=== PATIENT | male | born 1945 | race Caucasian/White ===

== ENCOUNTER → 2017-12-15 | Outpatient (CLI) | payer MEDICARE, OTHER ==
--- NOTE | 2017-12-15 10:11 | US ---
EXAMINATION TYPE: US liver DATE OF EXAM: 12/15/2017 COMPARISON: CLINICAL HISTORY: R94.5 ABN RESULTS OF LIVER. NPO, No pain, abn labs EXAM MEASUREMENTS: Liver Length: 16.7 cm Gallbladder Wall: 0.2 cm CHD: 0.4 cm Right Kidney: 11.5 x 5.6 x 5.8 cm Limited exam due to patient body habitus and overlying bowel Pancreas: Appears echogenic. Head and tail not well visualized due to overlying bowel gas. Body = 2.6 cm Liver: Limited visualized. Best seen scanned through ribs. Vessels not well visualized. Gallbladder: wnl as visualized Evidence for sonographic Huynh's sign: neg CBD: Obscured by overlying bowel gas CHD: wnl Right Kidney: wnl as visualized IMPRESSION: 1. Limited examination without distinct abnormality seen.
== END | disposition home or self-care (01) ==
LOC: RADUSWWP 08:29
PROVIDERS: ATTEND Family Medicine
DX: R94.5 Abnormal results of liver function studies (principal)
CPT/HCPCS: 76705

== ENCOUNTER 2020-06-22 04:00 | Inpatient (IN) | payer MEDICARE, OTHER ==
--- NOTE | 2020-06-22 04:57 | ED ---
URI HPI - General Chief Complaint: Upper Respiratory Infection Stated Complaint: congestion Time Seen by Provider: 06/22/20 04:22 Source: patient Mode of arrival: ambulatory Limitations: no limitations - History of Present Illness Initial Comments: Guille 75-year-old gentleman with a history of COPD who presents the ER today for evaluation of shortness of breath, feeling like he cannot catch his breath which is preventing him from sleeping, pulse 3 days of bodyaches. Patient reports that for the past 3 days he just feels like he can't catch his breath, and he reports feeling like there something in his right side of his chest that preventing him from breathing right. He states that he gets very short of breath with any exertion but is short of breath even with rest. He denies any chest pain or palpitations. He has been experiencing body aches but no fevers nausea or vomiting. No known exposures to COVID 19 but he is still working a [employer]. patient denies any cardiac history history of DVT or PE. - Related Data Home Medications Medication Instructions Recorded Confirmed Aspirin EC [Ecotrin] 325 mg PO DAILY 02/18/15 02/18/15 Benazepril [Lotensin] 10 mg PO DAILY 02/18/15 02/18/15 Diphenox-Atrop 2.5-0.025 mg 1 tab PO QID PRN 02/18/15 02/18/15 [Lomotil] Lovastatin [Mevacor] 40 mg PO HS 02/18/15 02/18/15 Multivitamins, Thera [Multivitamin] 1 tab PO DAILY 02/18/15 02/18/15 hydrOXYzine HCL [Atarax] 25 mg PO TID PRN 02/18/15 02/18/15 Previous Rx's Medication Instructions Recorded Albuterol Sulfate [Proair Hfa] 1 - 2 puff INHALATION Q6HR PRN #1 02/18/15 inhaler Amoxic-Pot Clav 875-125Mg 1 each PO Q12HR #20 tablet 02/18/15 [Augmentin Xr 875-125] Meclizine [Antivert] 25 mg PO TID PRN #20 tab 02/18/15 Allergies Allergy/AdvReac Type Severity Reaction Status Date / Time No Known Allergies Allergy Verified 06/22/20 04:12 Review of Systems ROS Statement: Those systems with pertinent positive or pertinent negative responses have been documented in the HPI. ROS Other: All systems not noted in ROS Statement are negative. Past Medical History Past Medical History: COPD, CVA/TIA, Hyperlipidemia, Hypertension History of Any Multi-Drug Resistant Organisms: None Reported Past Surgical History: Ear Surgery Past Psychological History: No Psychological Hx Reported Smoking Status: Former smoker Past Alcohol Use History: Occasional Past Drug Use History: None Reported General Exam - General Exam Comments Initial Comments: Physical Exam GENERAL: Patient is well-developed and well-nourished. Patient is nontoxic and well- hydrated and is in no distress. HENT: Normocephalic, Atraumatic. EYES: PERRL, EOMI PULMONARY: Unlabored respirations. No audible rales rhonchi or wheezing was noted. CARDIOVASCULAR: Tachycardic, irregular ABDOMEN: Soft and nontender with normal bowel sounds. SKIN: Skin is clear with no lesions or rashes and otherwise unremarkable. : Deferred NEUROLOGIC: Patient is alert and oriented x3. Moving all extremities spontaneously MUSCULOSKELETAL: Normal extremities with adequate strength and full range of motion. No lower extremity swelling or edema. No calf tenderness. PSYCHIATRIC: Normal psychiatric evaluation. Limitations: no limitations Course Vital Signs 06/22/20 06/22/20 06/22/20 04:04 05:11 05:56 Temperature 98 F Pulse Rate 103 H 155 H Respiratory 18 20 22 Rate Blood Pressure 128/96 144/78 O2 Sat by Pulse 93 L 97 Oximetry 06/22/20 06/22/20 06:00 07:00 Temperature Pulse Rate 147 H 131 H Respiratory 20 16 Rate Blood Pressure 111/73 107/83 O2 Sat by Pulse 97 98 Oximetry Medical Decision Making - Medical Decision Making the patient was seen and evaluated history is obtained from the patient and review of medical record COVID and cardiac workup was initiated After my evaluation the patient was noted to become more tachycardic, EKG was obtained which confirms A. fib with RVR bundle-branch block Additional labs ordered. Cardizem and heparin were ordered as this is a new onset A. fib Patient with persistent tachycardia despite cardizem, amiodarone added Labs otherwise relatively unremarkable CT with no evidence of PE Patient will be admitted for new onset afib rvr - Lab Data Result diagrams: 06/22/20 04:42 06/22/20 04:42 Lab Results 06/22/20 06/22/20 06/22/20 Range/Units 04:42 04:42 04:42 WBC 9.9 (3.8-10.6) k/uL RBC 5.06 (4.30-5.90) m/uL Hgb 16.1 (13.0-17.5) gm/dL Hct 48.8 (39.0-53.0) % MCV 96.4 (80.0-100.0) fL MCH 31.9 (25.0-35.0) pg MCHC 33.1 (31.0-37.0) g/dL RDW 12.5 (11.5-15.5) % Plt Count 170 (150-450) k/uL Neutrophils % 68 % Lymphocytes % 21 % Monocytes % 6 % Eosinophils % 3 % Basophils % 1 % Neutrophils # 6.8 (1.3-7.7) k/uL Lymphocytes # 2.1 (1.0-4.8) k/uL Monocytes # 0.6 (0-1.0) k/uL Eosinophils # 0.3 (0-0.7) k/uL Basophils # 0.1 (0-0.2) k/uL PT 10.3 (9.0-12.0) sec INR 1.0 (<1.2) APTT 24.6 (22.0-30.0) sec D-Dimer 4.74 H (<0.60) mg/L FEU Sodium 137 (137-145) mmol/L Potassium 4.4 (3.5-5.1) mmol/L Chloride 106 (98-107) mmol/L Carbon Dioxide 26 (22-30) mmol/L Anion Gap 5 mmol/L BUN 12 (9-20) mg/dL Creatinine 0.96 (0.66-1.25) mg/dL Est GFR (CKD-EPI)AfAm >90 (>60 ml/min/1.73 sqM) Est GFR (CKD-EPI)NonAf 79 (>60 ml/min/1.73 sqM) Glucose 162 H (74-99) mg/dL Calcium 8.8 (8.4-10.2) mg/dL Magnesium 1.9 (1.6-2.3) mg/dL Total Bilirubin 1.5 H (0.2-1.3) mg/dL AST 35 (17-59) U/L ALT 34 (4-49) U/L Alkaline Phosphatase 61 (38-126) U/L C-Reactive Protein 11.9 H (<10.0) mg/L Total Protein 6.7 (6.3-8.2) g/dL Albumin 3.4 L (3.5-5.0) g/dL TSH 2.420 (0.465-4.680) mIU/L Coronavirus (PCR) (Not Detectd) Influenza Type A RNA (Not Detectd) Influenza Type B (PCR) (Not Detectd) 06/22/20 06/22/20 Range/Units 04:42 04:42 WBC (3.8-10.6) k/uL RBC (4.30-5.90) m/uL Hgb (13.0-17.5) gm/dL Hct (39.0-53.0) % MCV (80.0-100.0) fL MCH (25.0-35.0) pg MCHC (31.0-37.0) g/dL RDW (11.5-15.5) % Plt Count (150-450) k/uL Neutrophils % % Lymphocytes % % Monocytes % % Eosinophils % % Basophils % % Neutrophils # (1.3-7.7) k/uL Lymphocytes # (1.0-4.8) k/uL Monocytes # (0-1.0) k/uL Eosinophils # (0-0.7) k/uL Basophils # (0-0.2) k/uL PT (9.0-12.0) sec INR (<1.2) APTT (22.0-30.0) sec D-Dimer (<0.60) mg/L FEU Sodium (137-145) mmol/L Potassium (3.5-5.1) mmol/L Chloride (98-107) mmol/L Carbon Dioxide (22-30) mmol/L Anion Gap mmol/L BUN (9-20) mg/dL Creatinine (0.66-1.25) mg/dL Est GFR (CKD-EPI)AfAm (>60 ml/min/1.73 sqM) Est GFR (CKD-EPI)NonAf (>60 ml/min/1.73 sqM) Glucose (74-99) mg/dL Calcium (8.4-10.2) mg/dL Magnesium (1.6-2.3) mg/dL Total Bilirubin (0.2-1.3) mg/dL AST (17-59) U/L ALT (4-49) U/L Alkaline Phosphatase (38-126) U/L C-Reactive Protein (<10.0) mg/L Total Protein (6.3-8.2) g/dL Albumin (3.5-5.0) g/dL TSH (0.465-4.680) mIU/L Coronavirus (PCR) Not Detected (Not Detectd) Influenza Type A RNA Not Detected (Not Detectd) Influenza Type B (PCR) Not Detected (Not Detectd) - EKG Data -: EKG Interpreted by Me EKG Comments: EKG was obtained due to tachycardia and complaining of shortness breath, EKG was obtained at 4:48 AM, rate is 165 rhythm is a narrow complex irregularly irregular rhythm consistent with A. fib with RVR with a right bundle branch block, QRS 134 QTC [address] elevations or depressions no evidence of acute ischemia or infarction. Critical Care Time Critical Care Time: Yes Total Critical Care Time: 30 Critical Care Time: Critical Care Time 30 Critical care time was exclusive of separately billable procedures and treating other patients and teaching time. Critical care was necessary to treat or prevent imminent or life-threatening deterioration. Given the critical condition in which the patient arrived, the patient was immediately assessed by myself and the nurse, and cardiac monitoring initiated due to the potential for rapid decompensation of the patient's clinical co ndition. During the course of the patients stay, I spent a considerable amount of time at the bedside performing serial re-evaluations of the patient's hemodynamic and clinical status because of the recognized potential threat to life or limb in this condition. I then had a chance to review not only all of the available current laboratory and radiographic studies obtained today, but I also reviewed old records available to me at the time. Additionally, any ancillary information available including application integration architect records were reviewed. Sequential vital signs were obtained. Disposition Clinical Impression: Atrial fibrillation with RVR Disposition: ADMITTED IP TO THIS HOSP Condition: Stable Is patient prescribed a controlled substance at d/c from ED?: No
--- NOTE | 2020-06-22 05:05 | XR ---
EXAM: XR Chest, 1 View CLINICAL HISTORY: ITS.REASON XR Reason: Suspected COVID-19 pneumonia TECHNIQUE: Frontal view of the chest. COMPARISON: CT chest dated 03/16/2015 and chest x-ray dated 03/06/2015 FINDINGS: Lungs: Subtle diffuse airspace opacities concerning for infectious process. Pleural space: Unremarkable. Heart: Enlarged cardiomediastinal silhouette. Mediastinum: See above. Bones/joints: Unremarkable. IMPRESSION: Subtle diffuse airspace opacities concerning for an infectious process.
[2020-06-22] MEDS ORDERED: DILTIAZEM DRIP BOLUS FROM BAG 1 MG SOLN IV ONE (05:06)
[2020-06-22] MEDS ORDERED: HEPARIN SODIUM,PORCINE 5,000 UNIT/ML 1 ML VIAL IV PRN (05:07)
[2020-06-22] MEDS ORDERED: HEPARIN SODIUM,PORCINE 5,000 UNIT/ML 1 ML VIAL IV ONE (05:07)
[2020-06-22 05:12] LABS: Basophils # (A) 0.1 k/uL (0-0.2); Basophils % (A) 1 %; Eosinophils # (A) 0.3 k/uL (0-0.7); Eosinophils % (A) 3 %; HCT 48.8 % (39.0-53.0); HGB 16.1 gm/dL (13.0-17.5); Lymphocytes # (A) 2.1 k/uL (1.0-4.8); Lymphocytes % (A) 21 %; MCH 31.9 pg (25.0-35.0); MCHC 33.1 g/dL (31.0-37.0); MCV 96.4 fL (80.0-100.0); Mean Platelet Volume 8.4; Monocytes # (A) 0.6 k/uL (0-1.0); Monocytes % (A) 6 %; Neutrophils # (A) 6.8 k/uL (1.3-7.7); Neutrophils % (A) 68 %; Platelet Count 170 k/uL (150-450); RBC 5.06 m/uL (4.30-5.90); RDW 12.5 % (11.5-15.5); WBC 9.9 k/uL (3.8-10.6)
[2020-06-22] MEDS ORDERED: DILTIAZEM 125 MG in SODIUM CHLORIDE 0.9% 100 ML IV SCH (05:15)
[2020-06-22 05:26] LABS: ALT 34 U/L (4-49); AST 35 U/L (17-59); African American GFR (CKD) >90 (>60 ml/min/1.73 sqM); Albumin 3.4 g/dL (3.5-5.0); Alkaline Phosphatase 61 U/L (38-126); Anion Gap 5 mmol/L; Blood Urea Nitrogen 12 mg/dL (9-20); C Reactive Protein 11.9 mg/L (<10.0); Calcium 8.8 mg/dL (8.4-10.2); Carbon Dioxide 26 mmol/L (22-30); Chloride 106 mmol/L (98-107); Glucose 162 mg/dL (74-99); Magnesium 1.9 mg/dL (1.6-2.3); Non-African American GFR(CKD) 79 (>60 ml/min/1.73 sqM); Potassium 4.4 mmol/L (3.5-5.1); Sodium 137 mmol/L (137-145); Total Bilirubin 1.5 mg/dL (0.2-1.3); Total Protein 6.7 g/dL (6.3-8.2)
[2020-06-22] MEDS: HEPARIN SOD,PORK IN 0.45% NACL 25,000 UNIT in 0.45% NACL 1 250ML.BAG IV SCH ×2 (05:33→22:27)
[2020-06-22 05:36] LABS: Partial Thromboplastin Time 24.6 sec (22.0-30.0); Prothrombin Time 10.3 sec (9.0-12.0)
[2020-06-22 05:39] LABS: D-Dimer 4.74 mg/L FEU (<0.60)
--- NOTE | 2020-06-22 06:36 | CT ---
EXAMINATION TYPE: CT chest angio for PE DATE OF EXAM: 06/22/2020 COMPARISON: Prior chest CT March 16, 2015. HISTORY: SOB, elevated d dimer CT DLP: 867.9 mGycm Automated exposure control for dose reduction was used. CONTRAST: CT Chest for pulmonary embolism performed with with IV Contrast, patient injected with 100 mL of Isov ue 370. FINDINGS: LUNGS: Exam suboptimal as patient unable to hold breath causing respiratory motion artifact limiting evaluation for subcentimeter nodules. Note is made of a 5 mm posterior right lower lobe nodule axial image 92. Likely stable in retrospect from prior study axial image 33. Presumed benign. There are sma ll bilateral pleural effusions on current study. Mild linear scarring and/or atelectasis in both base s. Some dependent atelectasis and/or limited infiltrate along the major fissure left upper lobe. No p neumothorax bilaterally. Mild diffuse interstitial prominence. MEDIASTINUM: There is satisfactory enhancement of the pulmonary artery and its branches, there is no CT evidence for pulmonary embolism. Satisfactory enhancement of the aorta without aneurysm or dissect ion. There are no greater than 1 cm hilar or mediastinal lymph nodes. No pericardial effusion is se en. Lipomatous hypertrophy of the intra-arterial septum. Heart size upper limits of normal. OTHER: Liver diffusely low dense with scattered punctate calcifications. Occasional punctate calcifi cations throughout the spleen. Findings consistent with product of old granulomatous disease. Scolios is with multilevel spurring in the spine. IMPRESSION: 1. Suboptimal study without CT evidence for acute pulmonary embolism. 2. Small bilateral pleural effusions with mild interstitial edema, correlate for CHF exacerbation and /or fluid overload state. Cannot exclude area of acute infiltrate posterior aspect left upper lobe.
[2020-06-22] MEDS ORDERED: AZITHROMYCIN 500 MG in SODIUM CHLORIDE 0.9% 250 ML IVPB STA (06:38)
[2020-06-22] MEDS ORDERED: cefTRIAXone IN SWFI 1,000 MG/10 ML SYRINGE IVP STA (06:38)
[2020-06-22] MEDS ORDERED: NALOXONE 0.4 MG/ML 1 ML VIAL IV PRN (06:49)
[2020-06-22] MEDS ORDERED: DEXTROSE 5% IN WATER 250 ML with AMIODARONE 300 MG IV ONE (07:22)
[2020-06-22] MEDS ORDERED: DEXTROSE 5% IN WATER 100 ML with AMIODARONE 150 MG IV ONE ×2 (07:22→07:30)
[2020-06-22] MEDS ORDERED: AMIODARONE 360 MG in DEXTROSE 5% IN WATER 200 ML IV ONE ×2 (07:30)
--- NOTE | 2020-06-22 08:37 | P.CRDCN ---
History of Present Illness Consult date: 06/22/20 Chief complaint: Shortness of breath History of present illness: This is a very pleasant 75-year-old gentleman who is somewhat poor historian wit h history of hypertension and dyslipidemia who presented to the emergency department complaining of shortness of breath. The patient symptoms started about 3 days ago with some upper respiratory symptoms of runny nose and sore throat. Initially he thought he got the flu symptoms. Subsequently he started experiencing shortness of breath with exertion without any symptoms of chest pain or chest discomfort. No dizziness or lightheadedness or heart racing or fluttering or syncope. Because the shortness of breath progressively decided to come to the emergency department. He in the ER the patient was tested for COVD- 19 and the test came in to be negative. In the ER he was found to be in atrial fibrillation with rapid ventricular response and heart rate around 130 beats per minutes. This is a new diagnosed with the patient. The patient is not aware of any prior history of atrial fibrillation or coronary artery disease or congestive heart failure or any kind of cardiac arrhythmia. Initially he was started on Cardizem drip but his pressure dipped down and because of that the Cardizem was stopped and he was started on amiodarone IV. Beside that he is on heparin IV. On examination the patient does have diminished breathing sounds bilaterally with some crackles in both lung bases. The chest x-ray showed pulmonary vascular congestion. Computed tomography scan of the chest was performed and showed no PE but small bilateral pleural effusion. No proBNP was ordered at this point. No recent echocardiogram. I am going to add a small dose of Lasix to the current medical regimen. The patient will be admitted to the hospital. Obviously he will be on oral anticoagulation down the line. He stated that in the past he did have history of "mini stroke". Past Medical History Past Medical History: COPD, CVA/TIA, Hyperlipidemia, Hypertension Additional Past Medical History / Comment(s): IBS History of Any Multi-Drug Resistant Organisms: None Reported Past Surgical History: Ear Surgery Past Anesthesia/Blood Transfusion Reactions: No Reported Reaction Past Psychological History: No Psychological Hx Reported Smoking Status: Former smoker Past Alcohol Use History: Occasional Past Drug Use History: None Reported - Past Family History Mother Family Medical History: Cancer, Pneumonia Additional Family Medical History / Comment(s): breast CA Father Family Medical History: Coronary Artery Disease (CAD), Myocardial Infarction (MS) Additional Family Medical History / Comment(s): Open heart surgery in for valve repairment, of heart attack in 1997 Medications and Allergies Home Medications Medication Instructions Recorded Confirmed Type Benazepril [Lotensin] 10 mg PO DAILY 02/18/15 06/22/20 History Diphenox-Atrop 2.5-0.025 mg 1 tab PO QID PRN 02/18/15 06/22/20 History [Lomotil] Lovastatin [Mevacor] 40 mg PO HS 02/18/15 06/22/20 History Multivitamins, Thera [Multivitamin] 1 tab PO DAILY 02/18/15 06/22/20 History Aspirin EC [Ecotrin Low Dose] 81 mg PO DAILY 06/22/20 06/22/20 History Cholecalciferol [Vitamin D3 (25 1,000 unit PO DAILY 06/22/20 06/22/20 History Mcg = 1000 Iu)] Melatonin 3 mg PO HS 06/22/20 06/22/20 History Zinc 50 mg PO DAILY 06/22/20 06/22/20 History Allergies Allergy/AdvReac Type Severity Reaction Status Date / Time No Known Allergies Allergy Verified 06/22/20 08:23 Physical Exam Vitals: Vital Signs Temp Pulse Resp BP Pulse Ox 06/22/20 07:00 131 H 16 107/83 98 06/22/20 06:00 147 H 20 111/73 97 06/22/20 05:56 22 06/22/20 05:11 155 H 20 144/78 97 06/22/20 04:04 98 F 103 H 18 128/96 93 L Intake and Output 06/21/20 06/22/20 06/22/20 22:59 06:59 14:59 Other: Weight 136.078 kg 136.078 kg - Constitutional General appearance: no acute distress - Respiratory Respiratory: bilateral: diminished, rhonchi - Cardiovascular Rhythm: irregularly irregular Heart sounds: normal: S1, S2 Abnormal Heart Sounds: systolic murmur Results 06/22/20 04:42 06/22/20 04:42 Cardiac Enzymes 06/22/20 06/22/20 Range/Units 04:42 04:42 AST 35 (17-59) U/L Troponin I <0.012 (0.000-0.034) ng/mL Coagulation 06/22/20 Range/Units 04:42 PT 10.3 (9.0-12.0) sec APTT 24.6 (22.0-30.0) sec CBC 06/22/20 Range/Units 04:42 WBC 9.9 (3.8-10.6) k/uL RBC 5.06 (4.30-5.90) m/uL Hgb 16.1 (13.0-17.5) gm/dL Hct 48.8 (39.0-53.0) % Plt Count 170 (150-450) k/uL Comprehensive Metabolic Panel 06/22/20 Range/Units 04:42 Sodium 137 (137-145) mmol/L Potassium 4.4 (3.5-5.1) mmol/L Chloride 106 (98-107) mmol/L Carbon Dioxide 26 (22-30) mmol/L BUN 12 (9-20) mg/dL Creatinine 0.96 (0.66-1.25) mg/dL Glucose 162 H (74-99) mg/dL Calcium 8.8 (8.4-10.2) mg/dL AST 35 (17-59) U/L ALT 34 (4-49) U/L Alkaline Phosphatase 61 (38-126) U/L Total Protein 6.7 (6.3-8.2) g/dL Albumin 3.4 L (3.5-5.0) g/dL Current Medications Generic Name Dose Route Start Last Admin Trade Name Freq PRN Reason Stop Dose Admin Heparin Sodium (Porcine) 0 unit 06/22/20 05:07 Heparin Sodium,Porcine 5,000 Unit/Ml 1 Ml Vial IV PER PROTOCOL PRN Low PTT Protocol Heparin Sodium/Sodium Chloride 250 mls @ 9.525 mls/hr 06/22/20 05:15 06/22/20 05:33 25,000 unit/ Sodium Chloride IV 7 units/kg/hr .Q24H BRENNA 9.525 mls/hr Administration Protocol 7 UNITS/KG/HR Amiodarone HCl 300 mg/ 250 mls @ 25 mls/hr 06/22/20 13:30 Dextrose/Water IV 06/23/20 07:29 .Q10H BRENNA Protocol 0.5 MG/MIN Amiodarone HCl 360 mg/ 200 mls @ 33.333 mls/hr 06/22/20 07:30 06/22/20 08:04 Dextrose/Water IV 06/22/20 13:29 1 mg/min .Q6H ONE 33.333 mls/hr Administration Protocol 1 MG/MIN Naloxone HCl 0.2 mg 06/22/20 06:49 Naloxone 0.4 Mg/Ml 1 Ml Vial IV Q2M PRN Opioid Reversal Intake and Output 06/21/20 06/22/20 06/22/20 22:59 06:59 14:59 Other: Weight 136.078 kg 136.078 kg Patient Weight 06/23/20 06:59 Weight 136.078 kg 06/22/20 04:42 06/22/20 04:42 Assessment and Plan Assessment: Assessment #1 atrial fibrillation with rapid ventricular response. This is a newly diagnosed with the patient #2 morbid obesity #3 possible sleep apnea #4 hypertension #5 dyslipidemia #6 history of stroke Plan #1 continue amiodarone IV #2 continue heparin IV #3 consider switching the patient to oral anticoagulation #4 obtain an echocardiogram was Doppler #5 rule out acute coronary event #6 PE was ruled out by a negative CTA #7 the patient will be admitted to the third floor #8 follow-up with the patient
[2020-06-22] MEDS ORDERED: FUROSEMIDE 10 MG/ML 2 ML VIAL IV SCH (09:00)
[2020-06-22] MEDS ORDERED: DIPHENOX-ATROP 2.5-0.025 MG 1 EACH TAB PO PRN (10:30)
[2020-06-22] MEDS ORDERED: MELATONIN 3 MG TABLET PO PRN (10:30)
--- NOTE | 2020-06-22 12:00 | ECHOF ---
Referral Reason:nos afib, chf MEASUREMENTS -------- HEIGHT: 190.5 cm WEIGHT: 136.1 kg BP: 107/83 IVSd: 1.3 cm (0.6 - 1.1) LVIDd: 4.2 cm (3.9 - 5.3) LVPWd: 1.1 cm (0.6 - 1.1) IVSs: 1.6 cm LVIDs: 3.5 cm LVPWs: 1.7 cm RVIDd: 3.1 cm (< 3.3) LAESV Index (A-L): 36.68 ml/m RAP: 5.00 mmHg RVSP: 33.52 mmHg FINDINGS -------- Atrial fibrillation with RVR. This was a technically difficult study with suboptimal views. The left ventricular size is normal. There is mild concentric left ventricular hypertrophy. There is moderate global hypokinesis of LV . Overall left ventricular systolic function is moderate-tyrell rely impaired with, an EF between 30 - 35 %. The right ventricle is normal in size. LA is moderately dilated 34-39 ml/m2 The right atrium is mildly enlarged. 5.0mg of Lumason was utilized for enhancement of images Interatrial and interventricular septum intact. The aortic valve is trileaflet and appears structurally normal. There is no evidence of aortic regu rgitation. There is no evidence of aortic stenosis. Mild mitral regurgitation is present. Moderate tricuspid regurgitation present. There is mild pulmonary hypertension. The right ventric ular systolic pressure, as measured by Doppler, is 33.52mmHg. There is no pulmonic regurgitation present. The aortic root size is normal. IVC Not well visulized. Echo free space represents a pericardial fat pad. There is no pericardial effusion. CONCLUSIONS -------- 1. Atrial fibrillation with RVR. 2. The left ventricular size is normal. 3. There is mild concentric left ventricular hypertrophy. 4. There is moderate global hypokinesis of LV . 5. Overall left ventricular systolic function is moderate-severely impaired with, an EF between 30 - 35 %. 6. LA is moderately dilated 34-39 ml/m2 7. The right atrium is mildly enlarged. 8. Mild mitral regurgitation is present. 9. Moderate tricuspid regurgitation present. 10. There is mild pulmonary hypertension. 11. The right ventricular systolic pressure, as measured by Doppler, is 33.52mmHg. 12. Echo free space represents a pericardial fat pad. TIRE [employer] IMPREGNATING RANGE TENDER: Marylou Fuller RDCS
[2020-06-22] MEDS: AMIODARONE 300 MG in DEXTROSE 5% IN WATER 250 ML IV SCH ×4 (13:33→22:21)
[2020-06-22] MEDS: METOPROLOL TARTRATE 25 MG TAB PO SCH ×2 (13:49→21:00)
--- NOTE | 2020-06-22 15:43 | P.HPIM ---
History of Present Illness Patient is a pleasant 75-year-old male came in with complaints of generalized weakness tenderness found to be in atrial fibrillation. Patient was having some flulike symptoms which started 3-4 days ago with runny nose and sore throat. The uterus symptoms improved at this time and patient and orthopnea proximal dyspnea but patient does have pulmonary edema on the chest x-ray found to have EF of around 30-35%. Patient initially was started on Cardizem which was subsequently discontinued patient was hypotensive as well. Patient is presently and amiodarone IV along with IV heparin, IV Lasix which will be increased to 40 mg twice a day. Patient does have bibasilar crackles and examined with elevated JVD. Patient was tested negative for Covid 19 an influenza patient doesn't have any other evidence of sepsis at this time. Review of Systems REVIEW OF SYSTEMS: CONSTITUTIONAL: No fever. HEENT: No recent visual problems or hearing problems. Denied any sore throat. CARDIOVASCULAR: No chest pain, orthopnea, PND, no syncope. PULMONARY: no hemoptysis. GASTROINTESTINAL: No diarrhea, no nausea, no vomiting, no abdominal pain. NEUROLOGICAL: No headaches, no weakness, no numbness. HEMATOLOGICAL: Denies any bleeding or petechiae. GENITOURINARY: Denies any burning micturition, frequency, or urgency. MUSCULOSKELETAL/RHEUMATOLOGICAL: Denies any joint pain, swelling, or any muscle pain. ENDOCRINE: Denies any polyuria or polydipsia. The rest of the 14-point review of systems is negative. Past Medical History Past Medical History: COPD, CVA/TIA, Hyperlipidemia, Hypertension Additional Past Medical History / Comment(s): IBS History of Any Multi-Drug Resistant Organisms: None Reported Past Surgical History: Ear Surgery Past Anesthesia/Blood Transfusion Reactions: No Reported Reaction Past Psychological History: No Psychological Hx Reported Smoking Status: Former smoker Past Alcohol Use History: Occasional Past Drug Use History: None Reported - Past Family History Mother Family Medical History: Cancer, Pneumonia Additional Family Medical History / Comment(s): breast CA Father Family Medical History: Coronary Artery Disease (CAD), Myocardial Infarction ([place]) Additional Family Medical History / Comment(s): Open heart surgery in ' for valve repairment, of heart attack in 1997 Medications and Allergies Home Medications Medication Instructions Recorded Confirmed Type Benazepril [Lotensin] 10 mg PO DAILY 02/18/15 06/22/20 History Diphenox-Atrop 2.5-0.025 mg 1 tab PO QID PRN 02/18/15 06/22/20 History [Lomotil] Lovastatin [Mevacor] 40 mg PO HS 02/18/15 06/22/20 History Multivitamins, Thera [Multivitamin] 1 tab PO DAILY 02/18/15 06/22/20 History Aspirin EC [Ecotrin Low Dose] 81 mg PO DAILY 06/22/20 06/22/20 History Cholecalciferol [Vitamin D3 (25 1,000 unit PO DAILY 06/22/20 06/22/20 History Mcg = 1000 Iu)] Melatonin 3 mg PO HS 06/22/20 06/22/20 History Zinc 50 mg PO DAILY 06/22/20 06/22/20 History Allergies Allergy/AdvReac Type Severity Reaction Status Date / Time No Known Allergies Allergy Verified 06/22/20 08:23 Physical Exam Vitals: Vital Signs Temp Pulse Pulse Resp BP BP Pulse Ox 06/22/20 15:34 120 H 06/22/20 15:29 98.2 F 120 H 20 109/89 95 06/22/20 13:47 156 H 20 107/97 98 06/22/20 11:20 97.8 F 146 H 16 136/89 95 06/22/20 10:32 126 H 120/93 06/22/20 10:09 128 H 16 105/89 06/22/20 09:50 134 H 18 133/111 95 06/22/20 09:26 134 H 16 118/81 95 06/22/20 08:56 137 H 18 112/86 94 L 06/22/20 08:30 98.7 F 138 H 18 119/97 94 L 06/22/20 07:00 131 H 16 107/83 98 06/22/20 06:00 147 H 20 111/73 97 06/22/20 05:56 22 06/22/20 05:11 155 H 20 144/78 97 06/22/20 04:04 98 F 103 H 18 128/96 93 L Intake and Output 06/22/20 06/22/20 06/22/20 06:59 14:59 22:59 Intake Total 76.041 Balance 76.041 Intake: Intake, IV Titration 76.041 Amount Heparin Sod,Pork in 0.45% 76.041 NaCl 25,000 unit In 0.45 % NaCl 1 250ml.bag @ 7 UNITS/KG/HR 9.525 mls/hr IV .Q24H [facility] Rx#: [id number] Other: Weight 136.078 kg 136.078 kg PHYSICAL EXAMINATION: GENERAL: The patient is alert and oriented x3, not in any acute distress. Obese HEENT: Pupils are round and equally reacting to light. EOMI. No scleral icterus. No conjunctival pallor. Normocephalic, atraumatic. No pharyngeal erythema. No thyromegaly. CARDIOVASCULAR: S1 and S2 present. No murmurs, rubs, or gallops. Active cardiac regularly irregular rhythm PULMONARY: Mild bibasilar crackles good air entry into bilateral lung cox ABDOMEN: Soft, nontender, nondistended, normoactive bowel sounds. No palpable organomegaly. MUSCULOSKELETAL: No joint swelling or deformity. EXTREMITIES: No cyanosis, clubbing, or pedal edema. NEUROLOGICAL: Gross neurological examination did not reveal any focal deficits. SKIN: No rashes. Results CBC & Chem 7: 06/22/20 04:42 06/22/20 04:42 Labs: Abnormal Lab Results - Last 24 Hours (Table) 06/22/20 06/22/20 06/22/20 Range/Units 04:42 04:42 12:13 APTT 35.7 H (22.0-30.0) sec D-Dimer 4.74 H (<0.60) mg/L FEU Glucose 162 H (74-99) mg/dL Total Bilirubin 1.5 H (0.2-1.3) mg/dL C-Reactive Protein 11.9 H (<10.0) mg/L Albumin 3.4 L (3.5-5.0) g/dL Thrombosis Risk Factor Assmnt - Choose All That Apply Any of the Below Risk Factors Present?: Yes Each Factor Represents 1 point: Obesity (BMI >25) Each Risk Factor Represents 2 Points: Age 61-74 years Thrombosis Risk Factor Assessment Total Risk Factor Score: 3 Thrombosis Risk Factor Assessment Level: Moderate Risk Assessment and Plan Plan: -New onset atrial fibrillation: Patient will be continued on amiodarone IV patient will be continued on anticoagulation. -Congestive heart failure systolic dysfunction most probably acute systolic dysfunction with acute exacerbation his systolic dysfunction may be related to atrial fibrillation. Patient will be continued on IV Lasix at 40 mg twice a day repeat basic metabolic profile tomorrow - obesity -Possibly of sleep apnea patient was never tested for sleep apnea -Hypertension -Dyslipidemia -COPD without any acute exacerbation -Rule out pulmonary embolism with a CT angio of the chest.
[2020-06-22] MEDS: FUROSEMIDE 10 MG/ML 4 ML VIAL IV SCH (21:00)
[2020-06-22] MEDS: ATORVASTATIN 10 MG TAB PO SCH (21:00)
[2020-06-23] MEDS: AMIODARONE 200 MG TAB PO SCH ×3 (08:50→21:30)
[2020-06-23] MEDS: METOPROLOL TARTRATE 50 MG TAB PO SCH ×2 (08:50→21:30)
[2020-06-23] MEDS: SODIUM CHLORIDE 0.9% 1,000 ML IV SCH (08:51)
[2020-06-23] MEDS: FUROSEMIDE 10 MG/ML 4 ML VIAL IV SCH (08:52)
[2020-06-23] MEDS: ZINC SULFATE 220 MG CAP PO SCH (09:02)
[2020-06-23 09:36] LABS: Basophils % (A) 0 %; Eosinophils # (A) 0.1 k/uL (0-0.7); Eosinophils % (A) 1 %; HGB 15.7 gm/dL (13.0-17.5); Lymphocytes # (A) 3.1 k/uL (1.0-4.8); Lymphocytes % (A) 29 %; MCH 31.9 pg (25.0-35.0); MCV 99.8 fL (80.0-100.0); Mean Platelet Volume 9.6; Monocytes # (A) 0.6 k/uL (0-1.0); Monocytes % (A) 6 %; Neutrophils # (A) 6.8 k/uL (1.3-7.7); Neutrophils % (A) 62 %; Platelet Count 164 k/uL (150-450); RBC 4.91 m/uL (4.30-5.90); RDW 13.1 % (11.5-15.5); WBC 10.9 k/uL (3.8-10.6)
--- NOTE | 2020-06-23 09:41 | P.PN ---
Subjective Progress Note Date: 06/23/20 This is a pleasant 75-year-old gentleman who follows with Dr. Chin in the office. He has a documented history of hypertension, hyperlipidemia,prior nicotine dependence, prior TIA, COPD, presented to the hospital with symptoms of shortness of breath with chest started approximately 3 days prior to his presentation here. He also had some upper respiratory symptoms with associated runny nose and sore throat. In the emergency room the patient was tested for Covid 19 which came back to be negative. His initial EKG showed atrial fibrillation with a rapid ventricular response for which a ca rdiology consultation was requested. Atrial fibrillation appears to be new for the patient, on examination this morning he continues to be in atrial fibrillation with a heart rate in the 120 to 1:30 range. The patient was initiated on IV amiodarone yesterday, this morning we changed him over to oral amiodarone and increase his dose of beta sanam. I also had a discussion this morning with the patient regarding proceeding with a ZENAIDA and elective cardioversion. Patient was explained the risks and the benefits of the procedure and he is willing to proceed. This will be performed later today by Dr. Chin. Echocardiogram with Doppler study was performed which revealed an ejection fraction of 30-35%, moderate tricuspid regurgitation. Upon review of the office notes, the patient's most recent echocardiogram with Doppler study which was performed in 2017 revealed a normal left ventricular systolic function. It is possible that the patient's reduction in LV function could be secondary to A. fib with RVR. Blood pressure this morning 132/60 with a heart rate in the 120s, 90% on room air. No laboratory data today. TSH performed yesterday was negative. Influenza A and B-. Objective - Vital Signs Vital signs: Vital Signs Temp 97.5 F L 06/23/20 08:00 Pulse 120 H 06/23/20 08:00 Resp 18 06/23/20 08:00 BP 133/61 06/23/20 08:00 Pulse Ox 92 L 06/23/20 08:00 Intake & Output 06/22/20 06/23/20 06/23/20 18:59 06:59 18:59 Intake Total 76.041 329.202 Output Total 200 Balance 76.041 129.202 Weight 136.078 kg 134.5 kg Intake: Intake, IV Titration 76.041 329.202 Amount Amiodarone 300 mg In 220 Dextrose 5% in Water 250 ml @ 0.5 MG/MIN 25 mls/hr IV .Q10H [facility] Rx#: [id number] Heparin Sod,Pork in 0.45% 76.041 109.202 NaCl 25,000 unit In 0.45 % NaCl 1 250ml.bag @ 7 UNITS/KG/HR 9.525 mls/hr IV .Q24H [facility] Rx#: [id number] Output: Urine 200 Other: Voiding Method Urinal - Exam PHYSICAL EXAMINATION: GENERAL: 75-year-old gentleman in no acute distress at the time of my examination HEENT: Head is atraumatic, normocephalic. Pupils equal, round. Sclera anicteric. Conjunctiva are clear. Mucous membranes of the mouth are moist. Neck is supple. There is no elevated jugular venous pressure. No carotid bruit is heard. HEART EXAMINATION: Heart S1 and S2 irregularly irregular a systolic ejection murmur is heard at the base CHEST EXAMINATION: Lungs are clear with mild diminished air entry to the bases bilaterally ABDOMEN: Soft, nontender. Bowel sounds are heard. No organomegaly noted. EXTREMITIES: 2+ peripheral pulses with no evidence of peripheral edema and no calf tenderness noted. NEUROLOGIC patient is awake, alert and oriented 3 . - Labs CBC & Chem 7: 06/22/20 04:42 06/22/20 04:42 Labs: Abnormal Lab Results - Last 24 Hours (Table) 06/22/20 06/22/20 Range/Units 12:13 19:53 APTT 35.7 H 61.0 H (22.0-30.0) sec Assessment and Plan Plan: Assessment and plan #1 atrial fibrillation with rapid ventricular response, persistent, new diagnosis for the patient #2 morbid obesity #3 hypertension #4 hyperlipidemia #5 history of CVA #6 influenza A and B-, Covid 19 testing negative. #7 cardiomyopathy, likely secondary to A. fib with RVR Plan We will start the patient on oral amiodarone, continue IV heparin, increase dose of beta sanam. Patient will be scheduled to undergo a ZENAIDA with subsequent cardioversion today by Dr. Chin. We will also look into oral anticoagulation, and initiate that post cardioversion. DNP note has been reviewed, I agree with a documented findings and plan of care. Patient was seen and examined.
--- NOTE | 2020-06-23 14:25 | P.PN ---
Subjective Patient admitted for new onset atrial fibrillation. Patient heart rate is still not well-controlled patient is presently on amiodarone IV. On metoprolol. Patient blood pressures better today ration is pretty status improved patient is found to have a low EF of around 30-35% may be related to atrial fibrillation patient will undergo cardioversion today patient remains on heparin after cardiac patient patient probably will be transitioned to oral anticoagulation. Patient was started on low-dose of lisinopril, patient is off oxygen today satu rations improved heart rate remains high. Blood pressure improved. Constitutional: Denied any fatigue denied any fever. Cardio vascular: denied any chest pain, palpitations Gastrointestinal denied any nausea vomiting Pulmonary: Denied any shortness of breath cough Neurologic denied any new focal deficits All inpatient medications were reviewed and appropriate changes in these medications as dictated in the interval history and assessment and plan. Objective - Vital Signs Vital signs: Vital Signs Temp 97.7 F 06/23/20 12:10 Pulse 130 H 06/23/20 12:10 Resp 18 06/23/20 12:10 BP 128/57 06/23/20 12:10 Pulse Ox 93 L 06/23/20 12:10 Intake & Output 06/22/20 06/23/20 06/23/20 18:59 06:59 18:59 Intake Total 76.041 329.202 360 Output Total 200 Balance 76.041 129.202 360 Weight 136.078 kg 134.5 kg Intake: Intake, IV Titration 76.041 329.202 Amount Amiodarone 300 mg In 220 Dextrose 5% in Water 250 ml @ 0.5 MG/MIN 25 mls/hr IV .Q10H [facility] Rx#: [id number] Heparin Sod,Pork in 0.45% 76.041 109.202 NaCl 25,000 unit In 0.45 % NaCl 1 250ml.bag @ 7 UNITS/KG/HR 9.525 mls/hr IV .Q24H [facility] Rx#: [id number] Oral 360 Output: Urine 200 Other: Voiding Method Urinal # Voids 2 - Exam PHYSICAL EXAMINATION: GENERAL: The patient is alert and oriented x3, not in any acute distress. Obese HEENT: Pupils are round and equally reacting to light. EOMI. No scleral icterus. No conjunctival pallor. Normocephalic, atraumatic. No pharyngeal erythema. No thyromegaly. CARDIOVASCULAR: S1 and S2 present. No murmurs, rubs, or gallops. Active cardiac regularly irregular rhythm PULMONARY: Mild bibasilar crackles good air entry into bilateral lung cox ABDOMEN: Soft, nontender, nondistended, normoactive bowel sounds. No palpable organomegaly. MUSCULOSKELETAL: No joint swelling or deformity. EXTREMITIES: No cyanosis, clubbing, or pedal edema. NEUROLOGICAL: Gross neurological examination did not reveal any focal deficits. SKIN: No rashes. - Labs CBC & Chem 7: 06/23/20 09:08 06/22/20 04:42 Labs: Abnormal Lab Results - Last 24 Hours (Table) 06/22/20 06/23/20 06/23/20 Range/Units 19:53 09:08 10:04 WBC 10.9 H (3.8-10.6) k/uL APTT 61.0 H 56.9 H (22.0-30.0) sec Microbiology - Last 24 Hours (Table) 06/22/20 07:40 Blood Culture - Preliminary Blood No Growth after 24 hours Assessment and Plan Plan: -New onset atrial fibrillation: Patient will be continued on amiodarone IV patient will be continued on anticoagulation. Patient is presently on metoprolol as well heart rate is not well controlled patient will undergo cardioversion today. Presently on heparin which will probably be transitioned to oral anticoagulation after cardioversion -Congestive heart failure systolic dysfunction most probably acute systolic dysfunction with acute exacerbation his systolic dysfunction may be related to atrial fibrillation. Patient will be continued on IV Lasix at 40 mg twice a day repeat basic metabolic profile tomorrow. Patient was started on lisinopril. - obesity -Possibly of sleep apnea patient was never tested for sleep apnea -Hypertension -Dyslipidemia -COPD without any acute exacerbation -Rule out pulmonary embolism with a CT angio of the chest.
[2020-06-23] MEDS: ATORVASTATIN 10 MG TAB PO SCH (21:30)
[2020-06-23] MEDS: APIXABAN 5 MG TAB PO SCH (21:30)
[2020-06-24] MEDS ORDERED: SODIUM CHLORIDE 0.9% 1,000 ML IV ONE (07:03)
[2020-06-24] MEDS: BENZOCAINE SPRAY 1 CAN MUCOUS MEM ONE ×2 (07:18→07:22)
[2020-06-24] MEDS ORDERED: LIDOCAINE 1% INJ 10MG/ML (20 ML MDV) ONE (07:28)
[2020-06-24] MEDS ORDERED: PROPOFOL 10 MG/ML 20 ML VIAL IV ONE (07:28)
[2020-06-24] MEDS: SODIUM CHLORIDE 0.9% 1,000 ML IV SCH (07:53)
[2020-06-24] MEDS ORDERED: SODIUM CHLORIDE 0.9% 1,000 ML IV SCH (08:00)
[2020-06-24 08:05] VITALS: RESP 16
[2020-06-24 08:29] VITALS: BP 108/64; PULSE 112
[2020-06-24] MEDS: METOPROLOL TARTRATE 50 MG TAB PO SCH (08:54)
[2020-06-24] MEDS: APIXABAN 5 MG TAB PO SCH (08:54)
[2020-06-24] MEDS: ZINC SULFATE 220 MG CAP PO SCH (08:58)
[2020-06-24] MEDS ORDERED: SPIRONOLACTONE 25 MG TAB PO SCH (09:00)
[2020-06-24] MEDS ORDERED: AMIODARONE 200 MG TAB PO SCH (09:00)
[2020-06-24 09:13] VITALS: TEMP 98
[2020-06-24 09:53] LABS: Basophils % (A) 1 %; Eosinophils # (A) 0.2 k/uL (0-0.7); Eosinophils % (A) 2 %; HCT 47.1 % (39.0-53.0); HGB 15.3 gm/dL (13.0-17.5); Lymphocytes # (A) 1.9 k/uL (1.0-4.8); Lymphocytes % (A) 23 %; MCH 32.1 pg (25.0-35.0); MCHC 32.4 g/dL (31.0-37.0); MCV 99.2 fL (80.0-100.0); Mean Platelet Volume 8.7; Monocytes # (A) 0.6 k/uL (0-1.0); Monocytes % (A) 7 %; Neutrophils # (A) 5.3 k/uL (1.3-7.7); Neutrophils % (A) 65 %; Platelet Count 147 k/uL (150-450); RBC 4.75 m/uL (4.30-5.90); RDW 12.6 % (11.5-15.5); WBC 8.2 k/uL (3.8-10.6)
[2020-06-24 10:11] LABS: Calcium 8.7 mg/dL (8.4-10.2); Potassium 4.7 mmol/L (3.5-5.1)
--- NOTE | 2020-06-24 11:04 | ECHOT ---
TRANSESOPHAGEAL ECHOCARDIOGRAM INDICATION: Evaluation left atrial appendage. PROCEDURE: After explaining the procedure to the patient as well as its risks and the complications, his blood pressure, heart rate, O2 saturation was monitored. The throat was sprayed with Cetacaine, he received sedation per Anesthesia Department. The probe was introduced esophagus without difficulty images were obtained from that. The probe was removed there was no immediate complication. FINDINGS: Left atrial size is dilated. Left atrial appendage revealed an echogenic area consistent with a thrombus. Left ventricular size is normal. There is evidence of global hypokinesis, estimated ejection fraction is 30% to 35%. The aortic valve revealed mild fibrocalcific change with aortic cusp with preserved opening, mild mitral annulus calcification was noted. No pericardial effusion was noted. The descending thoracic aorta is normal. Contrast bubble study revealed no shunting across the interatrial septum. DOPPLER: Pulse wave and color Doppler obtained and revealed moderate mitral with mild tricuspid regurgitation. There was no shunting across the interatrial septum. CONCLUSION: Dilated left atrium with evidence of left atrial appendage thrombus. Lipomatous hypertrophy of the interatrial septum. Moderately severely impaired left ventricular systolic function with global hypokinesis. Moderate mitral and mild tricuspid regurgitation. Aortic sclerosis with no stenosis. No evidence shunting across the interatrial septum MMODL / IJN: [id number] /
--- NOTE | 2020-06-24 11:10 | P.DS ---
Providers Date of admission: 06/22/20 06:52 Attending physician: Pallavi Galicia Consults: 06/22/20 06:51 Consult Physician Urgent Consulting Provider: Marquis Mora Consult Reason/Comments: new afib RVR, CHF Do you want consulting provider notified?: Yes, Notify in am Primary care physician: [facility] Course: Patient admitted for new onset atrial fibrillation. Patient heart rate is still not well-controlled patient is presently on amiodarone IV. On metoprolol. Patient blood pressures better today ration is pretty status improved patient is found to have a low EF of around 30-35% may be related to atrial fibrillation patient will undergo cardioversion today patient remains on heparin after cardiac patient patient probably will be transitioned to oral anticoagulation. Patient was started on low-dose of lisinopril, patient is off oxygen today saturations improved heart rate remains high. Blood pressure improved. 06/24/2020 Patient's heart rate is presently is around 110. Patient did undergo ZENAIDA which showed ventricular thrombus because of which patient was unable to undergo cardioversion. Cardiology cleared him for discharge patient had a E of around 30-35% the recommending Aldactone along with low-dose of FABBY inhibitor and beta sanam and patient will be discharged today. Patient was in CHF exacerbation and remission presently euvolemic at this time. PHYSICAL EXAMINATION: GENERAL: The patient is alert and oriented x3, not in any acute distress. Obese HEENT: Pupils are round and equally reacting to light. EOMI. No scleral icterus. No conjunctival pallor. Normocephalic, atraumatic. No pharyngeal erythema. No thyromegaly. CARDIOVASCULAR: S1 and S2 present. No murmurs, rubs, or gallops. Active cardiac regularly irregular rhythm PULMONARY: Mild bibasilar crackles good air entry into bilateral lung cox ABDOMEN: Soft, nontender, nondistended, normoactive bowel sounds. No palpable organomegaly. MUSCULOSKELETAL: No joint swelling or deformity. EXTREMITIES: No cyanosis, clubbing, or pedal edema. NEUROLOGICAL: Gross neurological examination did not reveal any focal deficits. SKIN: No rashes. Assessment and Plan Plan: -New onset atrial fibrillation: Patient will be will be discharged on oral amiodarone, beta sanam patient will be continued on anticoagulation. P -Congestive heart failure systolic dysfunction most probably acute systolic dysfunction with acute exacerbation his systolic dysfunction may be related to atrial fibrillation. - obesity -Possibly of sleep apnea patient was never tested for sleep apnea -Hypertension -Dyslipidemia -COPD without any acute exacerbation -Ruled out pulmonary embolism with a CT angio of the chest. Patient Condition at Discharge: Stable Plan - Discharge Summary Discharge Rx Participant: No New Discharge Prescriptions: New Spironolactone [Aldactone] 25 mg PO DAILY #30 tab Amiodarone [Cordarone] 400 mg PO BID #30 tab Apixaban [Eliquis] 5 mg PO BID #60 tab Metoprolol Tartrate [Lopressor] 50 mg PO BID #60 tab lisinopriL [Zestril] 2.5 mg PO DAILY #30 tab Continue Multivitamins, Thera [Multivitamin (formulary)] 1 tab PO DAILY Diphenox-Atrop 2.5-0.025 mg [Lomotil] 1 tab PO QID PRN PRN Reason: IBS Lovastatin [Mevacor] 40 mg PO HS Aspirin EC [Ecotrin Low Dose] 81 mg PO DAILY Zinc 50 mg PO DAILY Cholecalciferol [Vitamin D3 (25 Mcg = 1000 Iu)] 1,000 unit PO DAILY Melatonin 3 mg PO HS Discontinued Benazepril [Lotensin] 10 mg PO DAILY Discharge Medication List Diphenox-Atrop 2.5-0.025 mg [Lomotil] 1 tab PO QID PRN 02/18/15 [History] Lovastatin [Mevacor] 40 mg PO HS 02/18/15 [History] Multivitamins, Thera [Multivitamin (formulary)] 1 tab PO DAILY 02/18/15 [History] Aspirin EC [Ecotrin Low Dose] 81 mg PO DAILY 06/22/20 [History] Cholecalciferol [Vitamin D3 (25 Mcg = 1000 Iu)] 1,000 unit PO DAILY 06/22/20 [History] Melatonin 3 mg PO HS 06/22/20 [History] Zinc 50 mg PO DAILY 06/22/20 [History] Amiodarone [Cordarone] 400 mg PO BID #30 tab 06/24/20 [Rx] Apixaban [Eliquis] 5 mg PO BID #60 tab 06/24/20 [Rx] Metoprolol Tartrate [Lopressor] 50 mg PO BID #60 tab 06/24/20 [Rx] Spironolactone [Aldactone] 25 mg PO DAILY #30 tab 06/24/20 [Rx] lisinopriL [Zestril] 2.5 mg PO DAILY #30 tab 06/24/20 [Rx] Follow up Appointment(s)/Referral(s): Kenny Chin MD [STAFF PHYSICIAN] - 07/06/20 1:45 pm Brian Pelayo DO [Primary Care Provider] - 3 Days Discharge Disposition: HOME SELF-CARE
== END 2020-06-24 12:07 | disposition home or self-care (01) | DRG 308 ==
LOC: EC 04:00 → 3SCARD 06:52
PROVIDERS: ADMIT Internal Medicine; ATTEND Internal Medicine
PROC: B246ZZ4 Ultrasonography of Right and Left Heart, Transesophageal (ICD-10-PCS; principal; 2020-06-24 07:15)
DX: I48.19 Other persistent atrial fibrillation (principal); I50.23 Acute on chronic systolic (congestive) heart failure; E78.5 Hyperlipidemia, unspecified; E66.01 Morbid (severe) obesity due to excess calories; I11.0 Hypertensive heart disease with heart failure; I42.9 Cardiomyopathy, unspecified; J44.9 Chronic obstructive pulmonary disease, unspecified; I51.3 Intracardiac thrombosis, not elsewhere classified; G47.30 Sleep apnea, unspecified; I07.1 Rheumatic tricuspid insufficiency; Z20.828 Contact with and (suspected) exposure to other viral communicable diseases; Z68.36 Body mass index [BMI] 36.0-36.9, adult; Z79.82 Long term (current) use of aspirin; Z79.01 Long term (current) use of anticoagulants; Z86.73 Personal history of transient ischemic attack (TIA), and cerebral infarction without residual deficits; Z87.891 Personal history of nicotine dependence; Z82.49 Family history of ischemic heart disease and other diseases of the circulatory system; Z80.3 Family history of malignant neoplasm of breast; Z98.890 Other specified postprocedural states; Z83.6 Family history of other diseases of the respiratory system
CPT/HCPCS: 36415; 71045; 71275; 80048; 80053; 83735; 83880; 84145; 84443; 84484; 85025; 85379; 85610; 85730; 86140; 87040; 87502; 87635; 93005; 93306; 93312; 93320; 93325; 96365; 96366; 96367; 96375; 96376; 99291

== ENCOUNTER → 2020-07-03 | Outpatient (CLI) | payer MEDICARE, OTHER ==
--- NOTE | 2020-07-03 15:14 | XR ---
EXAMINATION TYPE: XR chest 2V DATE OF EXAM: 07/03/2020 COMPARISON: 06/22/2020 INDICATION: Follow-up pneumonia TECHNIQUE: Frontal and lateral views of the chest are obtained. FINDINGS: The heart size is enlarged. The pulmonary vasculature is normal. There is mild infiltrate at the left base. Findings are similar to prior exam. IMPRESSION: 1. Mild left lower lobe infiltrate and cardiomegaly. Findings appear stable from comparison
== END | disposition home or self-care (01) ==
LOC: RADXRMAIN 08:51
PROVIDERS: ATTEND Family Medicine
DX: R91.8 Other nonspecific abnormal finding of lung field (principal); J18.9 Pneumonia, unspecified organism
CPT/HCPCS: 71046

== ENCOUNTER 2020-07-10 12:39 | Emergency (ER) | payer MEDICARE, OTHER ==
[2020-07-10 12:48] VITALS: TEMP 97.8
--- NOTE | 2020-07-10 13:22 | ED ---
General Adult HPI - General Chief complaint: Shortness of Breath Stated complaint: Poss Pneumonia - sent by [facility] Time Seen by Provider: 07/10/20 12:48 Source: patient Mode of arrival: ambulatory Limitations: no limitations - History of Present Illness Initial comments: Dictation was produced using [employer]Search dictation software. please excuse any grammatical, word or spelling errors. This patient was cared for during a federal and state declared state of emergency secondary to Covid 19 Chief Complaint: 75-year-old male presents with abnormal x-ray at urgent care History of Present Illness: 75-year-old male he went to the [facility] for symptoms of congestion that have been ongoing for approximately 3 weeks. He was evaluated there and had an x-ray performed. X-ray was found to be abnormal showing infiltrates. Patient was recently admitted to the hospital for atrial fibrillation. His recent started on eliquis, and amiodarone and metoprolol. Patient states that since being discharged about 3 weeks ago he's been feeling symptoms of congestion. States his congestion is mostly to his nose. He does have some rhinorrhea. Patient also does have mild chest congestion. He went to the urgent care because he felt like he needed a trial of antibiotics. Once he got to the urgent care shot the x-ray in 7 to the emergency department for further care. She has no other symptoms at this time. Does have a mild cough however is not productive of sputum. He's been tested coronavirus on multiple occasions with negative results. The ROS documented in this emergency department record has been reviewed and confirmed by me. Those systems with pertinent positive or negative responses have been documented in the HPI. All other systems are other negative and/or noncontributory. PHYSICAL EXAM: General Impression: Alert and oriented x3, not in acute distress HEENT: Normocephalic atraumatic, extra-ocular movements intact, pupils equal and reactive to light bilaterally, mucous membranes moist. Cardiovascular: Heart regular rate and rhythm Chest: Able to complete full sentences, no retractions, no tachypnea Abdomen: abdomen soft, non-tender, non-distended, no organomegaly Musculoskeletal: Pulses present and equal in all extremities, no peripheral edema Motor: no focal deficits noted Neurological: CN II-XII grossly intact, no focal motor or sensory deficits noted Skin: Intact with no visualized rashes Psych: Normal affect and mood ED course: 75-year-old male presents to the emergency room from urgent care for concerns of pneumonia. Vital signs upon arrival shows heart rate of 118, blood pressure 91/55. Laboratory evaluation obtained. CBC unremarkable. Coag panel is negative. Metabolic panel shows no acute processes. Rapid test is negative. Chest x-ray shows bibasilar infiltrates with small right pleural effusion. Patient observed in emergency department for approximately 2 hours. Patient reevaluated at bedside at approximately 3 PM in stable medical action. Repeat vitals are improved. Patient not showing any signs of respiratory distress. Physical presentation is not consistent with pneumonia. Patient will be given pressure for antibiotics and he'll be sent home. He is agreeable for discharge. Return parameters discussed. He is advised follow-up with his primary care physician. EKG interpretation: Ventricular rate 108, A. fib, QRS 154, QTC 549. No IA prolongation, no QTC prolongation, no ST or T-wave changes noted. EKG compared to 06/22/2020 showing no changes. Overall, this EKG is unremarkable - Related Data Home Medications Medication Instructions Recorded Confirmed Diphenox-Atrop 2.5-0.025 mg 1 tab PO QID PRN 02/18/15 07/10/20 [Lomotil] Lovastatin [Mevacor] 40 mg PO HS 02/18/15 07/10/20 Multivitamins, Thera [Multivitamin 1 tab PO DAILY 02/18/15 07/10/20 (formulary)] Melatonin 3 mg PO HS 06/22/20 07/10/20 Zinc 50 mg PO DAILY 06/22/20 07/10/20 Zolpidem [Ambien] 5 mg PO HS PRN 07/10/20 07/10/20 Previous Rx's Medication Instructions Recorded Amiodarone [Cordarone] 400 mg PO BID #30 tab 06/24/20 Apixaban [Eliquis] 5 mg PO BID #60 tab 06/24/20 Metoprolol Tartrate [Lopressor] 50 mg PO BID #60 tab 06/24/20 Spironolactone [Aldactone] 25 mg PO DAILY #30 tab 06/24/20 lisinopriL [Zestril] 2.5 mg PO DAILY #30 tab 06/24/20 Amoxic-Pot Clav 875-125Mg 1 tab PO BID 10 Days #20 tab 07/10/20 [Augmentin 875-125] Allergies Allergy/AdvReac Type Severity Reaction Status Date / Time No Known Allergies Allergy Verified 07/10/20 13:24 Review of Systems ROS Statement: Those systems with pertinent positive or pertinent negative responses have been documented in the HPI. ROS Other: All systems not noted in ROS Statement are negative. Past Medical History Past Medical History: COPD, CVA/TIA, Hyperlipidemia, Hypertension, Pneumonia Additional Past Medical History / Comment(s): IBS History of Any Multi-Drug Resistant Organisms: None Reported Past Surgical History: Adenoidectomy, Ear Surgery, Tonsillectomy Past Anesthesia/Blood Transfusion Reactions: No Reported Reaction Past Psychological History: No Psychological Hx Reported Smoking Status: Former smoker Past Alcohol Use History: Occasional Past Drug Use History: None Reported - Past Family History Mother Family Medical History: Cancer, Pneumonia Additional Family Medical History / Comment(s): breast CA Father Family Medical History: Coronary Artery Disease (CAD), Myocardial Infarction ([place]) Additional Family Medical History / Comment(s): Open heart surgery in s for valve repairment, of heart attack in 1997 General Exam Limitations: no limitations Course Vital Signs 07/10/20 07/10/20 07/10/20 12:45 13:31 14:45 Temperature 97.8 F Pulse Rate 118 H 101 H Respiratory 20 18 18 Rate Blood Pressure 91/55 107/87 O2 Sat by Pulse 97 96 Oximetry Medical Decision Making - Lab Data Result diagrams: 07/10/20 12:58 07/10/20 12:58 Lab Results 07/10/20 07/10/20 07/10/20 Range/Units 12:58 12:58 12:58 WBC 7.3 (3.8-10.6) k/uL RBC 4.95 (4.30-5.90) m/uL Hgb 16.3 (13.0-17.5) gm/dL Hct 48.3 (39.0-53.0) % MCV 97.6 (80.0-100.0) fL MCH 33.0 (25.0-35.0) pg MCHC 33.8 (31.0-37.0) g/dL RDW 12.7 (11.5-15.5) % Plt Count 151 (150-450) k/uL MPV 8.5 Neutrophils % 64 % Lymphocytes % 24 % Monocytes % 7 % Eosinophils % 3 % Basophils % 1 % Neutrophils # 4.6 (1.3-7.7) k/uL Lymphocytes # 1.8 (1.0-4.8) k/uL Monocytes # 0.5 (0-1.0) k/uL Eosinophils # 0.2 (0-0.7) k/uL Basophils # 0.1 (0-0.2) k/uL PT 11.9 (9.0-12.0) sec INR 1.2 H (<1.2) APTT 28.6 (22.0-30.0) sec Sodium 136 L (137-145) mmol/L Potassium 4.6 (3.5-5.1) mmol/L Chloride 103 (98-107) mmol/L Carbon Dioxide 27 (22-30) mmol/L Anion Gap 6 mmol/L BUN 16 (9-20) mg/dL Creatinine 1.18 (0.66-1.25) mg/dL Est GFR (CKD-EPI)AfAm 70 (>60 ml/min/1.73 sqM) Est GFR (CKD-EPI)NonAf 61 (>60 ml/min/1.73 sqM) Glucose 130 H (74-99) mg/dL Plasma Lactic Acid Justin (0.7-2.0) mmol/L Calcium 8.9 (8.4-10.2) mg/dL Coronavirus (PCR) (Not Detectd) 07/10/20 07/10/20 Range/Units 12:59 12:59 WBC (3.8-10.6) k/uL RBC (4.30-5.90) m/uL Hgb (13.0-17.5) gm/dL Hct (39.0-53.0) % MCV (80.0-100.0) fL MCH (25.0-35.0) pg MCHC (31.0-37.0) g/dL RDW (11.5-15.5) % Plt Count (150-450) k/uL MPV Neutrophils % % Lymphocytes % % Monocytes % % Eosinophils % % Basophils % % Neutrophils # (1.3-7.7) k/uL Lymphocytes # (1.0-4.8) k/uL Monocytes # (0-1.0) k/uL Eosinophils # (0-0.7) k/uL Basophils # (0-0.2) k/uL PT (9.0-12.0) sec INR (<1.2) APTT (22.0-30.0) sec Sodium (137-145) mmol/L Potassium (3.5-5.1) mmol/L Chloride (98-107) mmol/L Carbon Dioxide (22-30) mmol/L Anion Gap mmol/L BUN (9-20) mg/dL Creatinine (0.66-1.25) mg/dL Est GFR (CKD-EPI)AfAm (>60 ml/min/1.73 sqM) Est GFR (CKD-EPI)NonAf (>60 ml/min/1.73 sqM) Glucose (74-99) mg/dL Plasma Lactic Acid Justin 1.3 (0.7-2.0) mmol/L Calcium (8.4-10.2) mg/dL Coronavirus (PCR) Not Detected (Not Detectd) Disposition Clinical Impression: Lung infiltrate Disposition: HOME SELF-CARE Condition: Good Instructions (If sedation given, give patient instructions): Bacterial Pneumonia (ED) Additional Instructions: Your antibiotics prescription was sent to your preferred pharmacy. Please seek immediate medical attention with any worsening symptoms including worsening dyspnea, worsening cough or fever. Prescriptions: Amoxic-Pot Clav 875-125Mg [Augmentin 875-125] 1 tab PO BID 10 Days #20 tab Is patient prescribed a controlled substance at d/c from ED?: No Referrals: Brian Pelayo DO [Primary Care Provider] - 1-2 days Time of Disposition: 15:00
[2020-07-10 13:37] VITALS: RESP 18
[2020-07-10 13:56] LABS: Basophils # (A) 0.1 k/uL (0-0.2); Basophils % (A) 1 %; Eosinophils # (A) 0.2 k/uL (0-0.7); Eosinophils % (A) 3 %; HCT 48.3 % (39.0-53.0); HGB 16.3 gm/dL (13.0-17.5); Lymphocytes # (A) 1.8 k/uL (1.0-4.8); Lymphocytes % (A) 24 %; MCHC 33.8 g/dL (31.0-37.0); MCV 97.6 fL (80.0-100.0); Mean Platelet Volume 8.5; Monocytes # (A) 0.5 k/uL (0-1.0); Monocytes % (A) 7 %; Neutrophils # (A) 4.6 k/uL (1.3-7.7); Neutrophils % (A) 64 %; Platelet Count 151 k/uL (150-450); RBC 4.95 m/uL (4.30-5.90); RDW 12.7 % (11.5-15.5); WBC 7.3 k/uL (3.8-10.6)
[2020-07-10 14:05] LABS: Calcium 8.9 mg/dL (8.4-10.2); Potassium 4.6 mmol/L (3.5-5.1)
[2020-07-10 14:11] LABS: INR 1.2 (<1.2); Partial Thromboplastin Time 28.6 sec (22.0-30.0); Prothrombin Time 11.9 sec (9.0-12.0)
--- NOTE | 2020-07-10 14:20 | XR ---
EXAMINATION TYPE: XR chest 2V DATE OF EXAM: 07/10/2020 COMPARISON: 07/03/2020 INDICATION: Pneumonia TECHNIQUE: Frontal and lateral views of the chest are obtained. FINDINGS: The heart size is moderately prominent. The pulmonary vasculature is normal. Mild infiltrate may be at the lung bases. Minimal right pleural effusion may be present. IMPRESSION: 1. Bibasilar infiltrates with small right pleural effusion
[2020-07-10 14:47] VITALS: BP 107/87
[2020-07-10 15:18] VITALS: PULSE 109
== END 2020-07-10 15:18 | disposition home or self-care (01) ==
LOC: EC 12:39
DX: R91.8 Other nonspecific abnormal finding of lung field (principal); R05 Cough; R09.89 Other specified symptoms and signs involving the circulatory and respiratory systems; I48.91 Unspecified atrial fibrillation; E78.5 Hyperlipidemia, unspecified; Z79.01 Long term (current) use of anticoagulants; Z87.891 Personal history of nicotine dependence; Z86.73 Personal history of transient ischemic attack (TIA), and cerebral infarction without residual deficits; Z20.828 Contact with and (suspected) exposure to other viral communicable diseases; Z79.899 Other long term (current) drug therapy
CPT/HCPCS: 36415; 71046; 80048; 83605; 85025; 85610; 85730; 87040; 87635; 93005; 99285

== ENCOUNTER → 2020-07-30 | Day surgery (SDC) | payer MEDICARE, OTHER ==
[2020-07-28 09:57] VITALS: BMI 34.9
[~2020-07-30] MED LIST: AMIODARONE 200 MG TAB PO SCH; APIXABAN 5 MG TAB PO SCH; ATORVASTATIN 10 MG TAB PO SCH; BENZOCAINE SPRAY 1 CAN TOPICAL ONE; LIDOCAINE 1% INJ 10MG/ML (20 ML MDV) ONE; METOPROLOL TARTRATE 50 MG TAB PO SCH; PROPOFOL 10 MG/ML 20 ML VIAL IV ONE; SODIUM CHLORIDE 0.9% 1,000 ML IV ONE; SODIUM CHLORIDE 0.9% 1,000 ML IV SCH; SPIRONOLACTONE 25 MG TAB PO SCH; ZINC SULFATE 220 MG CAP PO SCH; ZOLPIDEM 5 MG TAB PO PRN
[2020-07-30 06:36] VITALS: TEMP 97.9
[2020-07-30 08:31] VITALS: RESP 20
--- NOTE | 2020-07-30 09:30 | ECHOT ---
TRANSESOPHAGEAL ECHOCARDIOGRAM TRANSESOPHAGEAL ECHOCARDIOGRAM: INDICATION: Atrial fibrillation PROCEDURE: After explaining the procedure to the patient, its risks and complications, his blood pressure, heart rate, O2 saturation was monitored. The throat was sprayed with Cetacaine. He received sedation per Anesthesia Department. The probe was introduced in the esophagus without difficulty. Images were obtained. Following that, the probe was removed. There was no immediate complication. FINDINGS: Left atrial size is dilated. Left atrial appendage is normal. Left ventricular size is normal. There is evidence of global hypokinesis, estimated ejection fraction of 35%. The aortic valve, mitral and tricuspid valve are normal. The descending thoracic aorta appears to be normal. Contrast bubble study revealed no evidence of shunting across the interatrial septum. Doppler pulse wave and color Doppler obtained and revealed a moderate multiple jet mitral regurgitation with mild tricuspid regurgitation. There was no shunting by color Doppler study. CONCLUSION: 1. Dilated left atrium with normal appearance left atrial appendage. 2. Normal left ventricular size with severe global hypokinesis. 3. Moderate mitral with mild tricuspid regurgitation. 4. No shunting across the interatrial septum. MMODL / IJN: [id number] /
--- NOTE | 2020-07-30 09:37 | CE ---
CARDIAC ELECTROPHYSIOLOGY REPORT INDICATION: Atrial fibrillation. PROCEDURE: After explaining the procedure to the patient, its risks and complications, after performing transesophageal echocardiogram, a synchronized biphasic cardioversion using 200 joules was performed with religious of normal sinus rhythm. There was no immediate complication. MELVIN / NIGEL: [id number] /
[2020-07-30 10:03] VITALS: BP 104/65; PULSE 54
== END | disposition home or self-care (01) ==
LOC: CATHCVL 06:10
PROVIDERS: ATTEND Internal Medicine Interventional Cardiology
DX: I48.11 Longstanding persistent atrial fibrillation (principal); I08.1 Rheumatic disorders of both mitral and tricuspid valves; I42.8 Other cardiomyopathies; I10 Essential (primary) hypertension; E78.2 Mixed hyperlipidemia; J43.9 Emphysema, unspecified; K58.9 Irritable bowel syndrome, unspecified; E66.9 Obesity, unspecified; K08.409 Partial loss of teeth, unspecified cause, unspecified class; Z79.82 Long term (current) use of aspirin; Z79.01 Long term (current) use of anticoagulants; Z79.899 Other long term (current) drug therapy; Z86.73 Personal history of transient ischemic attack (TIA), and cerebral infarction without residual deficits; Z90.89 Acquired absence of other organs; Z87.891 Personal history of nicotine dependence; Z68.35 Body mass index [BMI] 35.0-35.9, adult
CPT/HCPCS: 93312; 93320; 93325; 92960; J2001; J2704

== ENCOUNTER 2021-03-04 23:30 | Emergency (ER) | payer MEDICARE, OTHER ==
[2021-03-04 23:37] VITALS: BP 114/77; PULSE 71; RESP 19; TEMP 98
[2021-03-05] MEDS ORDERED: LIDOCAINE 1%-EPI 1:100,000 20 ML VIAL SQ STA (00:11)
--- NOTE | 2021-03-05 01:07 | ED ---
ENT HPI - General Chief complaint: Dental/Oral Stated complaint: Oral pain post-extraction Time Seen by Provider: 03/05/21 00:04 Source: patient Mode of arrival: ambulatory - History of Present Illness Initial comments: 75-year-old male on eloiquis presenting to the emergency department with a chief complaint of bleeding from his tooth. Patient reports an extraction 2 days ago and a suture placed at the extraction site. States he was advised to stop taking the blood thinner for 2 days which he did. However, today he woke up with continues bleeding. States he was not able to stop it throughout the whole day. Denies any associated lightheadedness dizziness fevers or chills. Denies any facial swelling. Denies any pain near the tooth extraction site. - Related Data Home Medications Medication Instructions Recorded Confirmed Diphenox-Atrop 2.5-0.025 mg 1 tab PO QID PRN 02/18/15 07/30/20 [Lomotil] Lovastatin [Mevacor] 40 mg PO HS 02/18/15 07/30/20 Melatonin 3 mg PO HS 06/22/20 07/30/20 Zinc 50 mg PO DAILY 06/22/20 07/30/20 Zolpidem [Ambien] 5 mg PO HS PRN 07/10/20 07/30/20 Ascorbic Acid [Vitamin C] 1,000 mg PO DAILY 07/28/20 07/30/20 Cholecalciferol [Vitamin D3 (25 1,000 unit PO DAILY 07/28/20 07/30/20 Mcg = 1000 Iu)] Previous Rx's Medication Instructions Recorded Apixaban [Eliquis] 5 mg PO BID #60 tab 06/24/20 Metoprolol Tartrate [Lopressor] 50 mg PO BID #60 tab 06/24/20 Spironolactone [Aldactone] 25 mg PO DAILY #30 tab 06/24/20 lisinopriL [Zestril] 2.5 mg PO DAILY #30 tab 06/24/20 Amiodarone [Cordarone] 200 mg PO DAILY #0 07/30/20 Allergies Allergy/AdvReac Type Severity Reaction Status Date / Time No Known Allergies Allergy Verified 03/04/21 23:37 Review of Systems ROS Statement: Those systems with pertinent positive or pertinent negative responses have been documented in the HPI. ROS Other: All systems not noted in ROS Statement are negative. Past Medical History Past Medical History: Atrial Fibrillation, COPD, CVA/TIA, Hyperlipidemia, Hypertension, Pneumonia Additional Past Medical History / Comment(s): IBS History of Any Multi-Drug Resistant Organisms: None Reported Past Surgical History: Adenoidectomy, Ear Surgery, Tonsillectomy Additional Past Surgical History / Comment(s): dental surgery Past Anesthesia/Blood Transfusion Reactions: No Reported Reaction Past Psychological History: No Psychological Hx Reported Smoking Status: Former smoker Past Alcohol Use History: None Reported Past Drug Use History: None Reported - Past Family History Mother Family Medical History: Cancer, Pneumonia Additional Family Medical History / Comment(s): breast CA Father Family Medical History: Coronary Artery Disease (CAD), Myocardial Infarction ([place]) Additional Family Medical History / Comment(s): Open heart surgery in ' for valve repairment, of heart attack in 1997 General Exam Limitations: no limitations General appearance: alert, in no apparent distress Head exam: Present: atraumatic, normocephalic, normal inspection Eye exam: Present: normal appearance, PERRL, EOMI Pupils: Present: normal accommodation ENT exam: Present: normal exam, mucous membranes moist. Absent: normal oropharynx (Bleeding noted at the tooth extraction site in the lower left region .) Neck exam: Present: normal inspection, full ROM. Absent: tenderness Respiratory exam: Present: normal lung sounds bilaterally. Absent: respiratory distress, wheezes, rales, rhonchi, stridor Cardiovascular Exam: Present: regular rate, normal rhythm, normal heart sounds. Absent: systolic murmur Extremities exam: Present: normal inspection, full ROM Back exam: Present: normal inspection, full ROM Neurological exam: Present: alert, oriented X3 Psychiatric exam: Present: normal affect, normal mood Skin exam: Present: warm, dry, intact, normal color Course Vital Signs 03/04/ 23:33 Temperature 98 F Pulse Rate 71 Respiratory 19 Rate Blood Pressure 114/77 O2 Sat by Pulse 98 Oximetry Medical Decision Making - Medical Decision Making 75-year-old male presents emergency Department with chief complaint of bleeding from the tooth extraction site. On physical examination, the suture appears to be holding place. Continues bleeding noted. Small amount of lidocaine with epinephrine was injected. The bleeding resolved. Patient was advised to apply gauze and bite on whenever this occurs again. Return parameters were discussed with patient's attending ago. Advised to follow-up with a dentist. Case discussed with physician. Disposition Clinical Impression: Hemorrhage of tooth socket Disposition: HOME SELF-CARE Condition: Stable Instructions (If sedation given, give patient instructions): Toothache (ED) Additional Instructions: Please return to the Emergency Department if symptoms worsen or any other concerns. Is patient prescribed a controlled substance at d/c from ED?: No Referrals: Brian Pelayo DO [Primary Care Provider] - 1-2 days Time of Disposition: 01:06
== END 2021-03-05 01:10 | disposition home or self-care (01) ==
LOC: EC 23:30
DX: K91.840 Postprocedural hemorrhage of a digestive system organ or structure following a digestive system procedure (principal); I10 Essential (primary) hypertension; E78.5 Hyperlipidemia, unspecified; J44.9 Chronic obstructive pulmonary disease, unspecified; I48.91 Unspecified atrial fibrillation; Z79.01 Long term (current) use of anticoagulants; Z79.899 Other long term (current) drug therapy; Z80.3 Family history of malignant neoplasm of breast; Z82.49 Family history of ischemic heart disease and other diseases of the circulatory system; Z86.73 Personal history of transient ischemic attack (TIA), and cerebral infarction without residual deficits; Z87.891 Personal history of nicotine dependence
CPT/HCPCS: 99283

== ENCOUNTER → 2022-01-20 | Outpatient (CLI) | payer MEDICARE, OTHER ==
--- NOTE | 2022-01-20 17:59 | CONS ---
CONSULTATION DATE OF SERVICE: 01/20/2022 This 76-year-old gentleman has been evaluated in [facility] for possible obstructive sleep apnea-hypopnea syndrome. HISTORY OF PRESENT ILLNESS/SLEEP-WAKE EVALUATION: Patient's usual sleep schedule is from 9:30 p.m. until 5:30 or 6 a.m. Usually no significant problems with falling asleep, although he has a TV set in the bedroom. He usually sleeps on the side position. The patient denied any snoring, but recently his girlfriend told him that he has episodes of stopped breathing during sleep. The patient wakes up from sleep around 3 times with episodes of nocturia. No history of hypnagogic hallucinations, sleep paralysis or cataplexy. Usually he does not take naps. [place] Sleepiness Scale is 1. PAST MEDICAL HISTORY: Positive for TIA, arterial fibrillation, hypertension, emphysema. PAST SURGICAL HISTORY: Tonsillectomy, cyst removed from right cheek. MEDICATIONS: Lovastatin 40 mg once a day, Eliquis 5 mg once a day, metoprolol 25 mg once a day, spironolactone 25 mg once a day, lisinopril 5 mg once a day, 2.5 mg once a day, vitamins and zinc supplement. SOCIAL HISTORY: Positive for smoking up to 3 packs per day; quit in 1985. Alcohol consumption occasional. FAMILY HISTORY: TIA, cancer in his mother, breast cancer. REVIEW OF SYSTEMS: Multiple awakenings from sleep. No fevers. No double vision. No recent chest pain. No shortness of breath. No abdominal pain. No bleeding episodes. No blood in the urine. No seizure episodes. PHYSICAL EXAMINATION: GENERAL: Pleasant gentleman without distress. VITAL SIGNS: BP 116/64, HR 68, RR 18, height 6 feet 2 inches, weight 278.6, body mass index 35.6, temperature 96.6, oxygen saturation at room air 93%. HEENT: PERRLA, EOMI, evaluation of oropharynx showed tongue protrudes midline. Wide pillars. Moderately low position of soft palate; Mallampati II to III. NECK: Supple, no JVD. Thyroid is not palpable. Neck is wide; 21 inches in circumference. LUNGS: Clear to percussion and to auscultation. Good air exchange. No wheezing or rhonchi. HEART: S1, S2 regular. No murmurs, gallops, or rubs. ABDOMEN: Soft and nontender. Bowel sounds are present. No organomegaly appreciated. EXTREMITIES: No clubbing or cyanosis. T[employer] SERVICES PROFESSIONAL: Awake, alert, and oriented X3. Cranial nerves 2 to 7 intact. There is no fasciculation or atrophy. noted. No focal deficits observed. NECK is wide 30-21 inches in circumference the physical just for template. IMPRESSION: 1. Multiple awakenings from sleep with nocturia, witnessed episodes of stopped breathing during sleep, extremely small oropharyngeal air space, wide neck, 21 inches in circumference; obstructive sleep apnea-hypopnea syndrome. 2. History of atrial fibrillation. 3. Hypertension. 4. History of transient ischemic attack. 5. Obesity; body mass index 35.6. 6. History of emphysema. 7. Status post tonsillectomy. 8. Status post cyst removed from right cheek. PLAN: 1. Polysomnography for evaluation of patient's breathing during sleep. 2. CPAP/BiPAP titration if sleep study confirms obstructive sleep apnea-hypopnea syndrome. 3. Preferable position during sleep on the side. 4. No driving if patient feels any sleepiness. 5. I will see patient for follow up visit to explain results of testing and following plan. Thank you very much for referring this patient for consultation. Sincerely, Triston Long MD, PhD, FAASM Diplomat of [place] [employer] Sleep Medicine [employer] of [place] [employer] [facility] MMODL / CASEYN: [id number] /
== END | disposition home or self-care (01) ==
LOC: SLEEP 13:27
PROVIDERS: ATTEND Internal Medicine
DX: G47.33 Obstructive sleep apnea (adult) (pediatric) (principal); I10 Essential (primary) hypertension; Z86.79 Personal history of other diseases of the circulatory system; E66.9 Obesity, unspecified; Z68.35 Body mass index [BMI] 35.0-35.9, adult; Z87.09 Personal history of other diseases of the respiratory system; Z90.89 Acquired absence of other organs; Z98.890 Other specified postprocedural states
CPT/HCPCS: 99211

== ENCOUNTER 2023-10-17 14:24 | Emergency (ER) | payer MEDICARE, OTHER ==
[2023-10-17] MEDS: SODIUM CHLORIDE 0.9% 1,000 ML IV ONE (15:10)
--- NOTE | 2023-10-17 15:14 | ED ---
General Adult HPI - General Chief complaint: Urogenital Stated complaint: Urine Issues Time Seen by Provider: 10/17/23 14:35 Source: patient, RN notes reviewed Mode of arrival: ambulatory Limitations: no limitations - History of Present Illness Initial comments: 78-year-old male presents emergency department with chief complaint of urinary retention. Patient states has been having issues the last couple days he was seen by PCP was placed on antibiotics for UTI states he is also given medication to take at bedtime to help him urinate. Patient states he is taking [id number] prostate medication and additional to this. Patient denies any fevers or chills patient states he generally has felt weak but denies chest pain shortness of breath headache or dizziness. - Related Data Home Medications Medication Instructions Recorded Confirmed Diphenox-Atrop 2.5-0.025 mg 1 tab PO QID PRN 02/18/15 07/30/20 [Lomotil] Lovastatin [Mevacor] 40 mg PO HS 02/18/15 07/30/20 Melatonin 3 mg PO HS 06/22/20 07/30/20 Zinc 50 mg PO DAILY 06/22/20 07/30/20 Zolpidem [Ambien] 5 mg PO HS PRN 07/10/20 07/30/20 Ascorbic Acid [Vitamin C] 1,000 mg PO DAILY 07/28/20 07/30/20 Cholecalciferol [Vitamin D3 (25 1,000 unit PO DAILY 07/28/20 07/30/20 Mcg = 1000 Iu)] Previous Rx's Medication Instructions Recorded Apixaban [Eliquis] 5 mg PO BID #60 tab 06/24/20 Metoprolol Tartrate [Lopressor] 50 mg PO BID #60 tab 06/24/20 Spironolactone [Aldactone] 25 mg PO DAILY #30 tab 06/24/20 lisinopriL [Zestril] 2.5 mg PO DAILY #30 tab 06/24/20 Amiodarone [Cordarone] 200 mg PO DAILY #0 07/30/20 Allergies Allergy/AdvReac Type Severity Reaction Status Date / Time No Known Allergies Allergy Verified 10/17/23 14:26 Review of Systems ROS Statement: Those systems with pertinent positive or pertinent negative responses have been documented in the HPI. ROS Other: All systems not noted in ROS Statement are negative. Past Medical History Past Medical History: Atrial Fibrillation, COPD, CVA/TIA, Hyperlipidemia, Hypertension, Pneumonia Additional Past Medical History / Comment(s): IBS History of Any Multi-Drug Resistant Organisms: None Reported Past Surgical History: Adenoidectomy, Ear Surgery, Tonsillectomy Additional Past Surgical History / Comment(s): dental surgery Past Anesthesia/Blood Transfusion Reactions: No Reported Reaction Past Psychological History: No Psychological Hx Reported Smoking Status: Former smoker Past Alcohol Use History: None Reported Past Drug Use History: None Reported - Past Family History Mother Family Medical History: Cancer, Pneumonia Additional Family Medical History / Comment(s): breast CA Father Family Medical History: Coronary Artery Disease (CAD), Myocardial Infarction (CO) Additional Family Medical History / Comment(s): Open heart surgery in for valve repairment, of heart attack in 1997 General Exam Limitations: no limitations General appearance: alert, in no apparent distress Head exam: Present: atraumatic, normocephalic, normal inspection Eye exam: Present: normal appearance, PERRL, EOMI. Absent: scleral icterus, conjunctival injection, periorbital swelling ENT exam: Present: normal exam, mucous membranes moist Neck exam: Present: normal inspection, full ROM. Absent: tenderness, meningismus, lymphadenopathy Respiratory exam: Present: normal lung sounds bilaterally. Absent: respiratory distress, wheezes, rales, rhonchi, stridor Cardiovascular Exam: Present: regular rate, normal rhythm, normal heart sounds. Absent: systolic murmur, diastolic murmur, rubs, gallop, clicks GI/Abdominal exam: Present: soft, distended, tenderness, normal bowel sounds. Absent: guarding, rebound, rigid Neurological exam: Present: alert, oriented X3 Course Vital Signs 10/17/23 10/17/23 10/17/23 14:25 14:58 15:23 Temperature 97.9 F Pulse Rate 95 104 H 85 Respiratory 16 20 16 Rate Blood Pressure 81/65 89/67 111/68 O2 Sat by Pulse 97 98 98 Oximetry Medical Decision Making - Medical Decision Making Was pt. sent in by a medical professional or institution (, PA, AUTOMOTIVE WARRANTY ADMINISTRATOR, urgent care, hospital, or alf...) When possible be specific @ -PCP Did you speak to anyone other than the patient for history (EMS, parent, family, police, friend...)? What history was obtained from this source @ -No Did you review nursing and triage notes (agree or disagree)? Why? @ -I reviewed and agree with nursing and triage notes Were old charts reviewed (outside hosp., previous admission, EMS record, old EKG, old radiological studies, urgent care reports/EKG's, alf records)? Report findings @ -No old charts were reviewed Differential Diagnosis (chest pain, altered mental status, abdominal pain women, abdominal pain men, vaginal bleeding, weakness, fever, dyspnea, syncope, headache, dizziness, GI bleed, back pain, seizure, CVA, palpatations, mental health, musculoskeletal)? @ -[Urinary retention, UTI EKG interpreted by me (3pts min.). @ -None on X-rays interpreted by me (1pt min.). @ -None done CT interpreted by me (1pt min.). @ -None done U/S interpreted by me (1pt. min.). @ -None done What testing was considered but not performed or refused? (CT, X-rays, U/S, labs)? Why? @ -None What meds were considered but not given or refused? Why? @ -None Did you discuss the management of the patient with other professionals (professionals i.e. , PA, AUTOMOTIVE WARRANTY ADMINISTRATOR, lab, RT, psych nurse, aids social worker, plumbing contractor, teacher, correctional officer captain, nurse case management)? Give summary @ -No Was smoking cessation discussed for >3mins.? @ -No Was critical care preformed (if so, how long)? @ -No Were there social determinants of health that impacted care today? How? (Homelessness, low income, unemployed, alcoholism, drug addiction, transportation, low edu. Level, literacy, decrease access to med. care, fpc, rehab)? @ -No Was there de-escalation of care discussed even if they declined (Discuss DNR or withdrawal of care, Hospice)? DNR status @ -No What co-morbidities impacted this encounter? (DM, HTN, Smoking, COPD, CAD, Cancer, CVA, ARF, Chemo, Hep., AIDS, mental health diagnosis, sleep apnea, morbid obesity)? @ -None Was patient admitted / discharged? Hospital course, mention meds given and route, prescriptions, significant lab abnormalities, going to OR and other pertinent info. @ -[Discharge patient was sent over for urinary retention. Patient did have Leung catheter placed by RN with no complications. Patient had over 1000 mL urine in the bladder. Patient initial blood pressure was 80 over 50s blood work including CBC comp and lactic were ordered patient has lactic acid greater than 4, mild leukocytosis blood pressure has improved after IV fluids and is afebrile. I did recommend the patient be admitted for IV antibiotics for UTI severe sepsis patient states that he is animals at home and he cannot stay in the hospital blood cultures were drawn, Rocephin 2 g were given patient does have oral antibiotics that was prescribed by his PCP he is strongly advised to return the emergency department for admission and further treatment. Undiagnosed new problem with uncertain prognosis? @ -No Drug Therapy requiring intensive monitoring for toxicity (Heparin, Nitro, Insulin, Cardizem)? @ -No Were any procedures done? @ -No Diagnosis/symptom? @ -[UTI, sepsis Acute, or Chronic, or Acute on Chronic? @ -Acute Uncomplicated (without systemic symptoms) or Complicated (systemic symptoms)? @ -Complicated Side effects of treatment? @ -No Exacerbation, Progression, or Severe Exacerbation? @ -No Poses a threat to life or bodily function? How? (Chest pain, USA, CO, pneumonia, PE, COPD, DKA, ARF, appy, cholecystitis, CVA, Diverticulitis, Homicidal, Suicidal, threat to staff... and all critical care pts) @ -[Yes patient has sepsis criteria - Lab Data Result diagrams: 10/17/23 15:09 10/17/23 15:09 Lab Results 10/17/23 10/17/23 10/17/23 Range/Units 15:09 15:09 15:09 WBC 12.4 H (3.8-10.6) k/uL RBC 3.92 L (4.30-5.90) m/uL Hgb 12.7 L (13.0-17.5) gm/dL Hct 36.6 L (39.0-53.0) % MCV 93.4 (80.0-100.0) fL MCH 32.5 (25.0-35.0) pg MCHC 34.8 (31.0-37.0) g/dL RDW 12.9 (11.5-15.5) % Plt Count 203 (150-450) k/uL MPV 8.2 Neutrophils % 79 % Lymphocytes % 13 % Monocytes % 6 % Eosinophils % 1 % Basophils % 0 % Neutrophils # 9.8 H (1.3-7.7) k/uL Lymphocytes # 1.6 (1.0-4.8) k/uL Monocytes # 0.7 (0-1.0) k/uL Eosinophils # 0.1 (0-0.7) k/uL Basophils # 0.0 (0-0.2) k/uL Sodium 134 L (137-145) mmol/L Potassium 3.8 (3.5-5.1) mmol/L Chloride 99 (98-107) mmol/L Carbon Dioxide 25 (22-30) mmol/L Anion Gap 10 mmol/L BUN 28 H (9-20) mg/dL Creatinine 1.07 (0.66-1.25) mg/dL Est GFR (CKD-EPI)AfAm 78 (>60 ml/min/1.73 sqM) Est GFR (CKD-EPI)NonAf 68 (>60 ml/min/1.73 sqM) Glucose 127 H (74-99) mg/dL Plasma Lactic Acid Justin (0.7-2.0) mmol/L Calcium 8.6 (8.4-10.2) mg/dL Total Bilirubin 0.7 (0.2-1.3) mg/dL AST 61 H (17-59) U/L ALT 46 (4-49) U/L Alkaline Phosphatase 80 (38-126) U/L Total Protein 6.5 (6.3-8.2) g/dL Albumin 3.0 L (3.5-5.0) g/dL Urine Color Yellow Urine Appearance Cloudy (Clear) Urine pH 5.5 (5.0-8.0) Ur Specific [place] 1.021 (1.001-1.035) Urine Protein Trace H (Negative) Urine Glucose (UA) Negative (Negative) Urine Ketones Negative (Negative) Urine Blood Negative (Negative) Urine Nitrite Positive (Negative) Urine Bilirubin Negative (Negative) Urine Urobilinogen <2.0 (<2.0) mg/dL Ur Leukocyte Esterase Large H (Negative) Urine RBC 1 (0-5) /hpf Urine WBC >182 H (0-5) /hpf Ur Squamous Epith Cells <1 (0-4) /hpf Urine Bacteria Many H (None) /hpf Hyaline Casts 15 H (0-2) /lpf Urine Mucus Moderate H (None) /hpf 10/17/23 Range/Units 15:09 WBC (3.8-10.6) k/uL RBC (4.30-5.90) m/uL Hgb (13.0-17.5) gm/dL Hct (39.0-53.0) % MCV (80.0-100.0) fL MCH (25.0-35.0) pg MCHC (31.0-37.0) g/dL RDW (11.5-15.5) % Plt Count (150-450) k/uL MPV Neutrophils % % Lymphocytes % % Monocytes % % Eosinophils % % Basophils % % Neutrophils # (1.3-7.7) k/uL Lymphocytes # (1.0-4.8) k/uL Monocytes # (0-1.0) k/uL Eosinophils # (0-0.7) k/uL Basophils # (0-0.2) k/uL Sodium (137-145) mmol/L Potassium (3.5-5.1) mmol/L Chloride (98-107) mmol/L Carbon Dioxide (22-30) mmol/L Anion Gap mmol/L BUN (9-20) mg/dL Creatinine (0.66-1.25) mg/dL Est GFR (CKD-EPI)AfAm (>60 ml/min/1.73 sqM) Est GFR (CKD-EPI)NonAf (>60 ml/min/1.73 sqM) Glucose (74-99) mg/dL Plasma Lactic Acid Justin 4.3 H* (0.7-2.0) mmol/L Calcium (8.4-10.2) mg/dL Total Bilirubin (0.2-1.3) mg/dL AST (17-59) U/L ALT (4-49) U/L Alkaline Phosphatase (38-126) U/L Total Protein (6.3-8.2) g/dL Albumin (3.5-5.0) g/dL Urine Color Urine Appearance (Clear) Urine pH (5.0-8.0) Ur Specific [place] (1.001-1.035) Urine Protein (Negative) Urine Glucose (UA) (Negative) Urine Ketones (Negative) Urine Blood (Negative) Urine Nitrite (Negative) Urine Bilirubin (Negative) Urine Urobilinogen (<2.0) mg/dL Ur Leukocyte Esterase (Negative) Urine RBC (0-5) /hpf Urine WBC (0-5) /hpf Ur Squamous Epith Cells (0-4) /hpf Urine Bacteria (None) /hpf Hyaline Casts (0-2) /lpf Urine Mucus (None) /hpf Disposition Clinical Impression: UTI (urinary tract infection), Urinary retention Disposition: HOME SELF-CARE Condition: Stable Instructions (If sedation given, give patient instructions): Urinary Tract Infection in Men (ED) Additional Instructions: Please return to the Emergency Department if symptoms worsen or any other concerns. Is patient prescribed a controlled substance at d/c from ED?: No Referrals: Brian Pelayo DO [Primary Care Provider] - 1-2 days STEVEN SALAZAR MD [REFERRING] - 1-2 days Time of Disposition: 16:06
[2023-10-17 15:27] LABS: Basophils % (A) 0 %; Eosinophils # (A) 0.1 k/uL (0-0.7); Eosinophils % (A) 1 %; HCT 36.6 % (39.0-53.0); HGB 12.7 gm/dL (13.0-17.5); Lymphocytes # (A) 1.6 k/uL (1.0-4.8); Lymphocytes % (A) 13 %; MCH 32.5 pg (25.0-35.0); MCHC 34.8 g/dL (31.0-37.0); MCV 93.4 fL (80.0-100.0); Mean Platelet Volume 8.2; Monocytes # (A) 0.7 k/uL (0-1.0); Monocytes % (A) 6 %; Neutrophils # (A) 9.8 k/uL (1.3-7.7); Neutrophils % (A) 79 %; Platelet Count 203 k/uL (150-450); RBC 3.92 m/uL (4.30-5.90); RDW 12.9 % (11.5-15.5); WBC 12.4 k/uL (3.8-10.6)
[2023-10-17 15:33] VITALS: TEMP 97.9
[2023-10-17 15:57] LABS: Appearance,Urine Cloudy (Clear); Bacteria,Urine Many /hpf; Bilirubin,Urine Negative (Negative); Blood,Urine Negative (Negative); Color,Urine Yellow; Glucose,Urine (UA) Negative (Negative); Hyaline Casts,Urine 15 /lpf (0-2); Ketones,Urine Negative (Negative); Leukocyte Esterase,Urine Large (Negative); Mucus,Urine Moderate /hpf; Nitrite,Urine Positive (Negative); PH, Urine 5.5 (5.0-8.0); Protein,Urine Trace (Negative); RBC,Urine 1 /hpf (0-5); Specific Gravity,Urine 1.021 (1.001-1.035); Squamous Epithelial Cell,Urine <1 /hpf (0-4); Urobilinogen,Urine <2.0 mg/dL (<2.0); WBC,Urine >182 /hpf (0-5)
[2023-10-17 16:02] LABS: ALT 46 U/L (4-49); AST 61 U/L (17-59); African American GFR (CKD) 78 (>60 ml/min/1.73 sqM); Alkaline Phosphatase 80 U/L (38-126); Anion Gap 10 mmol/L; Blood Urea Nitrogen 28 mg/dL (9-20); Calcium 8.6 mg/dL (8.4-10.2); Carbon Dioxide 25 mmol/L (22-30); Chloride 99 mmol/L (98-107); Glucose 127 mg/dL (74-99); Non-African American GFR(CKD) 68 (>60 ml/min/1.73 sqM); Potassium 3.8 mmol/L (3.5-5.1); Sodium 134 mmol/L (137-145); Total Bilirubin 0.7 mg/dL (0.2-1.3); Total Protein 6.5 g/dL (6.3-8.2)
[2023-10-17 17:12] VITALS: BP 110/68; PULSE 78; RESP 18
== END 2023-10-17 17:55 | disposition home or self-care (01) ==
LOC: EC 14:24
DX: N39.0 Urinary tract infection, site not specified (principal); B97.0 Adenovirus as the cause of diseases classified elsewhere; I10 Essential (primary) hypertension; I48.91 Unspecified atrial fibrillation; J44.9 Chronic obstructive pulmonary disease, unspecified; E78.5 Hyperlipidemia, unspecified; Z79.899 Other long term (current) drug therapy; Z87.891 Personal history of nicotine dependence; Z86.73 Personal history of transient ischemic attack (TIA), and cerebral infarction without residual deficits
CPT/HCPCS: 36415; 80053; 83605; 85025; 81001; 87086; 87077; 87186; 99283; 96365; 96361; 51702; J0696

== ENCOUNTER 2023-10-20 13:40 | Observation (INO) | payer MEDICARE, OTHER ==
--- NOTE | 2023-10-20 14:12 | ED ---
Weakness HPI - General Chief complaint: Weakness Stated complaint: Abn Labs Time Seen by Provider: 10/20/23 13:49 Source: patient, RN notes reviewed Mode of arrival: ambulatory Limitations: no limitations - History of Present Illness Initial comments: This is a 78-year-old male who presents to the emergency department for generalized weakness. Patient was evaluated here on 10/16 for generalized weakness and urinary retention. He had been on antibiotics for a UTI at that point. He ended up having a Leung catheter placed due to the retention. Patient was hypotensive then and responded to fluids. He had an elevated lactic acid and admission was strongly advised due to sepsis with UTI. However, patient declined as he had animals at home and had no one to take care of them. States that since going home, he has started to feel much worse in terms of the weakness, prompting him to return to the emergency department. States that he found someone to care for his animals and is now willing to stay. Denies any fever/chills. States that the Leung catheter is still functioning. Also denies any abdominal pain, chest pain, or shortness of breath. He is still taking the Bactrim as prescribed. Complaint: generalized weakness - Related Data Home Medications Medication Instructions Recorded Confirmed RX: Diphenox-Atrop 2.5-0.025 mg 1 tab PO QID PRN 02/18/15 10/20/23 [Lomotil] RX: Lovastatin [Mevacor] 40 mg PO HS 02/18/15 10/20/23 RX: Zinc 50 mg PO HS 06/22/20 10/20/23 RX: Ascorbic Acid [Vitamin C] 1,000 mg PO HS 07/28/20 10/20/23 RX: Cholecalciferol [Vitamin D3 1,000 unit PO HS 07/28/20 10/20/23 (25 Mcg = 1000 Iu)] Alfuzosin HCl [Alfuzosin HCl ER] 10 mg PO HS 10/20/23 10/20/23 Metoprolol Tartrate [Lopressor] 25 mg PO BID 10/20/23 10/20/23 Sulfamethox-Tmp 800-160Mg [Bactrim 1 tab PO BID 10/20/23 10/20/23 DS 800-160 mg] lisinopriL [Zestril] 5 mg PO DAILY 10/20/23 10/20/23 Previous Rx's Medication Instructions Recorded RX: Apixaban [Eliquis] 5 mg PO BID #60 tab 06/24/20 RX: Spironolactone [Aldactone] 25 mg PO DAILY #30 tab 06/24/20 Allergies Allergy/AdvReac Type Severity Reaction Status Date / Time No Known Allergies Allergy Verified 10/20/23 15:09 Review of Systems ROS Statement: Those systems with pertinent positive or pertinent negative responses have been documented in the HPI. ROS Other: All systems not noted in ROS Statement are negative. Past Medical History Past Medical History: Atrial Fibrillation, COPD, CVA/TIA, Hyperlipidemia, Hypertension, Pneumonia Additional Past Medical History / Comment(s): IBS History of Any Multi-Drug Resistant Organisms: None Reported Past Surgical History: Adenoidectomy, Ear Surgery, Tonsillectomy Additional Past Surgical History / Comment(s): dental surgery Past Anesthesia/Blood Transfusion Reactions: No Reported Reaction Past Psychological History: No Psychological Hx Reported Smoking Status: Former smoker Past Alcohol Use History: None Reported Past Drug Use History: None Reported - Past Family History Mother Family Medical History: Cancer, Pneumonia Additional Family Medical History / Comment(s): breast CA Father Family Medical History: Coronary Artery Disease (CAD), Myocardial Infarction ([place]) Additional Family Medical History / Comment(s): Open heart surgery in for valve repairment, of heart attack in 1997 General Exam Limitations: no limitations General appearance: alert, in no apparent distress Head exam: Present: atraumatic, normocephalic, normal inspection Respiratory exam: Present: normal lung sounds bilaterally. Absent: respiratory distress, wheezes, rales, rhonchi, stridor Cardiovascular Exam: Present: regular rate, normal rhythm, normal heart sounds. Absent: systolic murmur, diastolic murmur, rubs, gallop, clicks GI/Abdominal exam: Present: soft, normal bowel sounds. Absent: distended, tenderness, guarding, rebound, rigid Neurological exam: Present: alert, oriented X3, CN II-XII intact Psychiatric exam: Present: normal affect, normal mood Skin exam: Present: warm, dry, intact, normal color. Absent: rash Course Vital Signs 10/20/23 10/20/23 10/20/23 13:41 16:12 18:00 Temperature 97.4 F L Pulse Rate 77 55 L 63 Respiratory 18 16 18 Rate Blood Pressure 85/56 102/60 111/60 O2 Sat by Pulse 99 98 95 Oximetry Medical Decision Making - Medical Decision Making This is a 78 year old male who presents to the emergency department for generalized weakness. Was pt. sent in by a medical professional or institution? @ -No Did you speak to anyone other than the patient for history? @ -No Did you review nursing and triage notes? @ -Yes, and I agree, it is accurate with regards to the patient's symptoms. Were old charts reviewed? @ -Urine culture from 10/17/23 which was positive for e. coli and found to be sensitive to multiple antibiotics. Differential Diagnosis? @ -Differential Weakness: Hypoglycemia, shock, sepsis, hyponatremia, anemia, infection, [place], ETOH, adverse medicine reaction, overdose, stroke, this is not meant to be an all-inclusive list. EKG interpreted by me (3pts min.)? @ -EKG interpreted by me demonstrating the following: Atrial fibrillation. Justin tricular rate 75 bpm, QRS duration 148 ms, QTc 475 ms. X-rays interpreted by me (1pt min.)? @ -Not obtained CT interpreted by me (1pt min.)? @ -Not obtained U/S interpreted by me (1pt. min.)? @ -Not obtained What testing was considered but not performed? (CT, X-rays, U/S, labs)? Why? @ -None What meds were considered but not given? Why? @ -None Did you discuss the management of the patient with other professionals? @ -Yes, Dr. Sosa, who accepts the patient for admission. Did you reconcile home meds? @ -Yes Was smoking cessation discussed for >3mins.? @ -No Was critical care preformed (if so, how long)? @ -No Were there social determinants of health that impacted care today? How? (Homelessness, low income, unemployed, alcoholism, drug addiction, transportation, low edu. Level, literacy, decrease access to med. care, halfway, rehab)? @ -No Was there de-escalation of care discussed even if they declined? (Discuss DNR or withdrawal of care, Hospice)? @ -No What co-morbidities impacted this encounter? (DM, HTN, Smoking, COPD, CAD, Cancer, CVA, Hep., AIDS, mental health diagnosis, sleep apnea, morbid obesity)? @ -A-fib, HTN, HLD, COPD Was patient admitted / discharged? @ -Admitted. Patient was hypotensive on arrival with a BP of 85/56. This was the case when he was here 3 days ago. 1L bolus of IV fluids administered for the hypotension. Urine culture from 10/16 reviewed and positive for E. coli. Urine from today also sent for culture and blood cultures were obtained. 2g of Ceftriaxone administered, which the report was shown to be sensitive to. Lab work demonstrates an elevated lactic acid of 3.3. There is no leukocytosis. While his lab work is improved when compared with 3 days ago, patient did continue to be hypotensive and physically, he feels much worse. Patient subsequently admitted for UTI and weakness. Undiagnosed new problem with uncertain prognosis? @ -None Drug Therapy requiring intensive monitoring for toxicity (Heparin, Nitro, Insulin, Cardizem)? @ -None Were any procedures done? @ -None Diagnosis/symptom? @ -UTI, weakness, hypotension Acute, or Chronic, or Acute on Chronic? @ -Acute Uncomplicated (without systemic symptoms) or Complicated (systemic symptoms)? @ -Complicated Side effects of treatment? @ -None Exacerbation, Progression, or Severe Exacerbation] @ -Not applicable Poses a threat to life or bodily function? @ -Yes This case was discussed in detail with the attending ED physician, Dr. Steven. Presentation, findings, and treatment plan discussed in detail as well. - Lab Data Result diagrams: 10/20/23 14:27 10/20/23 14:27 Lab Results 10/20/23 10/20/23 10/20/23 Range/Units 14:27 14:27 14:27 WBC 10.5 (3.8-10.6) k/uL RBC 4.12 L (4.30-5.90) m/uL Hgb 13.0 (13.0-17.5) gm/dL Hct 39.0 (39.0-53.0) % MCV 94.6 (80.0-100.0) fL MCH 31.6 (25.0-35.0) pg MCHC 33.4 (31.0-37.0) g/dL RDW 12.8 (11.5-15.5) % Plt Count 240 (150-450) k/uL MPV 8.1 Neutrophils % 76 % Lymphocytes % 16 % Monocytes % 4 % Eosinophils % 3 % Basophils % 0 % Neutrophils # 7.9 H (1.3-7.7) k/uL Lymphocytes # 1.7 (1.0-4.8) k/uL Monocytes # 0.4 (0-1.0) k/uL Eosinophils # 0.3 (0-0.7) k/uL Basophils # 0.0 (0-0.2) k/uL PT 11.0 (10.0-12.5) sec INR 1.0 (<1.2) APTT 29.1 (22.0-30.0) sec Sodium 133 L (137-145) mmol/L Potassium 4.2 (3.5-5.1) mmol/L Chloride 101 (98-107) mmol/L Carbon Dioxide 24 (22-30) mmol/L Anion Gap 8 mmol/L BUN 14 (9-20) mg/dL Creatinine 0.77 (0.66-1.25) mg/dL Est GFR (CKD-EPI)AfAm >90 (>60 ml/min/1.73 sqM) Est GFR (CKD-EPI)NonAf 88 (>60 ml/min/1.73 sqM) Glucose 128 H (74-99) mg/dL Lactic Ac Sepsis Rflx Plasma Lactic Acid Justin (0.7-2.0) mmol/L Calcium 8.1 L (8.4-10.2) mg/dL Phosphorus 2.8 (2.5-4.5) mg/dL Magnesium 2.1 (1.6-2.3) mg/dL Total Bilirubin 0.6 (0.2-1.3) mg/dL AST 67 H (17-59) U/L ALT 51 H (4-49) U/L Alkaline Phosphatase 77 (38-126) U/L Troponin I (0.000-0.034) ng/mL Total Protein 6.4 (6.3-8.2) g/dL Albumin 2.8 L (3.5-5.0) g/dL Urine Color Urine Appearance (Clear) Urine pH (5.0-8.0) Ur Specific [place] (1.001-1.035) Urine Protein (Negative) Urine Glucose (UA) (Negative) Urine Ketones (Negative) Urine Blood (Negative) Urine Nitrite (Negative) Urine Bilirubin (Negative) Urine Urobilinogen (<2.0) mg/dL Ur Leukocyte Esterase (Negative) Urine RBC (0-5) /hpf Urine WBC (0-5) /hpf Urine Bacteria (None) /hpf Urine Mucus (None) /hpf 10/20/23 10/20/23 10/20/23 Range/Units 14:27 14:27 15:35 WBC (3.8-10.6) k/uL RBC (4.30-5.90) m/uL Hgb (13.0-17.5) gm/dL Hct (39.0-53.0) % MCV (80.0-100.0) fL MCH (25.0-35.0) pg MCHC (31.0-37.0) g/dL RDW (11.5-15.5) % Plt Count (150-450) k/uL MPV Neutrophils % % Lymphocytes % % Monocytes % % Eosinophils % % Basophils % % Neutrophils # (1.3-7.7) k/uL Lymphocytes # (1.0-4.8) k/uL Monocytes # (0-1.0) k/uL Eosinophils # (0-0.7) k/uL Basophils # (0-0.2) k/uL PT (10.0-12.5) sec INR (<1.2) APTT (22.0-30.0) sec Sodium (137-145) mmol/L Potassium (3.5-5.1) mmol/L Chloride (98-107) mmol/L Carbon Dioxide (22-30) mmol/L Anion Gap mmol/L BUN (9-20) mg/dL Creatinine (0.66-1.25) mg/dL Est GFR (CKD-EPI)AfAm (>60 ml/min/1.73 sqM) Est GFR (CKD-EPI)NonAf (>60 ml/min/1.73 sqM) Glucose (74-99) mg/dL Lactic Ac Sepsis Rflx Y Plasma Lactic Acid Justin 3.3 H* (0.7-2.0) mmol/L Calcium (8.4-10.2) mg/dL Phosphorus (2.5-4.5) mg/dL Magnesium (1.6-2.3) mg/dL Total Bilirubin (0.2-1.3) mg/dL AST (17-59) U/L ALT (4-49) U/L Alkaline Phosphatase (38-126) U/L Troponin I <0.012 (0.000-0.034) ng/mL Total Protein (6.3-8.2) g/dL Albumin (3.5-5.0) g/dL Urine Color Urine Appearance (Clear) Urine pH (5.0-8.0) Ur Specific [place] (1.001-1.035) Urine Protein (Negative) Urine Glucose (UA) (Negative) Urine Ketones (Negative) Urine Blood (Negative) Urine Nitrite (Negative) Urine Bilirubin (Negative) Urine Urobilinogen (<2.0) mg/dL Ur Leukocyte Esterase (Negative) Urine RBC (0-5) /hpf Urine WBC (0-5) /hpf Urine Bacteria (None) /hpf Urine Mucus (None) /hpf 10/20/23 Range/Units 15:39 WBC (3.8-10.6) k/uL RBC (4.30-5.90) m/uL Hgb (13.0-17.5) gm/dL Hct (39.0-53.0) % MCV (80.0-100.0) fL MCH (25.0-35.0) pg MCHC (31.0-37.0) g/dL RDW (11.5-15.5) % Plt Count (150-450) k/uL MPV Neutrophils % % Lymphocytes % % Monocytes % % Eosinophils % % Basophils % % Neutrophils # (1.3-7.7) k/uL Lymphocytes # (1.0-4.8) k/uL Monocytes # (0-1.0) k/uL Eosinophils # (0-0.7) k/uL Basophils # (0-0.2) k/uL PT (10.0-12.5) sec INR (<1.2) APTT (22.0-30.0) sec Sodium (137-145) mmol/L Potassium (3.5-5.1) mmol/L Chloride (98-107) mmol/L Carbon Dioxide (22-30) mmol/L Anion Gap mmol/L BUN (9-20) mg/dL Creatinine (0.66-1.25) mg/dL Est GFR (CKD-EPI)AfAm (>60 ml/min/1.73 sqM) Est GFR (CKD-EPI)NonAf (>60 ml/min/1.73 sqM) Glucose (74-99) mg/dL Lactic Ac Sepsis Rflx Plasma Lactic Acid Justin (0.7-2.0) mmol/L Calcium (8.4-10.2) mg/dL Phosphorus (2.5-4.5) mg/dL Magnesium (1.6-2.3) mg/dL Total Bilirubin (0.2-1.3) mg/dL AST (17-59) U/L ALT (4-49) U/L Alkaline Phosphatase (38-126) U/L Troponin I (0.000-0.034) ng/mL Total Protein (6.3-8.2) g/dL Albumin (3.5-5.0) g/dL Urine Color Yellow Urine Appearance Cloudy (Clear) Urine pH 6.0 (5.0-8.0) Ur Specific [place] 1.022 (1.001-1.035) Urine Protein 2+ H (Negative) Urine Glucose (UA) Negative (Negative) Urine Ketones Negative (Negative) Urine Blood Moderate H (Negative) Urine Nitrite Negative (Negative) Urine Bilirubin Negative (Negative) Urine Urobilinogen 6.0 (<2.0) mg/dL Ur Leukocyte Esterase Moderate H (Negative) Urine RBC 80 H (0-5) /hpf Urine WBC 8 H (0-5) /hpf Urine Bacteria Rare H (None) /hpf Urine Mucus Moderate H (None) /hpf Disposition Clinical Impression: UTI (urinary tract infection), Weakness, Hypotension Disposition: ADMITTED IP TO THIS [facility] Time of Disposition: 16:49
[2023-10-20] MEDS: SODIUM CHLORIDE 0.9% 1,000 ML IV STA (14:35)
[2023-10-20 14:39] LABS: Basophils % (A) 0 %; Eosinophils # (A) 0.3 k/uL (0-0.7); Eosinophils % (A) 3 %; Lymphocytes # (A) 1.7 k/uL (1.0-4.8); Lymphocytes % (A) 16 %; MCH 31.6 pg (25.0-35.0); MCHC 33.4 g/dL (31.0-37.0); MCV 94.6 fL (80.0-100.0); Mean Platelet Volume 8.1; Monocytes # (A) 0.4 k/uL (0-1.0); Monocytes % (A) 4 %; Neutrophils # (A) 7.9 k/uL (1.3-7.7); Neutrophils % (A) 76 %; Platelet Count 240 k/uL (150-450); RBC 4.12 m/uL (4.30-5.90); RDW 12.8 % (11.5-15.5); WBC 10.5 k/uL (3.8-10.6)
[2023-10-20 14:47] LABS: Partial Thromboplastin Time 29.1 sec (22.0-30.0)
[2023-10-20 14:55] LABS: ALT 51 U/L (4-49); AST 67 U/L (17-59); African American GFR (CKD) >90 (>60 ml/min/1.73 sqM); Albumin 2.8 g/dL (3.5-5.0); Alkaline Phosphatase 77 U/L (38-126); Anion Gap 8 mmol/L; Blood Urea Nitrogen 14 mg/dL (9-20); Calcium 8.1 mg/dL (8.4-10.2); Carbon Dioxide 24 mmol/L (22-30); Chloride 101 mmol/L (98-107); Glucose 128 mg/dL (74-99); Magnesium 2.1 mg/dL (1.6-2.3); Non-African American GFR(CKD) 88 (>60 ml/min/1.73 sqM); Phosphorus 2.8 mg/dL (2.5-4.5); Sodium 133 mmol/L (137-145); Total Bilirubin 0.6 mg/dL (0.2-1.3); Total Protein 6.4 g/dL (6.3-8.2)
[2023-10-20] MEDS: cefTRIAXone IN SWFI 1,000 MG/10 ML SYRINGE IVP STA (15:09)
[2023-10-20 15:11] LABS: Potassium 4.2 mmol/L (3.5-5.1)
[2023-10-20] MEDS: SODIUM CHLORIDE 0.9% 500 ML 500 ML IV STA (16:33)
[2023-10-20 16:37] LABS: Appearance,Urine Cloudy (Clear); Bacteria,Urine Rare /hpf; Bilirubin,Urine Negative (Negative); Blood,Urine Moderate (Negative); Color,Urine Yellow; Glucose,Urine (UA) Negative (Negative); Ketones,Urine Negative (Negative); Leukocyte Esterase,Urine Moderate (Negative); Mucus,Urine Moderate /hpf; Nitrite,Urine Negative (Negative); Protein,Urine 2+ (Negative); RBC,Urine 80 /hpf (0-5); Specific Gravity,Urine 1.022 (1.001-1.035); WBC,Urine 8 /hpf (0-5)
[2023-10-20] MEDS ORDERED: DIPHENOX-ATROP 2.5-0.025 MG 1 EACH TAB PO PRN (16:50)
[2023-10-20] MEDS ORDERED: HYDROcodone/APAP 5-325MG 1 EACH TAB PO PRN (16:51)
[2023-10-20] MEDS ORDERED: MORPHINE SULFATE 4 MG/ML SYRINGE IV PRN (16:51)
[2023-10-20] MEDS ORDERED: NALOXONE 0.4 MG/ML 1 ML VIAL IV PRN (16:51)
[2023-10-20] MEDS ORDERED: ONDANSETRON 4 MG/2 ML VIAL IVP PRN (16:51)
[2023-10-20] MEDS ORDERED: ACETAMINOPHEN TAB 325 MG TAB PO PRN (16:51)
[2023-10-20] MEDS: SODIUM CHLORIDE 0.9% 1,000 ML IV SCH (18:03)
[2023-10-20] MEDS: ASCORBIC ACID 500 MG TAB PO SCH (22:30)
[2023-10-20] MEDS: APIXABAN 5 MG TAB PO SCH (22:30)
[2023-10-20] MEDS: ZINC SULFATE 220 MG CAP PO SCH (22:31)
[2023-10-20] MEDS: METOPROLOL TARTRATE 25 MG TAB PO SCH (22:31)
[2023-10-20] MEDS: CHOLECALCIFEROL 25 MCG (1000 IU) TABLET PO SCH (22:31)
[2023-10-20] MEDS: ATORVASTATIN 10 MG TAB PO SCH (22:31)
[2023-10-20] MEDS: TAMSULOSIN 0.4 MG CAP.ER.24H PO SCH (22:31)
[2023-10-21] MEDS: SPIRONOLACTONE 25 MG TAB PO SCH (09:20)
[2023-10-21] MEDS: lisinopriL 5 MG TAB PO SCH (09:20)
--- NOTE | 2023-10-21 13:08 | P.HPIM ---
History of Present Illness H&P Date: 10/21/23 Chief Complaint: weakness This is a pleasant 78-year-old patient, follows with Dr. Pelayo. Chronic stable medical conditions include atrial fibrillation, COPD, hypertension, hyperlipidemia, IBS. Patient been having trouble making urine for over to 3 weeks. Went down to see his family doctor. Recently diagnosed with UTI started on Bactrim. Also was in the ER on October 16. Was asked to be admitted to the hospital. For IV antibiotics. But he could not stay because of animals at home. Was given IV ceftriaxone patient urine culture from October 16 positive for E. coli. He also had a white count of 12.4. Patient had been on Bactrim. Patient now presents feeling weak tired decreased appetite rundown. Review of systems: GEN.: Tired, decreased appetite EYES: None HEENT: None NECK: None RESPIRATORY: None CARDIOVASCULAR: None GASTROINTESTINAL: None GENITOURINARY: Urine outflow problem e MUSCULOSKELETAL: Arthritis LYMPHATICS: None HEMATOLOGICAL: None PSYCHIATRY: None NEUROLOGICAL: None Social history: Lives alone. Has a fianc that visits him. Retired. Smoked in the past. Physical examination: VITAL SIGNS: 97.7, 74, 19, 93 x 55, 95% room air GENERAL: BMI 25.6, laying bed awake a bit tired. EYES: Pupils equal. Conjunctiva olivia l. HEENT: External appearance of nose and ears normal, oral cavity grossly normal. NECK: JVD not raised; masses not palpable. HEART: First and second heart sounds are normal; no edema. LUNGS: Respiratory rate normal; clear to auscultation. ABDOMEN: Soft, nontender, liver spleen not palpable, no masses palpable. PSYCH: Alert and oriented x3; mood and affect olivia l. MUSCULOSKELETAL:No Clubbing/cyanosis;muscles-grossly intact. OA NEUROLOGICAL: Cranial nerves grossly intact; no facial asymmetry, power and sensation grossly intact. LYMPHATICS: No lymph nodes palpable in the axilla and neck INVESTIGATIONS, reviewed in the clinical context: EKG tracing personally reviewed by me-atrial fibrillation. Rate 75. Right bundle branch block October 20, 2023: White count 10.5 hemoglobin 13 platelets 240 sodium 133 potassium 4.2 creatinine 0.77 UA positive for leukoesterase, 8 WBC October 162023: White count 12.4 hemoglobin 12.7 potassium 3.8 creatinine 1.07 UA positive for leukoesterase, WBC more than 182 Urine culture: E. coli Assessment plan: -Acute UTI with cystitis. Patient's blood cultures were positive with E. coli on October 16. Had elevated white count. Was on been on Bactrim. Now presents with weakness diet. Decreased appetite. Started on IV ceftriaxone in the ER. Continue with the same. -BPH Alfuzosin -Persistent atrial fibrillation, rate controlled Eliquis. Lopressor 25 mg twice daily. -COPD in a previous smoker -Hyperlipidemia -Essential hypertension, blood pressure running on the lower side. Zestril-hold. Lopressor 25 mg twice daily. Aldactone-hold -IBS -Full code Care was discussed with the patient. Questions answered. Past Medical History Past Medical History: Atrial Fibrillation, COPD, CVA/TIA, Hyperlipidemia, Hypertension, Pneumonia Additional Past Medical History / Comment(s): IBS History of Any Multi-Drug Resistant Organisms: None Reported Past Surgical History: Adenoidectomy, Ear Surgery, Tonsillectomy Additional Past Surgical History / Comment(s): dental surgery Past Anesthesia/Blood Transfusion Reactions: No Reported Reaction Past Psychological History: No Psychological Hx Reported Smoking Status: Former smoker Past Alcohol Use History: None Reported Past Drug Use History: None Reported - Past Family History Mother Family Medical History: Cancer, Pneumonia Additional Family Medical History / Comment(s): breast CA Father Family Medical History: Coronary Artery Disease (CAD), Myocardial Infarction ([place]) Additional Family Medical History / Comment(s): Open heart surgery in for valve repairment, of heart attack in 1997 Medications and Allergies Home Medications Medication Instructions Recorded Confirmed Type Diphenox-Atrop 2.5-0.025 mg 1 tab PO QID PRN 02/18/15 10/20/23 History [Lomotil] Lovastatin [Mevacor] 40 mg PO HS 02/18/15 10/20/23 History Zinc 50 mg PO HS 06/22/20 10/20/23 History Apixaban [Eliquis] 5 mg PO BID #60 tab 06/24/20 10/20/23 Rx Spironolactone [Aldactone] 25 mg PO DAILY #30 tab 06/24/20 10/20/23 Rx Ascorbic Acid [Vitamin C] 1,000 mg PO HS 07/28/20 10/20/23 History Cholecalciferol [Vitamin D3 (25 1,000 unit PO HS 07/28/20 10/20/23 History Mcg = 1000 Iu)] Alfuzosin HCl [Alfuzosin HCl ER] 10 mg PO HS 10/20/23 10/20/23 History Metoprolol Tartrate [Lopressor] 25 mg PO BID 10/20/23 10/20/23 History Sulfamethox-Tmp 800-160Mg [Bactrim 1 tab PO BID 10/20/23 10/20/23 History DS 800-160 mg] lisinopriL [Zestril] 5 mg PO DAILY 10/20/23 10/20/23 History Allergies Allergy/AdvReac Type Severity Reaction Status Date / Time No Known Allergies Allergy Verified 10/20/23 15:09 Physical Exam Vitals: Vital Signs Temp Pulse Pulse Resp BP BP Pulse Ox 10/21/23 09:19 92/58 10/21/23 08:00 74 19 10/21/23 07:00 97.7 F 74 19 93/55 95 10/21/23 02:40 62 16 10/21/23 01:34 98.1 F 62 16 100/64 98 10/20/23 21:00 97.6 F 67 16 124/75 98 10/20/23 18:00 63 18 111/60 95 10/20/23 16:12 55 L 16 102/60 98 10/20/23 13:41 97.4 F L 77 18 85/56 99 Intake and Output 10/20/23 10/21/23 10/21/23 22:59 06:59 14:59 Output Total 200 400 Balance -200 -400 Output: Urine 200 400 Other: Voiding Method Indwelling Catheter Indwelling Catheter Weight 92.986 kg Results CBC & Chem 7: 10/20/23 14:27 10/20/23 14:27 Labs: Abnormal Lab Results - Last 24 Hours (Table) 10/20/23 10/20/23 10/20/23 Range/Units 14:27 14:27 14:27 RBC 4.12 L (4.30-5.90) m/uL Neutrophils # 7.9 H (1.3-7.7) k/uL Sodium 133 L (137-145) mmol/L Glucose 128 H (74-99) mg/dL Plasma Lactic Acid Justin 3.3 H* (0.7-2.0) mmol/L Calcium 8.1 L (8.4-10.2) mg/dL AST 67 H (17-59) U/L ALT 51 H (4-49) U/L Albumin 2.8 L (3.5-5.0) g/dL Urine Protein (Negative) Urine Blood (Negative) Ur Leukocyte Esterase (Negative) Urine RBC (0-5) /hpf Urine WBC (0-5) /hpf Urine Bacteria (None) /hpf Urine Mucus (None) /hpf 10/20/23 Range/Units 15:39 RBC (4.30-5.90) m/uL Neutrophils # (1.3-7.7) k/uL Sodium (137-145) mmol/L Glucose (74-99) mg/dL Plasma Lactic Acid Justin (0.7-2.0) mmol/L Calcium (8.4-10.2) mg/dL AST (17-59) U/L ALT (4-49) U/L Albumin (3.5-5.0) g/dL Urine Protein 2+ H (Negative) Urine Blood Moderate H (Negative) Ur Leukocyte Esterase Moderate H (Negative) Urine RBC 80 H (0-5) /hpf Urine WBC 8 H (0-5) /hpf Urine Bacteria Rare H (None) /hpf Urine Mucus Moderate H (None) /hpf Thrombosis Risk Factor Assmnt - Choose All That Apply Any of the Below Risk Factors Present?: Yes Each Factor Represents 1 point: Abnormal pulmonary function (COPD) Other Risk Factors: Yes Each Risk Factor Represents 3 Points: Age 75 years or older Other congenital or acquired thrombophilia - If yes, enter type in comment: No Thrombosis Risk Factor Assessment Total Risk Factor Score: 4 Thrombosis Risk Factor Assessment Level: Moderate Risk
--- NOTE | 2023-10-22 15:02 | P.PN ---
Progress Note - Text Progress Note Date: 10/22/23 Chief Complaint: weakness This is a pleasant 78-year-old patient, follows with Dr. Pealyo. Chronic stable medical conditions include atrial fibrillation, COPD, hypertension, hyperlipidemia, IBS. Patient been having trouble making urine for over to 3 weeks. Went down to see his family doctor. Recently diagnosed with UTI started on Bactrim. Also was in the ER on October 16. Was asked to be admitted to the hospital. For IV antibiotics. But he could not stay because of animals at home. Was given IV ceftriaxone patient urine culture from October 16 positive for E. coli. He also had a white count of 12.4. Patient had been on Bactrim. Patient now presents feeling weak tired decreased appetite rundown. October 21: Appetite is better. No fever. On IV ceftriaxone. IV fluids. Leung catheter with good urine output. Patient feels a bit better. Blood cultures ne gative now. Active Medications Acetaminophen (Acetaminophen Tab 325 Mg Tab) 650 mg PO Q6HR PRN PRN Reason: Mild Pain or Fever > 100.5 Apixaban (Apixaban 5 Mg Tab) 5 mg PO BID [facility]; Protocol Last Admin: 10/22/23 08:59 Dose: 5 mg Ascorbic Acid (Ascorbic Acid 500 Mg Tab) 1,[address] [facility] Last Admin: 10/21/23 20:23 Dose: 1,000 mg Atorvastatin Calcium (Atorvastatin 10 Mg Tab) [address] [facility] Last Admin: 10/21/23 20:22 Dose: 10 mg Cholecalciferol (Cholecalciferol 25 Mcg (1000 Iu) Tablet) [address] [facility] Last Admin: 10/21/23 20:23 Dose: 25 mcg Diphenoxylate HCl/Atropine (Diphenox-Atrop 2.5-0.025 Mg 1 Each Tab) 1 each PO QID PRN PRN Reason: IBS Sodium Chloride (Saline 0.9%) 1,000 mls @ 75 mls/hr IV .[id number] [facility] Last Admin: 10/22/23 09:00 Dose: 75 mls/hr Ceftriaxone Sodium 1 gm/ (Sodium Chloride) 50 mls @ 100 mls/hr IVPB Q24HR [facility]; Protocol Last Admin: 10/22/23 08:59 Dose: 100 mls/hr Metoprolol Tartrate (Metoprolol Tartrate 25 Mg Tab) 25 mg PO BID [facility] Last Admin: 10/22/23 08:59 Dose: 25 mg Naloxone HCl (Naloxone 0.4 Mg/Ml 1 Ml Vial) 0.2 mg IV Q2M PRN PRN Reason: Opioid Reversal Ondansetron HCl (Ondansetron 4 Mg/2 Ml Vial) 4 mg IVP Q8HR PRN PRN Reason: Nausea And Vomiting Tamsulosin HCl (Tamsulosin 0.4 Mg Cap.Er.24h) 0.4 mg PO HS [facility] Last Admin: 10/21/23 20:23 Dose: 0.4 mg Social history: Lives alone. Has a fianc that visits him. Retired. Smoked in the past. Physical examination: VITAL SIGNS: 97.6, 57, 15, 106 x 70, 99% room air GENERAL: Reclining in bed, comfortable EYES: Pupils equal. Conjunctiva olivia l. HEENT: External appearance of nose and ears normal, oral cavity grossly normal. NECK: JVD not raised; masses not palpable. HEART: First and second heart sounds are normal; no edema. LUNGS: Respiratory rate normal; clear to auscultation. ABDOMEN: Soft, nontender, liver spleen not palpable, no masses palpable. Leung catheter with urinary bag PSYCH: Alert and oriented x3; mood and affect olivia l. MUSCULOSKELETAL:No Clubbing/cyanosis;muscles-grossly intact. OA INVESTIGATIONS, reviewed in the clinical context: EKG tracing personally reviewed by me-atrial fibrillation. Rate 75. Right bundle branch block October 20, 2023: White count 10.5 hemoglobin 13 platelets 240 sodium 133 potassium 4.2 creatinine 0.77 UA positive for leukoesterase, 8 WBC October 162023: White count 12.4 hemoglobin 12.7 potassium 3.8 creatinine 1.07 UA positive for leukoesterase, WBC more than 182 Urine culture: E. coli Assessment plan: -Acute UTI with cystitis. Patient's blood cultures were positive with E. coli on October 16. Had elevated white count. Was on been on Bactrim. Now presents with weakness diet. Decreased appetite. IV ceftriaxone. Continue with the same. -BPH Alfuzosin -Persistent atrial fibrillation, rate controlled Eliquis. Lopressor 25 mg twice daily. -COPD in a previous smoker -Hyperlipidemia -Essential hypertension, blood pressure running on the lower side. Zestril-hold. Lopressor 25 mg twice daily. Aldactone-hold -IBS -Full code Patient doing better. 1 more day of IV antibiotic. Plan for discharge tomorrow. Past Medical History Past Medical History: Atrial Fibrillation, COPD, CVA/TIA, Hyperlipidemia, Hypertension, Pneumonia Additional Past Medical History / Comment(s): IBS History of Any Multi-Drug Resistant Organisms: None Reported Past Surgical History: Adenoidectomy, Ear Surgery, Tonsillectomy Additional Past Surgical History / Comment(s): dental surgery Past Anesthesia/Blood Transfusion Reactions: No Reported Reaction Past Psychological History: No Psychological Hx Reported Smoking Status: Former smoker Past Alcohol Use History: None Reported Past Drug Use History: None Reported
[2023-10-22 22:25] VITALS: RESP 16
[2023-10-23 10:36] VITALS: BP 102/59; PULSE 61; TEMP 97.4
--- NOTE | 2023-10-23 18:10 | P.DS ---
Providers Date of admission: 10/20/23 17:38 Expected date of discharge: 10/23/23 Attending physician: Jesse Sosa Primary care physician: Brian Pelayo [facility] Course: Chief Complaint: weakness This is a pleasant 78-year-old patient, follows with Dr. Pelayo. Chronic stable medical conditions include atrial fibrillation, COPD, hypertension, hyperlipidemia, IBS. Patient been having trouble making urine for over to 3 weeks. Went down to see his family doctor. Recently diagnosed with UTI started on Bactrim. Also was in the ER on October 16. Was asked to be admitted to the hospital. For IV antibiotics. But he could not stay because of animals at home. Was given IV ceftriaxone patient urine culture from October 16 positive for E. coli. He also had a white count of 12.4. Patient had been on Bactrim. Patient now presents feeling weak tired decreased appetite rundown. October 21: Appetite is better. No fever. On IV ceftriaxone. IV fluids. Leung catheter with good urine output. Patient feels a bit better. Blood cultures negative now. October 22: Eating well. Feeling really good. Will be discharged with this catheter. Follow-up with urology outpatient. Blood cultures remain negative. Urine clear. Will complete 7 days of Keflex. As blood pressure running on the lower side Aldactone and Zestril was discontinued. Lopressor changed to 12.5 3 times daily. Discussion and discharge planning more than 35 minutes Social history: Lives alone. Has a fianc that visits him. Retired. Smoked in the past. Physical examination: VITAL SIGNS: 97.4, 61, 16, 102 x 59, 99% room air GENERAL: Reclining in bed, comfortable EYES: Pupils equal. Conjunctiva olivia l. HEENT: External appearance of nose and ears normal, oral cavity grossly normal. NECK: JVD not raised; masses not palpable. HEART: First and second heart sounds are normal; no edema. LUNGS: Respiratory rate normal; clear to auscultation. ABDOMEN: Soft, nontender, liver spleen not palpable, no masses palpable. Leung catheter with urinary bag PSYCH: Alert and oriented x3; mood and affect olivia l. MUSCULOSKELETAL:No Clubbing/cyanosis;muscles-grossly intact. OA INVESTIGATIONS, reviewed in the clinical context: EKG tracing personally reviewed by me-atrial fibrillation. Rate 75. Right bundle branch block October 20, 2023: White count 10.5 hemoglobin 13 platelets 240 sodium 133 potassium 4.2 creatinine 0.77 UA positive for leukoesterase, 8 WBC October 162023: White count 12.4 hemoglobin 12.7 potassium 3.8 creatinine 1.07 UA positive for leukoesterase, WBC more than 182 Urine culture: E. coli Assessment plan: -Acute UTI with cystitis. Patient's blood cultures were positive with E. coli on October 16. Had elevated white count. Was on been on Bactrim. Now presents with weakness diet: Much better e. IV ceftriaxone. Discharged on Keflex 5 mg 4 times daily for 7 days -BPH, with bladder outflow obstruction. Patient has a Leung catheter. Alfuzosin Follow-up with urology outpatient -Persistent atrial fibrillation, rate controlled Eliquis. Lopressor 12.5 p.o. 3 times daily -COPD in a previous smoker -Hyperlipidemia -Essential hypertension, blood pressure running on the lower side. Zestril-and Aldactone discontinued Lopressor decreased to 12.5 p.o. 3 times daily -IBS -Full code Disposition: Home Past Medical History Past Medical History: Atrial Fibrillation, COPD, CVA/TIA, Hyperlipidemia, Hypertension, Pneumonia Additional Past Medical History / Comment(s): IBS History of Any Multi-Drug Resistant Organisms: None Reported Past Surgical History: Adenoidectomy, Ear Surgery, Tonsillectomy Additional Past Surgical History / Comment(s): dental surgery Past Anesthesia/Blood Transfusion Reactions: No Reported Reaction Past Psychological History: No Psychological Hx Reported Smoking Status: Former smoker Past Alcohol Use History: None Reported Past Drug Use History: None Reported Plan - Discharge Summary Discharge Rx Participant: No New Discharge Prescriptions: New Cephalexin [Keflex] 500 mg PO Q6HR #28 cap Continue Diphenox-Atrop 2.5-0.025 mg [Lomotil] 1 tab PO QID PRN PRN Reason: IBS Lovastatin [Mevacor] 40 mg PO HS Apixaban [Eliquis] 5 mg PO BID #60 tab Cholecalciferol [Vitamin D3 (25 Mcg = 1000 Iu)] 1,000 unit PO HS Ascorbic Acid [Vitamin C] 1,000 mg PO HS Alfuzosin HCl [Alfuzosin HCl ER] 10 mg PO HS Changed Metoprolol Tartrate [Lopressor] 12.5 mg PO TID #0 Discontinued Zinc 50 mg PO HS Spironolactone [Aldactone] 25 mg PO DAILY #30 tab Sulfamethox-Tmp 800-160Mg [Bactrim DS 800-160 mg] 1 tab PO BID lisinopriL [Zestril] 5 mg PO DAILY Discharge Medication List Diphenox-Atrop 2.5-0.025 mg [Lomotil] 1 tab PO QID PRN 02/18/15 [History] Lovastatin [Mevacor] 40 mg PO HS 02/18/15 [History] Apixaban [Eliquis] 5 mg PO BID #60 tab 06/24/20 [Rx] Ascorbic Acid [Vitamin C] 1,000 mg PO HS 07/28/20 [History] Cholecalciferol [Vitamin D3 (25 Mcg = 1000 Iu)] 1,000 unit PO HS 07/28/20 [History] Alfuzosin HCl [Alfuzosin HCl ER] 10 mg PO HS 10/20/23 [History] Cephalexin [Keflex] 500 mg PO Q6HR #28 cap 10/23/23 [Rx] Metoprolol Tartrate [Lopressor] 12.5 mg PO TID #0 10/23/23 [Rx] Follow up Appointment(s)/Referral(s): Brian Pelayo DO [Primary Care Provider] - 1-2 days (Left message with Dr. Pelayo office to call you with follow up appt.) Juan M Ferrera MD [STAFF PHYSICIAN] - 10/31/23 8:00 am Patient Instructions/Handouts: Urinary Tract Infection in Men (DC), Leung Catheter Placement and Care (DC) Activity/Diet/Wound Care/Special Instructions: lopressor is not a new Rx Discharge Disposition: HOME SELF-CARE
== END 2023-10-23 13:05 | disposition home or self-care (01) ==
LOC: EC 13:40 → 6NMEDSUR 17:38
PROVIDERS: ADMIT Hospitalist; ATTEND Hospitalist
DX: N30.00 Acute cystitis without hematuria (principal); I95.9 Hypotension, unspecified; I48.19 Other persistent atrial fibrillation; J44.9 Chronic obstructive pulmonary disease, unspecified; E78.5 Hyperlipidemia, unspecified; I10 Essential (primary) hypertension; K58.9 Irritable bowel syndrome, unspecified; N40.0 Benign prostatic hyperplasia without lower urinary tract symptoms; Z86.73 Personal history of transient ischemic attack (TIA), and cerebral infarction without residual deficits; Z87.891 Personal history of nicotine dependence; Z79.899 Other long term (current) drug therapy
CPT/HCPCS: 96365; 96366 ×2; 96376; 99285; 36415; 93005; 80053; 83605; 83735; 84100; 84484; 85025; 85610; 85730; 81001; 87040; G0378 ×4; J0696 ×4

== ENCOUNTER 2024-05-31 14:33 | Inpatient (IN) | payer MEDICARE, OTHER ==
--- NOTE | 2024-05-31 15:05 | ED ---
Weakness HPI - General Source: patient, EMS Mode of arrival: EMS Limitations: no limitations <Noemi Steven - Last Filed: 05/31/24 23:23> - General Source: patient, EMS, RN notes reviewed, old records reviewed Mode of arrival: EMS Limitations: no limitations - History of Present Illness MD Complaint: generalized weakness (Unable to walk found down), lack of energy, difficulty walking -: days(s) (2) Location: generalized Severity: severe Severity scale (1-10): 10 Quality: constant Improves with: none Worsens with: none Associated Symptoms: denies other symptoms <Neo Murray - Last Filed: 06/04/24 21:30> - General Chief complaint: Weakness Stated complaint: rhabdomyolysis Time Seen by Provider: 05/31/24 14:40 - History of Present Illness Initial comments: 79-year-old male with past medical history of A-fib, COPD, CVA who presents em ergency department from home. Patient was found down laying on his right side on the floor. He had been there for approximately 48 hours. Patient is confused and cannot provide much history. Does not know how he ended up on the ground. He is incontinent of stool and urine. Heart rate found to be 180s to 200. Does have a history of A-fib and has not taken his medications due to him being on the floor. He does have some notable tissue breakdown on his right chest wall. He denies hitting his head. He has not taken his anticoagulation on a consistent basis. No other alleviating, precipitating or modifying factors (Noemi Steven) This is a 79-year-old male to the ER found down found down for about 2 days. Patient presents with no history here in the ER (Neo Murray) - Related Data Home Medications Medication Instructions Recorded Confirmed Diphenox-Atrop 2.5-0.025 mg 1 tab PO TID PRN 02/18/15 05/31/24 [Lomotil] Lovastatin [Mevacor] 40 mg PO HS 02/18/15 05/31/24 Ascorbic Acid [Vitamin C] 1,000 mg PO HS 07/28/20 05/31/24 Alfuzosin HCl [Alfuzosin HCl ER] 10 mg PO HS 10/20/23 05/31/24 Cholecalciferol [Vitamin D3 (25 25 mcg PO DAILY 05/31/24 05/31/24 Mcg = 1000 Iu)] Metoprolol Tartrate [Lopressor] 25 mg PO BID 05/31/24 05/31/24 Spironolactone [Aldactone] 25 mg PO DAILY 05/31/24 05/31/24 Zinc Gluconate [Zinc] 50 mg PO DAILY 05/31/24 05/31/24 lisinopriL [Zestril] 5 mg PO DAILY 05/31/24 05/31/24 Previous Rx's Medication Instructions Recorded Apixaban [Eliquis] 5 mg PO BID #60 tab 06/24/20 Allergies Allergy/AdvReac Type Severity Reaction Status Date / Time No Known Allergies Allergy Verified 05/31/24 17:43 Review of Systems ROS Other: All systems not noted in ROS Statement are negative. <Noemi Steven - Last Filed: 05/31/24 23:23> ROS Other: All systems not noted in ROS Statement are negative. <Neo Murray - Last Filed: 06/04/24 21:30> ROS Statement: Those systems with pertinent positive or pertinent negative responses have been documented in the HPI. Past Medical History Past Medical History: Atrial Fibrillation, COPD, CVA/TIA, Hyperlipidemia, Hypertension, Pneumonia Additional Past Medical History / Comment(s): IBS History of Any Multi-Drug Resistant Organisms: None Reported Past Surgical History: Adenoidectomy, Ear Surgery, Tonsillectomy Additional Past Surgical History / Comment(s): dental surgery Past Anesthesia/Blood Transfusion Reactions: No Reported Reaction Past Psychological History: No Psychological Hx Reported Smoking Status: Former smoker Past Alcohol Use History: Occasional Past Drug Use History: None Reported - Past Family History Mother Family Medical History: Cancer, Pneumonia Additional Family Medical History / Comment(s): breast CA Father Family Medical History: Coronary Artery Disease (CAD), Myocardial Infarction (PA) Additional Family Medical History / Comment(s): Open heart surgery in 's for valve repairment, of heart attack in 1997 <Noemi Steven - Last Filed: 05/31/24 23:23> General Exam Limitations: altered mental status General appearance: alert Head exam: Present: atraumatic, normocephalic, normal inspection Eye exam: Present: normal appearance, PERRL, EOMI. Absent: scleral icterus, conjunctival injection, periorbital swelling ENT exam: Present: mucous membranes dry Neck exam: Present: normal inspection. Absent: tenderness, meningismus, lymphadenopathy Respiratory exam: Present: normal lung sounds bilaterally, chest wall tenderness (Skin breakdown over the right chest wall). Absent: respiratory distress, wheezes, rales, rhonchi, stridor Cardiovascular Exam: Present: tachycardia, irregular rhythm GI/Abdominal exam: Present: soft, normal bowel sounds. Absent: distended, tenderness, guarding, rebound, rigid Neurological exam: Present: alert Psychiatric exam: Present: flat affect Skin exam: Present: abrasion (Over the anterior knees) <TenishaNoemi A - Last Filed: 05/31/24 23:23> General appearance: alert, in no apparent distress, anxious, in distress Head exam: Present: atraumatic, normocephalic, normal inspection Eye exam: Present: normal appearance, PERRL, EOMI. Absent: scleral icterus, conjunctival injection, periorbital swelling ENT exam: Present: normal exam, mucous membranes moist Neck exam: Present: normal inspection. Absent: tenderness, meningismus, lymphadenopathy Respiratory exam: Present: normal lung sounds bilaterally. Absent: respiratory distress, wheezes, rales, rhonchi, stridor Cardiovascular Exam: Present: tachycardia, irregular rhythm, normal heart sounds. Absent: systolic murmur, diastolic murmur, rubs, gallop, clicks GI/Abdominal exam: Present: soft, normal bowel sounds. Absent: distended, tenderness, guarding, rebound, rigid Extremities exam: Present: normal inspection, full ROM, normal capillary refill. Absent: tenderness, pedal edema, joint swelling, calf tenderness Back exam: Present: normal inspection Neurological exam: Present: alert, oriented X3, CN II-XII intact Psychiatric exam: Present: normal affect, normal mood Skin exam: Present: warm, dry, intact, normal color. Absent: rash <Neo Murray B - Last Filed: 06/04/24 21:30> Course <Neo Murray - Last Filed: 06/04/24 21:30> Vital Signs 05/31/24 05/31/24 05/31/24 14:34 14:48 15:28 Temperature 97.2 F L Pulse Rate 179 H 188 H Pulse Rate [ 170 H Computer Repair Technician ] Respiratory 18 18 Rate Blood Pressure 135/99 147/76 Blood Pressure [Left Arm] O2 Sat by Pulse 80 L 98 Oximetry 05/31/24 05/31/24 05/31/24 16:16 16:23 16:49 Temperature Pulse Rate 170 H 165 H 161 H Pulse Rate [ Computer Repair Technician ] Respiratory 18 18 18 Rate Blood Pressure 118/80 117/81 119/97 Blood Pressure [Left Arm] O2 Sat by Pulse 96 97 98 Oximetry 05/31/24 05/31/24 05/31/24 17:42 18:05 18:14 Temperature Pulse Rate 163 H 168 H 149 H Pulse Rate [ Computer Repair Technician ] Respiratory 18 18 18 Rate Blood Pressure 98/50 113/86 112/85 Blood Pressure [Left Arm] O2 Sat by Pulse 97 96 Oximetry 05/31/24 05/31/24 05/31/24 18:22 18:58 19:28 Temperature Pulse Rate 117 H 160 H 144 H Pulse Rate [ Computer Repair Technician ] Respiratory 18 16 18 Rate Blood Pressure 106/67 136/78 Blood Pressure [Left Arm] O2 Sat by Pulse Oximetry 05/31/24 05/31/24 06/01/24 20:00 22:00 00:00 Temperature Pulse Rate 141 H 140 H 128 H Pulse Rate [ Computer Repair Technician ] Respiratory 18 18 18 Rate Blood Pressure 102/65 104/78 104/93 Blood Pressure [Left Arm] O2 Sat by Pulse 96 98 96 Oximetry 06/01/24 06/01/24 06/01/24 02:00 04:00 06:00 Temperature Pulse Rate 118 H 109 H 117 H Pulse Rate [ Computer Repair Technician ] Respiratory 18 18 18 Rate Blood Pressure 106/88 112/79 90/68 Blood Pressure [Left Arm] O2 Sat by Pulse 97 97 96 Oximetry 06/01/24 06/01/24 06/01/24 07:39 07:52 11:59 Temperature Pulse Rate 110 H 149 H Pulse Rate [ Computer Repair Technician ] Respiratory 18 18 Rate Blood Pressure 88/75 73/62 Blood Pressure [Left Arm] O2 Sat by Pulse 94 L 97 95 Oximetry 06/01/24 06/01/24 06/01/24 16:57 18:29 21:29 Temperature 98 F Pulse Rate 120 H 130 H 130 H Pulse Rate [ Computer Repair Technician ] Respiratory 20 24 18 Rate Blood Pressure 99/89 98/68 101/78 Blood Pressure [Left Arm] O2 Sat by Pulse 100 95 96 Oximetry 06/02/24 06/02/24 06/02/24 00:00 02:24 05:48 Temperature 97.6 F 97.8 F Pulse Rate 112 H 144 H Pulse Rate [ 89 Computer Repair Technician ] Respiratory 18 16 18 Rate Blood Pressure 85/74 101/89 Blood Pressure 114/77 [Left Arm] O2 Sat by Pulse 93 L 97 93 L Oximetry 06/02/24 06/02/24 06/02/24 06:25 07:25 09:00 Temperature 97.5 F L Pulse Rate 114 H 112 H Pulse Rate [ 150 H Computer Repair Technician ] Respiratory 18 20 Rate Blood Pressure 108/87 93/61 Blood Pressure [Left Arm] O2 Sat by Pulse 96 92 L Oximetry 06/02/24 06/02/24 06/02/24 10:00 10:52 12:00 Temperature 98 F Pulse Rate 130 H 117 H 130 H Pulse Rate [ 145 H 117 H 130 H Computer Repair Technician ] Respiratory 20 20 20 Rate Blood Pressure 99/55 100/72 110/60 Blood Pressure 100/72 110/60 [Left Arm] O2 Sat by Pulse 96 96 98 Oximetry 06/02/24 06/02/24 06/02/24 13:00 14:00 14:47 Temperature 98.9 F Pulse Rate 112 H 110 H Pulse Rate [ 112 H 110 H 110 H Computer Repair Technician ] Respiratory 20 20 20 Rate Blood Pressure 95/67 108/72 Blood Pressure 95/67 108/72 108/70 [Left Arm] O2 Sat by Pulse 96 98 96 Oximetry 06/02/24 06/02/24 06/02/24 15:43 17:00 17:58 Temperature 98.9 F Pulse Rate 109 H 110 H 110 H Pulse Rate [ 123 H 110 H 100 Computer Repair Technician ] Respiratory 20 20 20 Rate Blood Pressure 95/35 112/82 108/88 Blood Pressure 95/35 112/82 100/88 [Left Arm] O2 Sat by Pulse 96 96 96 Oximetry 06/02/24 06/02/24 20:00 20:31 Temperature Pulse Rate 104 H Pulse Rate [ 100 Computer Repair Technician ] Respiratory 16 16 Rate Blood Pressure 109/87 Blood Pressure [Left Arm] O2 Sat by Pulse 96 Oximetry - Reevaluation(s) Reevaluation #1: 05/31/24 17:38 Medical records reviewed (Neo Murray) Reevaluation #2: 05/31/24 17:38 Patient symptoms unchanged 05/31/24 17:38 Heart rate is improving (Neo Murray) Reevaluation #3: 05/31/24 17:38 Patient informed of results and questions answered (Neo Murray) Reevaluation #4: Patient is showing mild improvement here in the ER (Neo Murray) Reevaluation #5: Differential Altered Mental Status: Hypoglycemia, DKA, hypercapnia, ETOH, overdose, CO poisoning, trauma, myxedema coma, HTN encephalopathy, infection, encephalitis, psychosis, intercranial hemorrhage, hepatic encephalopathy, meningitis, CVA, this is not meant to be an all-inclusive list Differential Palpitations Ventricular arrhythmias, atrial arrhythmias, myocardial infarction, anemia, thyrotoxicosis, electrolyte imbalance, hypokalemia, pulmonary embolism, pulmonary disease, drugs, alcohol, anxiety, stress.... This is not meant to be an all-inclusive list. Differential Weakness: Hypoglycemia, shock, sepsis, hyponatremia, anemia, infection, PA, ETOH, adverse medicine reaction, overdose, stroke, this is not meant to be an all-inclusive list. (Neo Murray) - Consultations Consultation #1: Spoke with admitting physicians who agreed to admit this patient (Neo Murray) Medical Decision Making - Lab Data Result diagrams: 05/31/24 14:49 05/31/24 14:49 <Noemi Steven - Last Filed: 05/31/24 23:23> - Lab Data Result diagrams: 06/03/24 06:24 06/03/24 06:24 - Radiology Data Radiology results: report reviewed (CT brain C-spine chest abdomen pelvis negative for acute disease), image reviewed <Neo Murray - Last Filed: 06/04/24 21:30> - Medical Decision Making Was pt. sent in by a medical professional or institution (, PA, [facility], urgent care, hospital, or residential...) When possible be specific @ -No Did you speak to anyone other than the patient for history (EMS, parent, family, police, friend...)? What history was obtained from this source @ -Spoke with EMS for history Did you review nursing and triage notes (agree or disagree)? Why? @ -I reviewed and agree with nursing and triage notes Were old charts reviewed (outside hosp., previous admission, EMS record, old EKG, old radiological studies, urgent care reports/EKG's, residential records)? Report findings @ -No old charts were reviewed Differential Diagnosis (chest pain, altered mental status, abdominal pain women, abdominal pain men, vaginal bleeding, weakness, fever, dyspnea, syncope, hea dache, dizziness, GI bleed, back pain, seizure, CVA, palpatations, mental health, musculoskeletal)? @ -Differential Weakness: Hypoglycemia, shock, sepsis, hyponatremia, anemia, infection, PA, ETOH, adverse medicine reaction, overdose, stroke, this is not meant to be an all-inclusive list. EKG interpreted by me (3pts min.). @ -Yes and demonstrates A-fib with a rate of 188. QRS 133. QTc of 341. ST depression the 1 through V6. Likely rate dependent X-rays interpreted by me (1pt min.). @ -Not done yet CT interpreted by me (1pt min.). @ -Not done yet U/S interpreted by me (1pt. min.). @ -None done What testing was considered but not performed or refused? (CT, X-rays, U/S, labs)? Why? @ -None What meds were considered but not given or refused? Why? @ -None Did you discuss the management of the patient with other professionals (professionals i.e. , PA, [employer], lab, RT, psych nurse, social media job titles, senior insight manager international, teacher, credit administration officer, assistant case manager)? Give summary @ -Discussed case with Dr. Murray who will take over care of the patient Was smoking cessation discussed for >3mins.? @ -No Was critical care preformed (if so, how long)? @ -yes, 35 minutes for management of rapid afib Were there social determinants of health that impacted care today? How? (Homelessness, low income, unemployed, alcoholism, drug addiction, transportation, low edu. Level, literacy, decrease access to med. care, detention, rehab)? @ -No Was there de-escalation of care discussed even if they declined (Discuss DNR or withdrawal of care, Hospice)? DNR status @ -No What co-morbidities impacted this encounter? (DM, HTN, Smoking, COPD, CAD, Cancer, CVA, ARF, Chemo, Hep., AIDS, mental health diagnosis, sleep apnea, morbid obesity)? @ -CVA, A-fib Was patient admitted / discharged? Hospital course, mention meds given and route, prescriptions, significant lab abnormalities, going to OR and other pertinent info. @ -Upon arrival patient seen and evaluated in trauma 1. Thorough history and physical exam was performed. Patient found down for significant period of time. Patient in rapid A-fib. IV is established. IV fluids are started. Laboratory studies are conducted. Patient will be CT'ed. patient signed out to Dr. Murray Undiagnosed new problem with uncertain prognosis? @ -No Drug Therapy requiring intensive monitoring for toxicity (Heparin, Nitro, Insulin, Cardizem)? @ -No Were any procedures done? @ -No Diagnosis/symptom? @ -Found down, A-fib with RVR Acute, or Chronic, or Acute on Chronic? @ -Acute Uncomplicated (without systemic symptoms) or Complicated (systemic symptoms)? @ -Complicated Side effects of treatment? @ -No Exacerbation, Progression, or Severe Exacerbation? @ -No Poses a threat to life or bodily function? How? (Chest pain, USA, PA, pneumonia, PE, COPD, DKA, ARF, appy, cholecystitis, CVA, Diverticulitis, Homicidal, Suicidal, threat to staff... and all critical care pts) @ -Yes as patient does have rapidly elevated heart rate (Noemi Steven) 79 male who can be admitted for significant rhabdomyolysis A-fib with RVR and altered mental status. Heart rate is difficult to control here in the ER will admit for further supportive care (Neo Murray) - Lab Data Lab Results 05/31/24 05/31/24 05/31/24 Range/Units 14:49 14:49 14:49 WBC 16.4 H (3.8-10.6) k/uL RBC 4.74 (4.30-5.90) m/uL Hgb 15.0 (13.0-17.5) gm/dL Hct 44.1 (39.0-53.0) % MCV 93.0 (80.0-100.0) fL MCH 31.5 (25.0-35.0) pg MCHC 33.9 (31.0-37.0) g/dL RDW 13.7 (11.5-15.5) % Plt Count 150 (150-450) k/uL MPV 9.6 Neutrophils % 85 % Lymphocytes % 10 % Monocytes % 4 % Eosinophils % 1 % Basophils % 0 % Neutrophils # 14.0 H (1.3-7.7) k/uL Lymphocytes # 1.6 (1.0-4.8) k/uL Monocytes # 0.6 (0-1.0) k/uL Eosinophils # 0.1 (0-0.7) k/uL Basophils # 0.0 (0-0.2) k/uL PT 10.8 (10.0-12.5) sec INR 1.0 (<1.2) APTT 26.3 (22.0-30.0) sec Sodium 139 (137-145) mmol/L Potassium 3.7 (3.5-5.1) mmol/L Chloride 102 (98-107) mmol/L Carbon Dioxide 25 (22-30) mmol/L Anion Gap 12 mmol/L BUN 44 H (9-20) mg/dL Creatinine 0.82 (0.66-1.25) mg/dL Est GFR (CKD-EPI)AfAm >90 (>60 ml/min/1.73 sqM) Est GFR (CKD-EPI)NonAf 85 (>60 ml/min/1.73 sqM) Glucose 108 H (74-99) mg/dL Lactic Ac Sepsis Rflx Plasma Lactic Acid Justin (0.7-2.0) mmol/L Calcium 8.6 (8.4-10.2) mg/dL Magnesium 2.3 (1.6-2.3) mg/dL Total Bilirubin 2.2 H (0.2-1.3) mg/dL AST 137 H (17-59) U/L ALT 56 H (4-49) U/L Alkaline Phosphatase 59 (38-126) U/L Creatine Kinase 2275 H* (55-170) U/L Troponin I (0.000-0.034) ng/mL NT-Pro-B Natriuret Pep 7480 pg/mL Total Protein 6.5 (6.3-8.2) g/dL Albumin 3.3 L (3.5-5.0) g/dL 10/18/24 10/18/24 10/18/24 Range/Units 14:49 14:49 15:28 WBC (3.8-10.6) k/uL RBC (4.30-5.90) m/uL Hgb (13.0-17.5) gm/dL Hct (39.0-53.0) % MCV (80.0-100.0) fL MCH (25.0-35.0) pg MCHC (31.0-37.0) g/dL RDW (11.5-15.5) % Plt Count (150-450) k/uL MPV Neutrophils % % Lymphocytes % % Monocytes % % Eosinophils % % Basophils % % Neutrophils # (1.3-7.7) k/uL Lymphocytes # (1.0-4.8) k/uL Monocytes # (0-1.0) k/uL Eosinophils # (0-0.7) k/uL Basophils # (0-0.2) k/uL PT (10.0-12.5) sec INR (<1.2) APTT (22.0-30.0) sec Sodium (137-145) mmol/L Potassium (3.5-5.1) mmol/L Chloride (98-107) mmol/L Carbon Dioxide (22-30) mmol/L Anion Gap mmol/L BUN (9-20) mg/dL Creatinine (0.66-1.25) mg/dL Est GFR (CKD-EPI)AfAm (>60 ml/min/1.73 sqM) Est GFR (CKD-EPI)NonAf (>60 ml/min/1.73 sqM) Glucose (74-99) mg/dL Lactic Ac Sepsis Rflx Y Plasma Lactic Acid Justin 2.4 H* (0.7-2.0) mmol/L Calcium (8.4-10.2) mg/dL Magnesium (1.6-2.3) mg/dL Total Bilirubin (0.2-1.3) mg/dL AST (17-59) U/L ALT (4-49) U/L Alkaline Phosphatase (38-126) U/L Creatine Kinase (55-170) U/L Troponin I <0.012 (0.000-0.034) ng/mL NT-Pro-B Natriuret Pep pg/mL Total Protein (6.3-8.2) g/dL Albumin (3.5-5.0) g/dL Critical Care Time Critical Care Time: Yes Total Critical Care Time: 31 <Neo Murray - Last Filed: 06/04/24 21:30> Disposition <Noemi Steven - Last Filed: 05/31/24 23:23> Is patient prescribed a controlled substance at d/c from ED?: No Time of Disposition: 17:30 <Neo Murray - Last Filed: 06/04/24 21:30> Clinical Impression: Weakness, Atrial fibrillation with RVR, Rhabdomyolysis, Acute renal failure, Dehydration, Hypoxia, Acute bronchitis with COPD Disposition: ADMITTED IP TO THIS HOSP Condition: Serious
[2024-05-31 15:11] LABS: Basophils % (A) 0 %; Eosinophils # (A) 0.1 k/uL (0-0.7); Eosinophils % (A) 1 %; HCT 44.1 % (39.0-53.0); Lymphocytes # (A) 1.6 k/uL (1.0-4.8); Lymphocytes % (A) 10 %; MCH 31.5 pg (25.0-35.0); MCHC 33.9 g/dL (31.0-37.0); Mean Platelet Volume 9.6; Monocytes # (A) 0.6 k/uL (0-1.0); Monocytes % (A) 4 %; Neutrophils % (A) 85 %; Platelet Count 150 k/uL (150-450); RBC 4.74 m/uL (4.30-5.90); RDW 13.7 % (11.5-15.5); WBC 16.4 k/uL (3.8-10.6)
[2024-05-31 15:20] LABS: ALT 56 U/L (4-49); AST 137 U/L (17-59); African American GFR (CKD) >90 (>60 ml/min/1.73 sqM); Albumin 3.3 g/dL (3.5-5.0); Alkaline Phosphatase 59 U/L (38-126); Anion Gap 12 mmol/L; Blood Urea Nitrogen 44 mg/dL (9-20); Calcium 8.6 mg/dL (8.4-10.2); Carbon Dioxide 25 mmol/L (22-30); Chloride 102 mmol/L (98-107); Glucose 108 mg/dL (74-99); Magnesium 2.3 mg/dL (1.6-2.3); Non-African American GFR(CKD) 85 (>60 ml/min/1.73 sqM); Potassium 3.7 mmol/L (3.5-5.1); Sodium 139 mmol/L (137-145); Total Bilirubin 2.2 mg/dL (0.2-1.3); Total Protein 6.5 g/dL (6.3-8.2)
[2024-05-31] MEDS: SODIUM CHLORIDE 0.9% 1,000 ML IV ONE (15:20)
[2024-05-31 15:25] LABS: Partial Thromboplastin Time 26.3 sec (22.0-30.0); Prothrombin Time 10.8 sec (10.0-12.5)
[2024-05-31 15:28] LABS: Creatine Kinase 2275 U/L (55-170); NT-Pro-B-Type Natriuretic Pept 7480 pg/mL
--- NOTE | 2024-05-31 16:14 | CT ---
EXAMINATION TYPE: CT brain paul krause DATE OF EXAM: 05/31/2024 COMPARISON: 02/18/2015 HISTORY: pt found down on the ground, unsure how long he was down CT DLP: 3415.2 mGycm, Automated exposure control for dose reduction was used. CONTRAST: Patient injected with 0 mL of Isovue 300. CT of the brain is performed utilizing 3 mm thick sections through the posterior fossa and 3 mm thick sections through the remaining calvarium. Study is performed within 24 hours of arrival to the hospital. No abnormal hyperdensity is present to suggest an acute intracranial hemorrhage. No mass lesion is evident. No acute infarcts are evident. Periventricular white matter hypodensity is present, likely on the ba sis of chronic white matter ischemic changes. Ventricles and sulci are prominent for the patient age. Paranasal sinuses and mastoid air cells within the [id number] are clear. IMPRESSIONS: 1. No acute intracranial process. Follow-up MRI can be performed as clinically indicated. 2. Soft tissue swelling posterior occipital vertex. 3. Atrophy with chronic appearing periventricular white matter ischemic changes, progressive from com parison of 2014. CT cervical spine. COMPARISON: None CT of the cervical spine is performed in the axial plane at 2 mm thick sections. Reconstructed image s in the coronal, and sagittal plane are reviewed on the computer. No acute fractures are evident. Vertebral body alignment is normal. There is loss of disc height C3-4. Some endplate spurring may be present at C3-4. Mild anterior theca l sac compression may be present at this level. Vertebral body heights are preserved. No spinal canal stenosis is evident. Foraminal narrowing from uncovertebral joint hypertrophy is present C3-4 bilaterally. IMPRESSION: 1. No acute osseous abnormality cervical spine. 2. Degenerative changes C3-4 discussed above [facility], Workstation: [email or web address], 05/31/2024 4:12 PM
[2024-05-31] MEDS: SODIUM CHLORIDE 0.9% 1,000 ML IV STA (16:20)
[2024-05-31] MEDS: METOPROLOL TARTRATE 5 MG/5 ML VIAL IVP STA ×3 (16:20→19:37)
[2024-05-31] MEDS: MAGNESIUM SULFATE-D5W PMX 1 GM in DEXTROSE/WATER 1 100ML.BAG IVPB ONE (16:21)
--- NOTE | 2024-05-31 16:37 | CT ---
EXAMINATION TYPE: CT ChestAbdPelvis w con DATE OF EXAM: 05/31/2024 INDICATION: pt found down on the ground, unsure how long he was down COMPARISON: 06/22/2020 CT DLP: 3415.2 mGycm CONTRAST: Performed with Oral Contrast and with IV Contrast, patient injected with 100 ml mL of Isovue 300. TECHNIQUE: Axial images at 5 mm thick sections. Reconstructed images in the coronal plane. Delayed images through the kidneys. FINDINGS: CT CHEST: Portion of the thyroid visualized is normal. Small right pleural effusion is present. Minimal left pleural effusion is present. There appears to b e some atelectasis or soft tissue density within the right middle lobe. Follow-up recommended. No enlarged mediastinal or hilar adenopathy is evident. There are scattered small lymph nodes present . The ascending aorta diameter at the level of the main pulmonary artery is 3.6 cm. The main pulmonary artery diameter at the bifurcation is 2.[address] ABDOMEN: Liver: Multiple scattered calcified granulomata throughout the liver. Spleen: Scattered calcified granulomata are within the spleen. Pancreas: Normal Adrenal glands: The adrenal glands are normal. Gallbladder: Minimal ground may be within the dependent gallbladder. Gallbladder is otherwise unremar kable. Kidneys: No masses are evident. No hydronephrosis is present. No cysts are present. Delayed images were obtained through the kidneys, which remain unremarkable. Aorta: Normal Inferior vena cava: Normal. CT PELVIS: Small right inguinal fat-containing hernia may be present. Loops of bowel within the abdomen and pelvis are normal. Few diverticuli are scattered within the si gmoid colon. There are loops of bowel which are incompletely distended or lack oral contrast limiti ng their evaluation. Appendix: Not clearly identified. No dilated tubular structure or inflammatory changes are evident. W hat may be the appendix appears within normal limits. Urinary bladder: Urinary bladder is unremarkable Genitourinary structures: Prostate is normal Osseous structures: No suspicious lytic or sclerotic lesions. Small bone island may be in the posteri or right medial iliac wing No fractures are evident. IMPRESSION: 1. Calcified granuloma in the liver and spleen. 2. Minimal gravel or sludge may be within the gallbladder. Gallbladder otherwise appears unremarkable . 3. Small right pleural effusion minimal left pleural effusion with some adjacent compressive atelecta sis [facility], Workstation: [email or web address], 05/31/2024 4:35 PM
[2024-05-31] MEDS: DILTIAZEM 125 MG in SODIUM CHLORIDE 0.9% 100 ML IV SCH (16:50)
[2024-05-31] MEDS: DILTIAZEM DRIP BOLUS FROM BAG 1 MG SOLN IV ONE ×3 (16:50→19:49)
[2024-05-31] MEDS ORDERED: NALOXONE 0.4 MG/ML 1 ML VIAL IV PRN (17:32)
[2024-05-31] MEDS ORDERED: ONDANSETRON 4 MG/2 ML VIAL IVP PRN (17:32)
[2024-05-31] MEDS ORDERED: MORPHINE SULFATE 4 MG/ML SYRINGE IV PRN (17:32)
[2024-05-31] MEDS: PANTOPRAZOLE 40 MG/10 ML VIAL IV SCH (18:10)
[2024-05-31] MEDS: SODIUM CHLORIDE 0.9% 1,000 ML IV SCH (18:12)
[2024-05-31] MEDS: methylPREDNISolone SOD SUCCI 125 MG/2 ML VIAL IV STA (18:16)
[2024-05-31] MEDS: IPRATROPIUM-ALBUTEROL 3 ML NEB INHALATION STA (19:25)
[2024-05-31 19:46] LABS: Appearance,Urine Clear (Clear); Bacteria,Urine Occasional /hpf; Bilirubin,Urine Negative (Negative); Blood,Urine Negative (Negative); Budding Yeast,Urine Occasional /hpf; Color,Urine Yellow; Glucose,Urine (UA) Negative (Negative); Hyaline Casts,Urine 6 /lpf (0-2); Ketones,Urine 1+ (Negative); Leukocyte Esterase,Urine Negative (Negative); Mucus,Urine Many /hpf; Nitrite,Urine Positive (Negative); PH, Urine 5.5 (5.0-8.0); Protein,Urine Trace (Negative); RBC,Urine 9 /hpf (0-5); Squamous Epithelial Cell,Urine 1 /hpf (0-4); WBC,Urine 8 /hpf (0-5)
[2024-05-31 19:52] LABS: Specific Gravity,Urine >1.050 (1.001-1.035)
[2024-05-31] MEDS ORDERED: IPRATROPIUM-ALBUTEROL 3 ML NEB INHALATION SCH (20:00)
[2024-06-01] MEDS: methylPREDNISolone SOD SUCCI 125 MG/2 ML VIAL IV SCH (00:43)
[2024-06-01 06:45] LABS: Basophils % (A) 0 %; Eosinophils % (A) 0 %; HCT 40.3 % (39.0-53.0); HGB 13.3 gm/dL (13.0-17.5); Lymphocytes # (A) 0.8 k/uL (1.0-4.8); Lymphocytes % (A) 7 %; MCH 31.4 pg (25.0-35.0); MCV 95.2 fL (80.0-100.0); Mean Platelet Volume 9.5; Monocytes # (A) 0.3 k/uL (0-1.0); Monocytes % (A) 2 %; Neutrophils # (A) 11.5 k/uL (1.3-7.7); Neutrophils % (A) 91 %; Platelet Count 124 k/uL (150-450); RBC 4.23 m/uL (4.30-5.90); RDW 13.9 % (11.5-15.5); WBC 12.7 k/uL (3.8-10.6)
[2024-06-01 07:01] LABS: ALT 48 U/L (4-49); AST 107 U/L (17-59); African American GFR (CKD) >90 (>60 ml/min/1.73 sqM); Albumin 2.7 g/dL (3.5-5.0); Alkaline Phosphatase 49 U/L (38-126); Anion Gap 5 mmol/L; Blood Urea Nitrogen 35 mg/dL (9-20); Calcium 7.7 mg/dL (8.4-10.2); Carbon Dioxide 21 mmol/L (22-30); Chloride 111 mmol/L (98-107); Glucose 152 mg/dL (74-99); Lipase 196 U/L (23-300); Magnesium 2.4 mg/dL (1.6-2.3); Non-African American GFR(CKD) 87 (>60 ml/min/1.73 sqM); Phosphorus 3.2 mg/dL (2.5-4.5); Potassium 3.8 mmol/L (3.5-5.1); Sodium 137 mmol/L (137-145); Total Bilirubin 1.3 mg/dL (0.2-1.3); Total Protein 5.5 g/dL (6.3-8.2)
[2024-06-01] MEDS: SODIUM CHLORIDE 0.9% 1,000 ML IV SCH (10:01)
--- NOTE | 2024-06-01 13:28 | P.CRDCN ---
History of Present Illness Consult date: 06/01/24 History of present illness: HISTORY OF PRESENTING ILLNESS Patient is a 79-year-old male with past medical history of atrial fibrillation, known to Dr. Chin in the past. He presented to the hospital because apparently he had a fall at the home and lost consciousness. His significant other was checking on him and he was not able to respond therefore she activated the EMS and asked them to wellness check on in. On admission to ER he was in atrial fibrillation with RVR. He was started on Cardizem drip. His heart rate is around 150s. Right bundle branch block. B13.3, WBC 12.7, BUN 35, creatinine 0.7, REVIEW OF SYSTEMS 14 point review of system is negative except what is mentioned above in HPI. PHYSICAL EXAMINATION Vital signs reviewed. Head: Normocephalic. Eyes: Sclerae nonicteric. Neck: Brisk carotid upstroke, no jugular venous distention. Lungs: Clear to auscultation. Heart: Irregularly irregular pulse Abdomen: Soft nontender, positive bowel sounds. Extremities: No edema, intact distal pulses. Neuro: Alert, oritented, no focal deficits. Detailed neuro exam was not performed. ASSESSMENT Atrial fibrillation with RVR Right bundle branch block Prior history of paroxysmal atrial fibrillation PLAN Start Eliquis 5 mg twice daily Continue Cardizem drip Start metoprolol 50 mg twice daily Give 1 dose of 500 cc bolus Obtain updated echocardiogram Continue to monitor telemetry hemodynamics electrolytes. Monitor renal function. Silver Sethi MD, FACC, RPVI Thank you for allowing [facility] to participate in this patient's care. Feel free to reach out in case of any followup questions. Past Medical History Past Medical History: Atrial Fibrillation, COPD, CVA/TIA, Hyperlipidemia, Hypertension, Pneumonia Additional Past Medical History / Comment(s): IBS History of Any Multi-Drug Resistant Organisms: None Reported Past Surgical History: Adenoidectomy, Ear Surgery, Tonsillectomy Additional Past Surgical History / Comment(s): dental surgery Past Anesthesia/Blood Transfusion Reactions: No Reported Reaction Past Psychological History: No Psychological Hx Reported Smoking Status: Former smoker Past Alcohol Use History: Occasional Past Drug Use History: None Reported - Past Family History Mother Family Medical History: Cancer, Pneumonia Additional Family Medical History / Comment(s): breast CA Father Family Medical History: Coronary Artery Disease (CAD), Myocardial Infarction ([place]) Additional Family Medical History / Comment(s): Open heart surgery in for valve repairment, of heart attack in 1997 Medications and Allergies Home Medications Medication Instructions Recorded Confirmed Type Diphenox-Atrop 2.5-0.025 mg 1 tab PO TID PRN 02/18/15 05/31/24 History [Lomotil] Lovastatin [Mevacor] 40 mg PO HS 02/18/15 05/31/24 History Apixaban [Eliquis] 5 mg PO BID #60 tab 06/24/20 05/31/24 Rx Ascorbic Acid [Vitamin C] 1,000 mg PO HS 07/28/20 05/31/24 History Alfuzosin HCl [Alfuzosin HCl ER] 10 mg PO HS 10/20/23 05/31/24 History Cholecalciferol [Vitamin D3 (25 25 mcg PO DAILY 05/31/24 05/31/24 History Mcg = 1000 Iu)] Metoprolol Tartrate [Lopressor] 25 mg PO BID 05/31/24 05/31/24 History Spironolactone [Aldactone] 25 mg PO DAILY 05/31/24 05/31/24 History Zinc Gluconate [Zinc] 50 mg PO DAILY 05/31/24 05/31/24 History lisinopriL [Zestril] 5 mg PO DAILY 05/31/24 05/31/24 History Allergies Allergy/AdvReac Type Severity Reaction Status Date / Time No Known Allergies Allergy Verified 05/31/24 17:43 Physical Exam Vitals: Vital Signs Temp Pulse Pulse Resp BP Pulse Ox 06/01/24 11:59 149 H 18 73/62 95 06/01/24 07:52 97 06/01/24 07:39 110 H 18 88/75 94 L 06/01/24 06:00 117 H 18 90/68 96 06/01/24 04:00 109 H 18 112/79 97 06/01/24 02:00 118 H 18 106/88 97 06/01/24 00:00 128 H 18 104/93 96 05/31/24 22:00 140 H 18 104/78 98 05/31/24 20:00 141 H 18 102/65 96 05/31/24 19:28 144 H 18 05/31/24 18:58 160 H 16 136/78 05/31/24 18:22 117 H 18 106/67 05/31/24 18:14 149 H 18 112/85 96 05/31/24 18:05 168 H 18 113/86 05/31/24 17:42 163 H 18 98/50 97 05/31/24 16:49 161 H 18 119/97 98 05/31/24 16:23 165 H 18 117/81 97 05/31/24 16:16 170 H 18 118/80 96 05/31/24 15:28 188 H 18 147/76 98 05/31/24 14:48 170 H 05/31/24 14:34 97.2 F L 179 H 18 135/99 80 L Intake and Output 05/31/24 06/01/24 06/01/24 22:59 06:59 14:59 Intake Total 41.333 Output Total 500 Balance -500 41.333 Intake: Intake, IV Titration 41.333 Amount Diltiazem 125 mg In 41.333 Sodium Chloride 0.9% 100 ml @ 5 MG/HR 5 mls/hr IV .Q24H [facility] Rx#:[id number] Output: Urine 500 Uretheral (Leung) 500 Results 06/01/24 06:11 06/01/24 06:11 Cardiac Enzymes 05/31/24 05/31/24 05/31/24 Range/Units 14:49 14:49 18:25 AST 137 H (17-59) U/L Troponin I <0.012 <0.012 (0.000-0.034) ng/mL 05/31/24 06/01/24 Range/Units 21:35 06:11 AST 107 H (17-59) U/L Troponin I 0.012 (0.000-0.034) ng/mL Coagulation 05/31/24 Range/Units 14:49 PT 10.8 (10.0-12.5) sec APTT 26.3 (22.0-30.0) sec CBC 05/31/24 06/01/24 Range/Units 14:49 06:11 WBC 16.4 H 12.7 H (3.8-10.6) k/uL RBC 4.74 4.23 L (4.30-5.90) m/uL Hgb 15.0 13.3 (13.0-17.5) gm/dL Hct 44.1 40.3 (39.0-53.0) % Plt Count 150 124 L (150-450) k/uL Comprehensive Metabolic Panel 05/31/24 06/01/24 Range/Units 14:49 06:11 Sodium 139 137 (137-145) mmol/L Potassium 3.7 3.8 (3.5-5.1) mmol/L Chloride 102 111 H (98-107) mmol/L Carbon Dioxide 25 21 L (22-30) mmol/L BUN 44 H 35 H (9-20) mg/dL Creatinine 0.82 0.78 (0.66-1.25) mg/dL Glucose 108 H 152 H (74-99) mg/dL Calcium 8.6 7.7 L (8.4-10.2) mg/dL AST 137 H 107 H (17-59) U/L ALT 56 H 48 (4-49) U/L Alkaline Phosphatase 59 49 (38-126) U/L Total Protein 6.5 5.5 L (6.3-8.2) g/dL Albumin 3.3 L 2.7 L (3.5-5.0) g/dL Current Medications Generic Name Dose Route Start Last Admin Trade Name Freq PRN Reason Stop Dose Admin Albuterol/Ipratropium 3 ml 05/31/24 19:26 Ipratropium-Albuterol 3 Ml Neb INHALATION RT-QID PRN Shortness Of Breath Or Wheezing Apixaban 5 mg 06/01/24 13:30 Apixaban 5 Mg Tab PO BID [facility] Protocol Ascorbic Acid 1,000 mg 06/01/24 21:00 Ascorbic Acid 500 Mg Tab PO HS [facility] Diltiazem HCl 125 mg/ Sodium 125 mls @ 5 mls/hr 05/31/24 16:00 06/01/24 01:06 Chloride IV 5 mg/hr .Q24H [facility] 5 mls/hr Administration 5 MG/HR Sodium Chloride 1,000 mls @ 150 mls/hr 06/01/24 10:50 06/01/24 10:01 Saline 0.9% IV 150 mls/hr .Q6H40M [facility] Administration Sodium Chloride 500 mls @ 999 mls/hr 06/01/24 13:18 Saline 0.9% IV 06/01/24 13:48 .Q31M ONE Methylprednisolone Sodium Succinate 60 mg 10/19/24 00:00 06/01/24 05:43 Methylprednisolone Sod Succi 125 Mg/2 Ml Vial IV 60 mg Q6HR [facility] Administration Metoprolol Tartrate 50 mg 06/01/24 13:30 Metoprolol Tartrate 50 Mg Tab PO BID [facility] Morphine Sulfate 4 mg 05/31/24 17:32 Morphine Sulfate 4 Mg/Ml Syringe IV Q4HR PRN Severe Pain (Scale 7 to 10) Naloxone HCl 0.2 mg 05/31/24 17:32 Naloxone 0.4 Mg/Ml 1 Ml Vial IV Q2M PRN Opioid Reversal Ondansetron HCl 4 mg 05/31/24 17:32 Ondansetron 4 Mg/2 Ml Vial IVP Q8HR PRN Nausea And Vomiting Tamsulosin HCl 0.4 mg 06/01/24 21:00 Tamsulosin 0.4 Mg Cap.Er.24h PO HS [facility] Intake and Output 05/31/24 06/01/24 06/01/24 22:59 06:59 14:59 Intake Total 41.333 Output Total 500 Balance -500 41.333 Intake: Intake, IV Titration 41.333 Amount Diltiazem 125 mg In 41.333 Sodium Chloride 0.9% 100 ml @ 5 MG/HR 5 mls/hr IV .Q24H [facility] Rx#:[id number] Output: Urine 500 Uretheral (Leung) 500 06/01/24 06:11 06/01/24 06:11
--- NOTE | 2024-06-01 14:05 | XR ---
EXAMINATION TYPE: XR chest 2V DATE OF EXAM: 06/01/2024 1:49 PM CLINICAL INDICATION: Male, 79 years old with history of CHF; PHH COMPARISON: Chest radiographs from 07/10/2020 TECHNIQUE: XR chest 2V Frontal view of the chest. FINDINGS: Lungs/Pleura: No evidence of focal consolidation or pneumothorax. Blunting of the costophrenic angles is present. Pulmonary vascularity: Pulmonary vascular congestion. Heart/mediastinum: Cardiomediastinal silhouette is enlarged. Musculoskeletal: No acute osseous pathology. IMPRESSION: Cardiomegaly and mild pulmonary vascular congestion. Correlate with BNP for congestive heart failure. [facility], , 06/01/2024 2:03 PM
[2024-06-01] MEDS: APIXABAN 5 MG TAB PO SCH (15:09)
[2024-06-01] MEDS: METOPROLOL TARTRATE 50 MG TAB PO SCH (15:09)
[2024-06-01] MEDS: SODIUM CHLORIDE 0.9% 500 ML 500 ML IV ONE (15:17)
[2024-06-01] MEDS ORDERED: CALCIUM CARBONATE 500 MG CHEWABLE PO PRN (20:18)
[2024-06-01] MEDS ORDERED: MELATONIN 3 MG TABLET PO PRN (20:18)
[2024-06-01] MEDS ORDERED: ACETAMINOPHEN TAB 325 MG TAB PO PRN (20:18)
[2024-06-01] MEDS ORDERED: ALPRAZolam 0.25 MG TAB PO PRN (20:18)
[2024-06-01] MEDS ORDERED: LACTULOSE 20 GM/30 ML CUP PO PRN (20:18)
[2024-06-01] MEDS ORDERED: LOPERAMIDE 2 MG CAP PO PRN (20:18)
--- NOTE | 2024-06-01 20:19 | P.HPIM ---
History of Present Illness H&P Date: 06/01/24 Chief Complaint: Feeling unwell This is a pleasant 79-year-old patient, follows with Dr. Pelayo. Chronic medical conditions include atrial fibrillation, COPD, hypertension, hyperlipidemia, IBS. She had a combined COVID and flu shot on May 14. After 1 week she got the pneumonia vaccine. For 10 days patient started feeling unwell. Decreased appetite. No fever no chills. No change in bowel pattern. Apparently patient's fianc started get hold with him. In the home care people came to check and patient was found lying on the ground covered in urine and feces. Confused I was not sure how he is got the ground. Some superficial skin breakdown. ER patient is found to be in atrial fibrillation with rapid ventricular rate. Put on a Cardizem drip. Review of systems: GEN.: Tired, decreased appetite EYES: None HEENT: None NECK: None RESPIRATORY: None CARDIOVASCULAR: No chest pain e GASTROINTESTINAL: None GENITOURINARY: Leung placed in the ER MUSCULOSKELETAL: Arthritis LYMPHATICS: None HEMATOLOGICAL: None PSYCHIATRY: None NEUROLOGICAL: None Social history: Lives alone. Has a fianc that visits him. Retired. Smoked in the past. Physical examination: VITAL SIGNS: 97.2, 179, 18, 135 x 99, 98% 2 L upon presentation GENERAL: Reclining in bed, tired EYES: Pupils equal. Conjunctiva olivia l. HEENT: External appearance of nose and ears normal, oral cavity grossly normal. NECK: JVD unable to assess; masses not palpable. HEART: Heart sounds regular l; no edema. LUNGS: Respiratory rate increased; clear to auscultation. ABDOMEN: Soft, nontender, liver spleen not palpable, no masses palpable. Leung catheter with urinary bag PSYCH: Alert and oriented x3; mood and affect normal MUSCULOSKELETAL:No Clubbing/cyanosis;muscles-grossly intact. OA NEUROLOGICAL: Cranial nerves grossly intact; no facial asymmetry, power and sensation grossly intact. LYMPHATICS: No lymph nodes palpable in the axilla and nec INVESTIGATIONS, reviewed in the clinical context: June 01, 2024: White count 12.7 hemoglobin 13.3 platelets 124 sodium 137 potassium 3.8 BUN 35 creatinine 0.78 EKG tracing personally reviewed by me-atrial fibrillation. Rate 188 Chest x-ray film personally reviewed by me-cardiomegaly. Venous prominence CT brain spine without contrast: Soft tissue swelling posterior occipital cortex. Some chronic changes. CT scan chest abdomen pelvis: Calcified granuloma in the liver and spleen. Minimal gravel or sludge in the gallbladder. Assessment plan: -Patient was found on the ground. Not sure how he got there. Patient was found here to have A-fib with rapid ventricular rate. Likely cause Telemetry -BPH with bladder outflow obstruction Alfuzosin -Persistent atrial fibrillation, rapid and controlled on presentation Eliquis. Domingo horton. Cardiology consulted. Lopressor 50 mg twice daily -COPD in a previous smoker -Hyperlipidemia Mevacor -Essential hypertension, blood pressure running on the lower side. Hold Aldactone, Zestril. On Lopressor -IBS -Full code Past Medical History Past Medical History: Atrial Fibrillation, COPD, CVA/TIA, Hyperlipidemia, Hypertension, Pneumonia Additional Past Medical History / Comment(s): IBS History of Any Multi-Drug Resistant Organisms: None Reported Past Surgical History: Adenoidectomy, Ear Surgery, Tonsillectomy Additional Past Surgical History / Comment(s): dental surgery Past Anesthesia/Blood Transfusion Reactions: No Reported Reaction Past Psychological History: No Psychological Hx Reported Smoking Status: Former smoker Past Alcohol Use History: Occasional Past Drug Use History: None Reported - Past Family History Mother Family Medical History: Cancer, Pneumonia Additional Family Medical History / Comment(s): breast CA Father Family Medical History: Coronary Artery Disease (CAD), Myocardial Infarction ([place]) Additional Family Medical History / Comment(s): Open heart surgery in [place] for valve repairment, of heart attack in 1997 Medications and Allergies Home Medications Medication Instructions Recorded Confirmed Type Diphenox-Atrop 2.5-0.025 mg 1 tab PO TID PRN 02/18/15 05/31/24 History [Lomotil] Lovastatin [Mevacor] 40 mg PO HS 02/18/15 05/31/24 History Apixaban [Eliquis] 5 mg PO BID #60 tab 06/24/20 05/31/24 Rx Ascorbic Acid [Vitamin C] 1,000 mg PO HS 07/28/20 05/31/24 History Alfuzosin HCl [Alfuzosin HCl ER] 10 mg PO HS 10/20/23 05/31/24 History Cholecalciferol [Vitamin D3 (25 25 mcg PO DAILY 05/31/24 05/31/24 History Mcg = 1000 Iu)] Metoprolol Tartrate [Lopressor] 25 mg PO BID 05/31/24 05/31/24 History Spironolactone [Aldactone] 25 mg PO DAILY 05/31/24 05/31/24 History Zinc Gluconate [Zinc] 50 mg PO DAILY 05/31/24 05/31/24 History lisinopriL [Zestril] 5 mg PO DAILY 05/31/24 05/31/24 History Allergies Allergy/AdvReac Type Severity Reaction Status Date / Time No Known Allergies Allergy Verified 05/31/24 17:43 Physical Exam Vitals: Vital Signs Temp Pulse Pulse Resp BP Pulse Ox 06/01/24 07:52 97 06/01/24 07:39 110 H 18 88/75 94 L 06/01/24 06:00 117 H 18 90/68 96 06/01/24 04:00 109 H 18 112/79 97 06/01/24 02:00 118 H 18 106/88 97 06/01/24 00:00 128 H 18 104/93 96 05/31/24 22:00 140 H 18 104/78 98 05/31/24 20:00 141 H 18 102/65 96 05/31/24 19:28 144 H 18 05/31/24 18:58 160 H 16 136/78 05/31/24 18:22 117 H 18 106/67 05/31/24 18:14 149 H 18 112/85 96 05/31/24 18:05 168 H 18 113/86 05/31/24 17:42 163 H 18 98/50 97 05/31/24 16:49 161 H 18 119/97 98 05/31/24 16:23 165 H 18 117/81 97 05/31/24 16:16 170 H 18 118/80 96 05/31/24 15:28 188 H 18 147/76 98 05/31/24 14:48 170 H 05/31/24 14:34 97.2 F L 179 H 18 135/99 80 L Intake and Output 05/31/24 06/01/24 06/01/24 22:59 06:59 14:59 Intake Total 41.333 Output Total 500 Balance -500 41.333 Intake: Intake, IV Titration 41.333 Amount Diltiazem 125 mg In 41.333 Sodium Chloride 0.9% 100 ml @ 5 MG/HR 5 mls/hr IV .Q24H [facility] Rx#:[id number] Output: Urine 500 Uretheral (Leung) 500 Results CBC & Chem 7: 06/01/24 06:11 06/01/24 06:11 Labs: Abnormal Lab Results - Last 24 Hours (Table) 05/31/24 05/31/24 05/31/24 Range/Units 14:49 14:49 14:49 WBC 16.4 H (3.8-10.6) k/uL RBC (4.30-5.90) m/uL Plt Count (150-450) k/uL Neutrophils # 14.0 H (1.3-7.7) k/uL Lymphocytes # (1.0-4.8) k/uL Chloride (98-107) mmol/L Carbon Dioxide (22-30) mmol/L BUN 44 H (9-20) mg/dL Glucose 108 H (74-99) mg/dL Plasma Lactic Acid Justin 2.4 H* (0.7-2.0) mmol/L Calcium (8.4-10.2) mg/dL Magnesium (1.6-2.3) mg/dL Total Bilirubin 2.2 H (0.2-1.3) mg/dL AST 137 H (17-59) U/L ALT 56 H (4-49) U/L Creatine Kinase 2275 H* (55-170) U/L Total Protein (6.3-8.2) g/dL Albumin 3.3 L (3.5-5.0) g/dL Ur Specific [place] (1.001-1.035) Urine Protein (Negative) Urine Ketones (Negative) Urine RBC (0-5) /hpf Urine WBC (0-5) /hpf Urine Bacteria (None) /hpf Hyaline Casts (0-2) /lpf Urine Mucus (None) /hpf Urine Yeast (Budding) (None) /hpf 05/31/24 06/01/24 06/01/24 Range/Units 19:24 06:11 06:11 WBC 12.7 H (3.8-10.6) k/uL RBC 4.23 L (4.30-5.90) m/uL Plt Count 124 L (150-450) k/uL Neutrophils # 11.5 H (1.3-7.7) k/uL Lymphocytes # 0.8 L (1.0-4.8) k/uL Chloride 111 H (98-107) mmol/L Carbon Dioxide 21 L (22-30) mmol/L BUN 35 H (9-20) mg/dL Glucose 152 H (74-99) mg/dL Plasma Lactic Acid Justin (0.7-2.0) mmol/L Calcium 7.7 L (8.4-10.2) mg/dL Magnesium 2.4 H (1.6-2.3) mg/dL Total Bilirubin (0.2-1.3) mg/dL AST 107 H (17-59) U/L ALT (4-49) U/L Creatine Kinase (55-170) U/L Total Protein 5.5 L (6.3-8.2) g/dL Albumin 2.7 L (3.5-5.0) g/dL Ur Specific [place] >1.050 H (1.001-1.035) Urine Protein Trace H (Negative) Urine Ketones 1+ H (Negative) Urine RBC 9 H (0-5) /hpf Urine WBC 8 H (0-5) /hpf Urine Bacteria Occasional H (None) /hpf Hyaline Casts 6 H (0-2) /lpf Urine Mucus Many H (None) /hpf Urine Yeast (Budding) Occasional H (None) /hpf
[2024-06-01] MEDS: TAMSULOSIN 0.4 MG CAP.ER.24H PO SCH (21:39)
[2024-06-01] MEDS: ATORVASTATIN 10 MG TAB PO SCH (21:40)
[2024-06-01] MEDS: ASCORBIC ACID 500 MG TAB PO SCH (21:40)
--- NOTE | 2024-06-02 09:28 | P.PN ---
Subjective Progress Note Date: 06/02/24 HISTORY OF PRESENTING ILLNESS Patient is a 79-year-old male with past medical history of atrial fibrillation, known to Dr. Chin in the past. He presented to the hospital because apparently he had a fall at the home and lost consciousness. His significant other was checking on him and he was not able to respond therefore she activated the EMS and asked them to wellness check on in. On admission to ER he was in atrial fibrillation with RVR. He was started on Cardizem drip. His heart rate is around 150s. Right bundle branch block. B13.3, WBC 12.7, BUN 35, creatinine 0.7, Progress note 06/02/2024 Today's visit he continues to be in atrial fibrillation with RVR with heart rates around 140s to 150s. His blood pressure is softer today. He continues to have mild confusion. Unknown baseline status. PHYSICAL EXAMINATION Vital signs reviewed. Head: Normocephalic. Eyes: Sclerae nonicteric. Neck: Brisk carotid upstroke, elevated jugular venous distention. Lungs: Mild crackles audible in lungs Heart: Irregularly irregular pulse Abdomen: Soft nontender, positive bowel sounds. Extremities: No edema, intact distal pulses. Neuro: Alert, oritented, no focal deficits. Detailed neuro exam was not performed. ASSESSMENT Atrial fibrillation with RVR Mild HFpEF exacerbation Right bundle branch block Prior history of paroxysmal atrial fibrillation Metabolic encephalopathy PLAN Heart rate continues to be high with systolic blood pressure soft around 90 mmHg. His JVD is elevated. No lower extremity swelling. Chest x-ray shows mild pulmonary congestion. Due to this I will discontinue his Cardizem drip. Start him on amiodarone drip with 150 mg amiodarone bolus. Start Lasix 40 mg IV daily reevaluate tomorrow based on kidney function. If no response in next 1 to 2 days, consider ZENAIDA cardioversion Repeat CBC CMP and magnesium levels tomorrow Obtain updated echocardiogram Continue to monitor telemetry hemodynamics electrolytes. Monitor renal function. Objective - Vital Signs Vital signs: Vital Signs Temp 97.5 F L 06/02/24 07:25 Pulse 112 H 06/02/24 07:25 Resp 20 06/02/24 07:25 BP 93/61 06/02/24 07:25 Pulse Ox 92 L 06/02/24 07:25 FiO2 Intake & Output 06/01/24 06/02/24 06/02/24 18:59 06:59 18:59 Intake Total 0 Output Total 500 125 Balance -500 -125 Intake: Intake, IV Titration 0 Amount Diltiazem 125 mg In 0 Sodium Chloride 0.9% 100 ml @ 5 MG/HR 5 mls/hr IV .Q24H [facility] Rx#:[id number] Output: Urine 500 125 Uretheral (Leung) 500 125 - Labs CBC & Chem 7: 06/01/24 06:11 06/01/24 06:11
[2024-06-02] MEDS: DEXTROSE 5% IN WATER 100 ML with AMIODARONE 150 MG IV ONE (10:40)
[2024-06-02] MEDS: AMIODARONE 360 MG in DEXTROSE 5% IN WATER 200 ML IV ONE (10:40)
[2024-06-02] MEDS: FUROSEMIDE 10 MG/ML 4 ML VIAL IV SCH (10:50)
[2024-06-02 11:32] LABS: ALT 64 U/L (4-49); AST 101 U/L (17-59); African American GFR (CKD) >90 (>60 ml/min/1.73 sqM); Albumin 2.8 g/dL (3.5-5.0); Alkaline Phosphatase 55 U/L (38-126); Anion Gap 7 mmol/L; Blood Urea Nitrogen 37 mg/dL (9-20); Calcium 7.9 mg/dL (8.4-10.2); Carbon Dioxide 18 mmol/L (22-30); Chloride 112 mmol/L (98-107); Glucose 184 mg/dL (74-99); Magnesium 2.4 mg/dL (1.6-2.3); Non-African American GFR(CKD) 86 (>60 ml/min/1.73 sqM); Potassium 4.4 mmol/L (3.5-5.1); Sodium 137 mmol/L (137-145); Total Bilirubin 1.3 mg/dL (0.2-1.3); Total Protein 5.8 g/dL (6.3-8.2)
[2024-06-02] MEDS: AMIODARONE 450 MG in DEXTROSE 5% IN WATER 250 ML IV SCH (16:15)
--- NOTE | 2024-06-02 16:18 | P.PN ---
Progress Note - Text Progress Note Date: 06/02/24 Chief Complaint: Feeling unwell This is a pleasant 79-year-old patient, follows with Dr. Pelayo. Chronic medical conditions include atrial fibrillation, COPD, hypertension, hyperlipidemia, IBS. She had a combined COVID and flu shot on May 14. After 1 week she got the pneumonia vaccine. For 10 days patient started feeling unwell. Decreased appetite. No fever no chills. No change in bowel pattern. Apparently patient's fianc started get hold with him. In the home care people came to check and patient was found lying on the ground covered in urine and feces. Confused I was not sure how he is got the ground. Some superficial skin breakdown. ER patient is found to be in atrial fibrillation with rapid ventricular rate. Put on a Cardizem drip. June 02: Patient overflowing the ER. A-fib still uncontrolled. Seen by Dr. Sethi earlier. Cardizem drip being discontinued. Started out IV amiodarone drip. Also IV Lasix. Eating fair. Active Medications Acetaminophen (Acetaminophen Tab 325 Mg Tab) 650 mg PO Q6HR PRN PRN Reason: Mild Pain or Fever > 100.5 Albuterol/Ipratropium (Ipratropium-Albuterol 3 Ml Neb) 3 ml INHALATION RT-QID PRN PRN Reason: Shortness Of Breath Or Wheezing Alprazolam (Alprazolam 0.25 Mg Tab) 0.25 mg PO Q6HR PRN PRN Reason: Anxiety Apixaban (Apixaban 5 Mg Tab) 5 mg PO BID [facility]; Protocol Last Admin: 06/02/24 09:10 Dose: 5 mg Ascorbic Acid (Ascorbic Acid 500 Mg Tab) 1,000 mg PO HS [facility] Last Admin: 06/01/24 21:40 Dose: 1,000 mg Atorvastatin Calcium (Atorvastatin 10 Mg Tab) 10 mg PO HS [facility] Last Admin: 06/01/24 21:40 Dose: 10 mg Calcium Carbonate/Glycine (Calcium Carbonate 500 Mg Chewable) 1,000 mg PO Q4HR PRN PRN Reason: Dyspepsia Furosemide (Furosemide 10 Mg/Ml 4 Ml Vial) 40 mg IV DAILY [facility] Last Admin: 06/02/24 10:50 Dose: 40 mg Amiodarone HCl 450 mg/ (Dextrose/Water) 250 mls @ 16.667 mls/hr IV .Q15H [facility]; Protocol Stop: 06/03/24 09:59 Last Admin: 06/02/24 16:15 Dose: 0.5 mg/min, 16.667 mls/hr Lactulose (Lactulose 20 Gm/30 Ml Cup) 20 gm PO DAILY PRN PRN Reason: Constipation Loperamide HCl (Loperamide 2 Mg Cap) 2 mg PO Q2HR PRN PRN Reason: Loose Stool Melatonin (Melatonin 3 Mg Tablet) 3 mg PO HS PRN PRN Reason: Insomnia Methylprednisolone Sodium Succinate (Methylprednisolone Sod Succi 125 Mg/2 Ml Vial) 60 mg IV Q6HR [facility] Last Admin: 06/02/24 10:51 Dose: 60 mg Metoprolol Tartrate (Metoprolol Tartrate 50 Mg Tab) 50 mg PO BID [facility] Last Admin: 06/02/24 09:10 Dose: 50 mg Naloxone HCl (Naloxone 0.4 Mg/Ml 1 Ml Vial) 0.2 mg IV Q2M PRN PRN Reason: Opioid Reversal Ondansetron HCl (Ondansetron 4 Mg/2 Ml Vial) 4 mg IVP Q8HR PRN PRN Reason: Nausea And Vomiting Tamsulosin HCl (Tamsulosin 0.4 Mg Cap.Er.24h) 0.4 mg PO HS [facility] Last Admin: 06/01/24 21:39 Dose: 0.4 mg Social history: Lives alone. Has a fianc that visits him. Retired. Smoked in the past. Physical examination: VITAL SIGNS: 98.9, 123, 20, 95 x 35, 96% room air GENERAL: Reclining in bed, eating EYES: Pupils equal. Conjunctiva olivia l. HEENT: External appearance of nose and ears normal, oral cavity grossly normal. NECK: JVD unable to assess; masses not palpable. HEART: Heart sounds irregular; no edema. LUNGS: Respiratory rate increased; clear to auscultation. ABDOMEN: Soft, nontender, liver spleen not palpable, no masses palpable. Leung catheter with urinary bag PSYCH: Answering questions MUSCULOSKELETAL:No Clubbing/cyanosis;muscles-grossly intact. OA INVESTIGATIONS, reviewed in the clinical context: June 02: Sodium 137 potassium 4.4 creatinine 0.81 June 01, 2024: White count 12.7 hemoglobin 13.3 platelets 124 sodium 137 potassium 3.8 BUN 35 creatinine 0.78 EKG tracing personally reviewed by me-atrial fibrillation. Rate 188 Chest x-ray film personally reviewed by me-cardiomegaly. Venous prominence CT brain spine without contrast: Soft tissue swelling posterior occipital cortex. Some chronic changes. CT scan chest abdomen pelvis: Calcified granuloma in the liver and spleen. Minimal gravel or sludge in the gallbladder. Assessment plan: -Patient was found on the ground. Not sure how he got there. Patient was found here to have A-fib with rapid ventricular rate. Likely cause Telemetry -BPH with bladder outflow obstruction Alfuzosin -Persistent atrial fibrillation, rapid and uncontrolled: Remains uncontrolled Eliquis. Cardizem drip being discontinued. Cardiology following IV amiodarone being started Lopressor 50 mg twice daily -COPD in a previous smoker -Hyperlipidemia Mevacor -Essential hypertension, blood pressure running on the lower side. Hold Aldactone, Zestril. On Lopressor -IBS -Full code IV Cardizem being discontinued. IV amiodarone started. IV Lasix. IV Solu- Medrol was started in the ER. Discontinue the same. Past Medical History Past Medical History: Atrial Fibrillation, COPD, CVA/TIA, Hyperlipidemia, Hypertension, Pneumonia Additional Past Medical History / Comment(s): IBS History of Any Multi-Drug Resistant Organisms: None Reported Past Surgical History: Adenoidectomy, Ear Surgery, Tonsillectomy Additional Past Surgical History / Comment(s): dental surgery Past Anesthesia/Blood Transfusion Reactions: No Reported Reaction Past Psychological History: No Psychological Hx Reported Smoking Status: Former smoker Past Alcohol Use History: Occasional Past Drug Use History: None Reported
[2024-06-03 07:30] LABS: African American GFR (CKD) >90 (>60 ml/min/1.73 sqM); Anion Gap 5 mmol/L; Blood Urea Nitrogen 38 mg/dL (9-20); Carbon Dioxide 24 mmol/L (22-30); Chloride 108 mmol/L (98-107); Glucose 146 mg/dL (74-99); Non-African American GFR(CKD) 85 (>60 ml/min/1.73 sqM); Potassium 3.7 mmol/L (3.5-5.1); Sodium 137 mmol/L (137-145)
[2024-06-03 08:50] LABS: Basophils % (A) 0 %; Eosinophils % (A) 0 %; HCT 40.5 % (39.0-53.0); HGB 13.1 gm/dL (13.0-17.5); Hypochromasia Slight; Lymphocytes % (A) 6 %; MCH 31.8 pg (25.0-35.0); MCHC 32.4 g/dL (31.0-37.0); MCV 98.2 fL (80.0-100.0); Mean Platelet Volume 9.8; Monocytes # (A) 0.7 k/uL (0-1.0); Monocytes % (A) 4 %; Neutrophils # (A) 15.9 k/uL (1.3-7.7); Neutrophils % (A) 90 %; Platelet Count 158 k/uL (150-450); RBC 4.12 m/uL (4.30-5.90); RDW 13.4 % (11.5-15.5); WBC 17.7 k/uL (3.8-10.6)
[2024-06-03 09:01] LABS: ALT 63 U/L (4-49); AST 71 U/L (17-59); Creatine Kinase 582 U/L (55-170)
[2024-06-03] MEDS: FUROSEMIDE 40 MG TAB PO SCH (09:57)
--- NOTE | 2024-06-03 10:20 | CDI ---
Documentation Clarification Form Date: From: Isabel Sosa RN CCDS Phone: [phone] Admit Date: 05/31/2024 05:32:00 PM Patient Name: Guilel Hunter Visit Number: [id number] Discharge Date: ATTENTION: The Clinical Documentation Specialists (CDI) and [facility] Coding Staff appreciate your assistance in clarifying documentation. Please respond to the clarification below the line at the bottom and electronically sign. The CDI & [facility] Coding staff will review the response and follow-up if needed. Please note: Queries are made part of the Legal Health Record. If you have any questions, please contact the author of this message via ITS. Doctor/Provider: Jesse Sosa MD: Rhabdomyolysis is documented in the ED note 05/31 but is not noted in subsequent documentation. Clarification is requested. History/Risk Factors: 79-year-old male with a history of Afib, COPD, HTN, IBS who presented after being found down for unknown amount of time Clinical Indicators: 05/31 ED, HPI: found down for about 2 days." Clinical Impression: "Weakness, Atrial fibrillation with RVR, Rhabdomyolysis, Acute renal failure, Dehydration, Hypoxia, Acute bronchitis with COPD" 06/01 H&P, HPI: "Apparently patient's fianc started get hold with him. In the home care people came to check and patient was found lying on the ground covered in urine and feces. Confused I was not sure how he is got the ground." 05/31-06/03 BUN: 44, 35, 37, 38 Creatinine: 0.82, 0.78, 0.81, 0.82 05/31, 06/03 Creatine Kinase: 2275, 582 Treatment: Normal Saline IV 1000cc bolus X2 on 05/31 and once on 06/01 then 150cc/hour 05/31-06/01 Please clarify the specificity of the Rhabdomyolysis: [ ] Traumatic rhabdomyolysis due to fall confirmed, remains under treatment [ + ] Traumatic Rhabdomyolysis confirmed, resolved [ ] Rhabdomyolysis ruled out [ ] Other condition, please specify [ ] Unable to determine MTDD
[2024-06-03] MEDS: AMIODARONE 360 MG in DEXTROSE 5% IN WATER 200 ML IV SCH (11:25)
--- NOTE | 2024-06-03 13:01 | CA ---
Transthoracic Echo Report Name: Guille Hunter Age: 79 Gender: M : 1945 Exam Date: 06/03/2024 10:42 Exam Location: [place] [facility] Ht (in): 75 Wt (lb): 215 Ordering Physician: Silver Sethi MD ([id number]) Attending/Referring Phys: Telephone Solicitor Supervisor Marylou Fuller RDCS Procedure CPT: Indications: chf afib Cardiac Hx: Technical Quality: Fair Contrast 1: Total Dose (mL): Contrast 2: Total Dose (mL): MEASUREMENTS (Male / Female) Normal Values 2D ECHO LV Diastolic Diameter PLAX 5.2 cm 4.2 - 5.9 / 3.9 - 5.3 cm LV Systolic Diameter PLAX 4.2 cm IVS Diastolic Thickness 1.1 cm 0.6 - 1.0 / 0.6 - 0.9 cm LVPW Diastolic Thickness 1.2 cm 0.6 - 1.0 / 0.6 - 0.9 cm LV Relative Wall Thickness 0.4 RV Internal Dim ED PLAX 3.2 cm LA Volume 131.5 cm??? 18 - 58 / 22 - 52 cm??? LA Volume Index 57.6 cm???/m??? 16 - 28 cm???/m??? M-MODE Aortic Root Diameter MM 4.0 cm LA Systolic Diameter MM 4.9 cm LA Ao Ratio MM 1.2 AV Cusp Separation MM 2.3 cm DOPPLER AV Peak Velocity 86.8 cm/s AV Peak Gradient 3.0 mmHg AV Mean Velocity 53.4 cm/s AV Mean Gradient 1.4 mmHg AV Velocity Time Integral 12.4 cm AI Peak Velocity 299.2 cm/s AI Peak Gradient 35.8 mmHg AI Pressure Half Time 353.2 ms LVOT Peak Velocity 64.5 cm/s LVOT Peak Gradient 1.7 mmHg LVOT Velocity Time Integral 10.9 cm MV Area PHT 3.8 cm??? Mitral E Point Velocity 95.2 cm/s Mitral A Point Velocity 0.2 cm/s Mitral E to A Ratio 429.2 MV Deceleration Time 198.4 ms MV E' Velocity 6.3 cm/s Mitral E to MV E' Ratio 15.1 TR Peak Velocity 220.5 cm/s TR Peak Gradient 19.4 mmHg Right Ventricular Systolic Press 23.7 mmHg FINDINGS Left Ventricle Mildly increased left ventricular wall thickness. Left ventricular cavity size normal.moderately reduced global left ventricular systolic function. Left ventricular ejection fraction is estimated at 30-35 %. Right Ventricle Normal right ventricular size. Right Atrium Mild right atrial dilatation. Left Atrium Severely increased left atrial volume. Mildly increased left atrial area. Mitral Valve Structurally normal mitral valve. Mild mitral annular calcification. Moderate mitral regurgitation. Aortic Valve Trileaflet aortic valve. No aortic stenosis. Mild aortic regurgitation. Tricuspid Valve Structurally normal tricuspid valve. Mild tricuspid regurgitation. Pulmonic Valve Structurally normal pulmonic valve. Trace to mild pulmonic regurgitation. Pericardium No pericardial effusion. Aorta Mild aortic dilatation at the level of the sinuses of valsalva (root). CONCLUSIONS LV size is normal there is moderate concentric LVH with the global decrease in contractility and estimated ejection fraction of 35%. Both atria specifically left atrium is enlarged. There is mitral annular calcification and aortic valve sclerosis with mild to moderate regurgitation. No significant pulmonary hypertension. No pericardial effusion Previewed by: Dr. Willis Hilton MD (Electronically Signed) Final Date: 03 June 2024 13:00
[2024-06-03] MEDS ORDERED: MIDAZOLAM 2 MG/2 ML VIAL IV PRN (13:19)
[2024-06-03] MEDS ORDERED: fentaNYL (PF) 50 MCG/ML 2 ML AMP IVP PRN (13:19)
[2024-06-03] MEDS ORDERED: BENZOCAINE SPRAY 1 CAN TOPICAL PRN (13:19)
--- NOTE | 2024-06-03 13:25 | P.PN ---
Subjective Progress Note Date: 06/03/24 HISTORY OF PRESENTING ILLNESS Patient is a 79-year-old male with past medical history of atrial fibrillation, known to Dr. Chin in the past. He presented to the hospital because apparently he had a fall at the home and lost consciousness. His significant other was checking on him and he was not able to respond therefore she activated the EMS and asked them to wellness check on in. On admission to ER he was in atrial fibrillation with RVR. He was started on Cardizem drip. His heart rate is around 150s. Right bundle branch block. B13.3, WBC 12.7, BUN 35, creatinine 0.7, Progress note 06/02/2024 Today's visit he continues to be in atrial fibrillation with RVR with heart rates around 140s to 150s. His blood pressure is softer today. He continues to have mild confusion. Unknown baseline status. 06/03 Patient is currently on amiodarone drip at 0.5 mg/min. He remains in atrial fibrillation in the 130s and is feeling lousy. He is also on IV Lasix 40 mg daily. Discussed option of cardioversion tomorrow which patient is in agreement. Blood pressure 131/86, heart rate 130, pulse ox 94% on room air. Repeat blood work reveals WBC 17.7, hemoglobin 13.1. Creatinine 0.82. Potassium 3.7. CK5 182. TSH 1.19. Echocardiogram reveals EF of 35%, moderate concentric left ventricular hyp ertrophy. Both atria specifically left atrium is enlarged. There is mitral annular calcifications and aortic valve sclerosis with mild to moderate regurgitation. No significant pulmonary hypertension. No pericardial effusion. PHYSICAL EXAMINATION Vital signs reviewed. Head: Normocephalic. Eyes: Sclerae nonicteric. Neck: Brisk carotid upstroke, elevated jugular venous distention. Lungs: Lungs clear to auscultation Heart: Irregularly irregular pulse Abdomen: Soft nontender, positive bowel sounds. Extremities: No edema, intact distal pulses. Neuro: Alert, oritented, no focal deficits. Detailed neuro exam was not performed. ASSESSMENT Atrial fibrillation with RVR Mild HFpEF exacerbation Right bundle branch block Prior history of paroxysmal atrial fibrillation Metabolic encephalopathy PLAN Continue amiodarone drip and increase to 1 mg/min for the next 24 hours, until patient has cardioversion. Schedule patient for cardioversion along with ZENAIDA at [address] Chin Transition IV Lasix to oral 40 mg daily Continue to monitor telemetry hemodynamics electrolytes. Monitor renal function. Nurse practitioner note has been reviewed, I agree with documented findings and plan of care. Patient was seen and examined. Objective - Vital Signs Vital signs: Vital Signs Temp 98.3 F 06/03/24 03:34 Pulse 89 06/03/24 03:34 Resp 18 06/03/24 03:34 BP 101/77 06/03/24 03:34 Pulse Ox 93 L 06/03/24 03:34 FiO2 Intake & Output 06/02/24 06/03/24 06/03/24 18:59 06:59 18:59 Intake Total 270.56 Balance 270.56 Weight 100.5 kg Intake: IV 30 Invasive Line 2 20 Invasive Line 3 10 Intake, IV Titration 240.56 Amount Amiodarone 450 mg In 240.56 Dextrose 5% in Water 250 ml @ 0.5 MG/MIN 16.667 mls/hr IV .Q15H [facility] Rx#: [id number] Other: Voiding Method Indwelling Catheter - Labs CBC & Chem 7: 06/03/24 06:24 06/03/24 06:24 Labs: Abnormal Lab Results - Last 24 Hours (Table) 06/02/24 06/03/24 06/03/24 Range/Units 10:19 06:24 06:24 WBC 17.7 H (3.8-10.6) k/uL RBC 4.12 L (4.30-5.90) m/uL Neutrophils # 15.9 H (1.3-7.7) k/uL Chloride 112 H 108 H (98-107) mmol/L Carbon Dioxide 18 L (22-30) mmol/L BUN 37 H 38 H (9-20) mg/dL Glucose 184 H 146 H (74-99) mg/dL Calcium 7.9 L 8.0 L (8.4-10.2) mg/dL Magnesium 2.4 H (1.6-2.3) mg/dL AST 101 H (17-59) U/L ALT 64 H (4-49) U/L Creatine Kinase (55-170) U/L Total Protein 5.8 L (6.3-8.2) g/dL Albumin 2.8 L (3.5-5.0) g/dL 06/03/24 Range/Units 06:24 WBC (3.8-10.6) k/uL RBC (4.30-5.90) m/uL Neutrophils # (1.3-7.7) k/uL Chloride (98-107) mmol/L Carbon Dioxide (22-30) mmol/L BUN (9-20) mg/dL Glucose (74-99) mg/dL Calcium (8.4-10.2) mg/dL Magnesium (1.6-2.3) mg/dL AST 71 H (17-59) U/L ALT 63 H (4-49) U/L Creatine Kinase 582 H (55-170) U/L Total Protein (6.3-8.2) g/dL Albumin (3.5-5.0) g/dL
--- NOTE | 2024-06-03 14:53 | P.CN ---
Psychiatric Consult - . Consult date: 06/03/24 Consult:: 06/03/24 14:00 IDENTIFYING DATA: This patient is a 79-year-old male, current lives alone in a house, he is single, he has 2 kids he is retired from the REASON FOR REFERRAL: Psychiatry was consulted for psychiatric evaluation HISTORY OF PRESENT ILLNESS: The patient presented to the hospital on 05/31 for generalized weakness difficulty walking found down for about 2 days in his house. Patient apparently has a history of atrial fibrillation CVA and COPD. He was confused when he came into the hospital. WBCs and ANC use were elevated. LFTs were also elevated. Patient's nurse claims that patient's son is attem pting to get guardianship as there is significant complaints about patient's wellbeing at home unable to take care of himself and cook or clean in his home. back up worker also brought up concern that patient has been giving away a lot of money to different women that are younger than him closer towards the city and they are using him for money. Patient was seen laying in bed today, agreeable to speak to keno writer. He was alert and oriented to name age, place however believes that it was June 07 today. He claims that he had a fall at home and that he was feeling "unwell". He also claims that he has a girlfriend that he has been "on and off with" and states that he is not feeling well about it. Claims that his sleep and appetite have been on and off. Was downplaying any depression, he appeared to have fairly poor insight and poor judgment about his situation. He is not endorsing any paranoia. At this time patient denies any suicidal or homical ideations, intent or plan. Patient denies any auditory, visual hallucinations and denies any paranoia or delusions. Patients admits to using no recreational drugs or cigarettes PAST PSYCHIATRIC HISTORY: Patient has a a history of dementia. Patient denies being on any psychiatric medications. Patient denies any previous psychiatric hospitalizations. Patient denies any psychiatric outpatient follow-up. Patient denies any history of suicide attempts in the past. PAST MEDICAL HISTORY:Past Medical History: Atrial Fibrillation, COPD, CVA/TIA, Hyperlipidemia, Hypertension, Pneumonia Additional Past Medical History / Comment(s): IBS History of Any Multi-Drug Resistant Organisms: None Reported Past Surgical History: Adenoidectomy, Ear Surgery, Tonsillectomy Additional Past Surgical History / Comment(s): dental surgery Past Anesthesia/Blood Transfusion Reactions: No Reported Reaction Past Psychological History: No Psychological Hx Reported Smoking Status: Former smoker Past Alcohol Use History: Occasional Past Drug Use History: None Reported ALLERGIES: as per EMR. CHEMICAL DEPENDENCY HISTORY: as per HPI. FAMILY PSYCHIATRIC/SUBSTANCE USE HISTORY: Denies SOCIAL HISTORY: Patient was born and raised in [place], claims that he almost completed his [employer] degree. States that he used to work as a copier repair technician and other jobs in the [employer] and retired from [employer] in 2019. Claims that he has never been to prison or custodial. He states that he is single he has 2 kids and he currently lives in a house alone. No guardian MENTAL STATUS EXAM: General Appearance: Patient appears to be tall, stated age is alert, attempts to cooperate, evasive and rambles at times. Patient appears to have fair hygiene and grooming wearing hospital gown with fair eye contact. Behavior: Patient is calmly lying in bed without any agitated behavior. Evasive and vague Speech: Patient's speech is fluent and nonpressured. Rambles Mood/Affect: Patient reports their mood is "okay", affect is incongruent Suicidality/Homicidality: Patient denies having any suicidal or homicidal ideation intent or plan. Perceptions: Patient denies any visual hallucinations and denies any auditory hallucinations Though content/process: There is no evidence of any delusional thought content. Rambles at times, poverty of content Memory and concentration: AOX2, does not know today's date. Memory recall 2 out of 3 words after 5 minutes. Cannot spell "WORLD" backwards Judgment and insight: Limited/poor IMPRESSIONS: Neurocognitive disorder unspecified Adjustment disorder PLAN: -At this time patient DOES NOT meet criteria for inpatient psychiatric admission. -Patient DOES NOT have general decision making capacity at this time and is unable to reason through and communicate/appreciate the risks, benefits and alternatives to treatment. would advise that family member go through with filing for gaurdianship to help with care, decisions and disposition. -Delirium precautions recommended with patient including - avoiding use of narcotics and DEPUTY BUILDING GUARD sedatives, limit anticholinergic medications when possible, frequent re-orientation, minimize use of restraints, open window shades during the day and close them at night -Would recommend the following medication changes/additions: Remeron 7.5 mg nightly for sleep/mood/appetite -back up worker to provide patient with outpatient mental health/psychiatry resources for appropriate follow up upon discharge -Communicated plan to patient's nurse -Psychiatry will sign off at this time -Please contact with any questions. 06/03/24 14:46
--- NOTE | 2024-06-03 20:39 | P.PN ---
Progress Note - Text Progress Note Date: 06/03/24 Chief Complaint: Feeling unwell This is a pleasant 79-year-old patient, follows with Dr. Pelayo. Chronic medical conditions include atrial fibrillation, COPD, hypertension, hyperlipidemia, IBS. She had a combined COVID and flu shot on May 14. After 1 week she got the pneumonia vaccine. For 10 days patient started feeling unwell. Decreased appetite. No fever no chills. No change in bowel pattern. Apparently patient's fianc started get hold with him. In the home care people came to check and patient was found lying on the ground covered in urine and feces. Confused I was not sure how he is got the ground. Some superficial skin breakdown. ER patient is found to be in atrial fibrillation with rapid ventricular rate. Put on a Cardizem drip. June 02: Patient overflowing the ER. A-fib still uncontrolled. Seen by Dr. Sethi earlier. Cardizem drip being discontinued. Started out IV amiodarone drip. Also IV Lasix. Eating fair. June 03: Steroids were discontinued yesterday. Patient delirium is a bit better today. Patient can tell me that he is in the hospital. He knows the name the year the season. He knows that [employer] and [employer] are running for the president. He tells me that he was engaged to his girlfriend but now engagement has been over. I spoke to patient's son today. I am also getting a speech consultation for a more formal heart function evaluation. Psychiatry also was consulted for the same. Dr. Cagle saw the patient and did not feel the patient has higher functioning executive functions. I did speak to the son saying that he should apply for guardianship. Patient does have basic understanding of things. A-fib remains uncontrolled. Remains on amiodarone drip. Patient is probably been getting set up for cardioversion along with ZENAIDA tomorrow. Active Medications Acetaminophen (Acetaminophen Tab 325 Mg Tab) 650 mg PO Q6HR PRN PRN Reason: Mild Pain or Fever > 100.5 Albuterol/Ipratropium (Ipratropium-Albuterol 3 Ml Neb) 3 ml INHALATION RT-QID PRN PRN Reason: Shortness Of Breath Or Wheezing Alprazolam (Alprazolam 0.25 Mg Tab) 0.25 mg PO Q6HR PRN PRN Reason: Anxiety Apixaban (Apixaban 5 Mg Tab) 5 mg PO BID [facility]; Protocol Last Admin: 06/03/24 09:57 Dose: 5 mg Ascorbic Acid (Ascorbic Acid 500 Mg Tab) 1,000 mg PO HS [facility] Last Admin: 06/02/24 23:51 Dose: 1,000 mg Atorvastatin Calcium (Atorvastatin 10 Mg Tab) 10 mg PO HS [facility] Last Admin: 06/02/24 23:51 Dose: 10 mg Benzocaine (Benzocaine [place] 1 Can) 1 spray TOPICAL TID PRN PRN Reason: Skin Irritation Calcium Carbonate/Glycine (Calcium Carbonate 500 Mg Chewable) 1,000 mg PO Q4HR PRN PRN Reason: Dyspepsia Fentanyl Citrate (Fentanyl (Pf) 50 Mcg/Ml 2 Ml Amp) 50 mcg IVP ONCE PRN PRN Reason: Pre-Op Stop: 06/04/24 07:20 Furosemide (Furosemide 40 Mg Tab) 40 mg PO DAILY [facility] Last Admin: 06/03/24 09:57 Dose: 40 mg Amiodarone HCl 360 mg/ (Dextrose/Water) 200 mls @ 33.333 mls/hr IV .Q6H [facility]; Protocol Stop: 06/04/24 11:00 Last Admin: 06/03/24 17:51 Dose: 1 mg/min, 33.333 mls/hr Lactulose (Lactulose 20 Gm/30 Ml Cup) 20 gm PO DAILY PRN PRN Reason: Constipation Loperamide HCl (Loperamide 2 Mg Cap) 2 mg PO Q2HR PRN PRN Reason: Loose Stool Melatonin (Melatonin 3 Mg Tablet) 3 mg PO HS PRN PRN Reason: Insomnia Metoprolol Tartrate (Metoprolol Tartrate 50 Mg Tab) 50 mg PO BID [facility] Last Admin: 06/03/24 09:57 Dose: 50 mg Midazolam HCl (Midazolam 2 Mg/2 Ml Vial) 1 mg IV ONCE PRN PRN Reason: Pre-Op Stop: 06/04/24 07:20 Mirtazapine (Mirtazapine 15 Mg Tab) 7.5 mg PO HS [facility] Naloxone HCl (Naloxone 0.4 Mg/Ml 1 Ml Vial) 0.2 mg IV Q2M PRN PRN Reason: Opioid Reversal Ondansetron HCl (Ondansetron 4 Mg/2 Ml Vial) 4 mg IVP Q8HR PRN PRN Reason: Nausea And Vomiting Tamsulosin HCl (Tamsulosin 0.4 Mg Cap.Er.24h) 0.4 mg PO [facility] Last Admin: 06/02/24 23:52 Dose: 0.4 mg Social history: Lives alone. Has a fianc that visits him. Retired. Smoked in the past. Physical examination: VITAL SIGNS: 97.2, 125, 18, 131 x 86, 94% room air GENERAL: Reclining in bed, comfortable EYES: Pupils equal. Conjunctiva olivia l. HEENT: External appearance of nose and ears normal, oral cavity grossly normal. NECK: JVD unable to assess; masses not palpable. HEART: Heart sounds irregular; no edema. LUNGS: Respiratory rate increased; clear to auscultation. ABDOMEN: Soft, nontender, liver spleen not palpable, no masses palpable. Leung catheter with urinary bag PSYCH: Able to answer basic questions. MUSCULOSKELETAL:No Clubbing/cyanosis;muscles-grossly intact. OA INVESTIGATIONS, reviewed in the clinical context: June 03: White count 7.7 hemoglobin 13.1 platelets 158 potassium 3.7 creatinine 0.82 AST 71 ALT 63 TSH 1.19 June 02: Sodium 137 potassium 4.4 creatinine 0.81 June 01, 2024: White count 12.7 hemoglobin 13.3 platelets 124 sodium 137 potassium 3.8 BUN 35 creatinine 0.78 EKG tracing personally reviewed by me-atrial fibrillation. Rate 188 Chest x-ray film personally reviewed by me-cardiomegaly. Venous prominence CT brain spine without contrast: Soft tissue swelling posterior occipital cortex. Some chronic changes. CT scan chest abdomen pelvis: Calcified granuloma in the liver and spleen. Minimal gravel or sludge in the gallbladder. Assessment plan: -Patient was found on the ground. Not sure how he got there. Patient was found here to have A-fib with rapid ventricular rate. Likely cause Telemetry -BPH with bladder outflow obstruction Alfuzosin -Persistent atrial fibrillation, rapid and uncontrolled: Remains uncontrolled Eliquis. Cardizem drip-discontinued. Cardiology following IV amiodarone being continued Lopressor 50 mg twice daily Plan for ZENAIDA with cardioversion tomorrow -COPD in a previous smoker -Hyperlipidemia Mevacor -Essential hypertension, blood pressure running on the lower side. Hold Aldactone, Zestril. On Lopressor -IBS -Full code -Cognitive impairment. Evaluated by psychiatry Dr. Cagle. Patient not able to do higher functions. Patient's son is looking into guardianship Speech consulted for formal memory testing. Some executive functions. IV amiodarone. Plan for cardioversion tomorrow. Speech consulted for higher mental function assessment. Formal testing Past Medical History Past Medical History: Atrial Fibrillation, COPD, CVA/TIA, Hyperlipidemia, Hypertension, Pneumonia Additional Past Medical History / Comment(s): IBS History of Any Multi-Drug Resistant Organisms: None Reported Past Surgical History: Adenoidectomy, Ear Surgery, Tonsillectomy Additional Past Surgical History / Comment(s): dental surgery Past Anesthesia/Blood Transfusion Reactions: No Reported Reaction Past Psychological History: No Psychological Hx Reported Smoking Status: Former smoker Past Alcohol Use History: Occasional Past Drug Use History: None Reported
[2024-06-03] MEDS: MIRTAZAPINE 15 MG TAB PO SCH (21:08)
[2024-06-04] MEDS: IV FLUID CONTINUATION 1,000 ML IV ONE ×2 (07:15→07:51)
[2024-06-04] MEDS: BENZOCAINE SPRAY 1 EACH MM ONE (07:27)
[2024-06-04] MEDS ORDERED: PHENYLEPHRINE-0.9% NACL SYG 1,000 MCG/10 ML SYRINGE ONE (07:30)
[2024-06-04] MEDS ORDERED: PROPOFOL 10 MG/ML 20 ML VIAL IV ONE (07:30)
[2024-06-04] MEDS ORDERED: LIDOCAINE 1% INJ 10MG/ML (20 ML MDV) ONE (07:30)
--- NOTE | 2024-06-04 08:10 | P.PCN ---
Date of Procedure: 06/04/24 Description of Procedure: Indication: Atrial fibrillation Procedure Description: After explaining the procedure to the patient, it's risk and complications, blood pressure, heart rate and O2 saturation were monitored. The throat was sprayed with Cetacaine. Patient received sedation per anesthesia department. The probe was introduced into the esophagus without difficulty. Images were obtained. Following that, the probe was removed. The patient according to anesthesia was becoming apneic. The procedure was terminated earlier and he was ventilated. Findings: Left atrial size is dilated, left atrial appendage is normal. Left ventricle systolic function is severely impaired with global hypokinesis with an ejection fraction of 35 to 40%. The aortic valve revealed fibrocalcific changes of the aortic cusp. Mitral annulus calcification was noted. No pericardial fusion was noted. Doppler: Pulse wave and color Doppler were obtained, and revealed moderate severe multiple jets mitral regurgitation with moderate tricuspid regurgitation and mild aortic regurgitation. There was no shunting by color Doppler study. Conclusion: 1. Dilated left atrium with normal appearance of the left atrial appendage 2. Severe global hypokinesis of the left ventricle 3. Moderate severe mitral with moderate tricuspid regurgitation 4. Mild aortic regurgitation 5. No pericardial effusion Cardioversion: After performing ZENAIDA and the anesthesia department intubated the patient a synchronized biphasic cardioversion using 150 J was successful in restoring sinus mechanism but the patient reverted to atrial fibrillation in about 30 seconds. Another cardioversion using 200 J synchronized converted the patient to sinus mechanism that lasted less than a minute. The decision was to continue rate control at this time. The patient is intubated and hemodynamically stable. I discussed the findings with the son.
[2024-06-04] MEDS: IPRATROPIUM-ALBUTEROL 3 ML NEB INHALATION PRN (08:11)
[2024-06-04] MEDS: AMIODARONE 200 MG TAB PO SCH (09:50)
[2024-06-04] MEDS: DAPAGLIFLOZIN PROPANEDIOL 10 MG TABLET PO SCH (09:50)
[2024-06-04] MEDS: SPIRONOLACTONE 25 MG TAB PO SCH (09:50)
[2024-06-04] MEDS: FUROSEMIDE 10 MG/ML 4 ML VIAL IV SCH (11:30)
[2024-06-04] MEDS: SODIUM CHLORIDE 0.9% 1,000 ML IV SCH (11:31)
--- NOTE | 2024-06-04 12:39 | P.PN ---
Subjective Progress Note Date: 06/04/24 HISTORY OF PRESENTING ILLNESS Patient is a 79-year-old male with past medical history of atrial fibrillation, known to Dr. Chin in the past. He presented to the hospital because apparently he had a fall at the home and lost consciousness. His significant other was checking on him and he was not able to respond therefore she activated the EMS and asked them to wellness check on in. On admission to ER he was in atrial fibrillation with RVR. He was started on Cardizem drip. His heart rate is around 150s. Right bundle branch block. B13.3, WBC 12.7, BUN 35, creatinine 0.7, Progress note 06/02/2024 Today's visit he continues to be in atrial fibrillation with RVR with heart rates around 140s to 150s. His blood pressure is softer today. He continues to have mild confusion. Unknown baseline status. 06/03 Patient is currently on amiodarone drip at 0.5 mg/min. He remains in atrial fibrillation in the 130s and is feeling lousy. He is also on IV Lasix 40 mg daily. Discussed option of cardioversion tomorrow which patient is in agreement. Blood pressure 131/86, heart rate 130, pulse ox 94% on room air. Repeat blood work reveals WBC 17.7, hemoglobin 13.1. Creatinine 0.82. Potassium 3.7. CK5 182. TSH 1.19. Echocardiogram reveals EF of 35%, moderate concentric left ventricular hyp ertrophy. Both atria specifically left atrium is enlarged. There is mitral annular calcifications and aortic valve sclerosis with mild to moderate regurgitation. No significant pulmonary hypertension. No pericardial effusion. 06/04 Patient underwent ZENAIDA and cardioversion. ZENAIDA revealed dilated left atrium and atrial appendage, severe global hypokinesis of the left ventricle, moderate to severe mitral with moderate tricuspid regurgitation, mild aortic regurgitation, no pericardial effusion. Patient underwent synchronized cardioversion and converted to a sinus rhythm only briefly for less than 1 minute. Patient did require intubation which was successfully extubated. Patient is seen today on the floor following procedure. He denies having any chest pain, no shortness of breath no palpitations. He was ordered for 1 dose of IV Lasix. Plan is now for rate control. Blood pressure 104/82. PHYSICAL EXAMINATION Vital signs reviewed. Head: Normocephalic. Eyes: Sclerae nonicteric. Neck: Brisk carotid upstroke, elevated jugular venous distention. Lungs: Lungs clear to auscultation Heart: Irregularly irregular pulse Abdomen: Soft nontender, positive bowel sounds. Extremities: No edema, intact distal pulses. Neuro: Alert, oritented, no focal deficits. Detailed neuro exam was not p erformed. ASSESSMENT Permanent atrial fibrillation with RVR Mild HFpEF exacerbation Right bundle branch block Prior history of paroxysmal atrial fibrillation Metabolic encephalopathy PLAN Start patient on oral amiodarone 400 mg twice daily for 2 weeks and then 400 mg daily Increase beta-sanam frequency to 3 times daily, 50 mg Transition IV Lasix to oral 40 mg daily Continue to monitor telemetry hemodynamics electrolytes. Monitor renal function. Nurse practitioner note has been reviewed, I agree with documented findings and plan of care. Patient was seen and examined. Objective - Vital Signs Vital signs: Vital Signs Temp 97.3 F L 06/04/24 10:37 Pulse 95 06/04/24 10:37 Resp 18 06/04/24 10:37 BP 105/67 06/04/24 10:37 Pulse Ox 98 06/04/24 10:37 FiO2 100 06/04/24 07:56 Intake & Output 06/03/24 06/04/24 06/04/24 18:59 06:59 18:59 Intake Total 1709.44 401.665 260 Output Total 1100 1000 Balance 609.44 401.665 -740 Weight 103 kg Intake: IV 10 260 Invasive Line 3 10 10 Intake, IV Titration 209.44 391.665 Amount Amiodarone 360 mg In 200 391.665 Dextrose 5% in Water 200 ml @ 1 MG/MIN 33.333 mls/ hr IV .Q6H BRENNA Rx#: [id number] Amiodarone 450 mg In 9.44 Dextrose 5% in Water 250 ml @ 0.5 MG/MIN 16.667 mls/hr IV .Q15H BRENNA Rx#: [id number] Oral 1500 Output: Urine 1100 1000 Other: Voiding Method Indwelling Catheter Indwelling Catheter - Labs CBC & Chem 7: 06/03/24 06:24 06/03/24 06:24
--- NOTE | 2024-06-04 16:47 | P.PN ---
Progress Note - Text Progress Note Date: 06/04/24 Chief Complaint: Feeling unwell This is a pleasant 79-year-old patient, follows with Dr. Pelayo. Chronic medical conditions include atrial fibrillation, COPD, hypertension, hyperlipidemia, IBS. She had a combined COVID and flu shot on May 14. After 1 week she got the pneumonia vaccine. For 10 days patient started feeling unwell. Decreased appetite. No fever no chills. No change in bowel pattern. Apparently patient's fianc started get hold with him. In the home care people came to check and patient was found lying on the ground covered in urine and feces. Confused I was not sure how he is got the ground. Some superficial skin breakdown. ER patient is found to be in atrial fibrillation with rapid ventricular rate. Put on a Cardizem drip. June 02: Patient overflowing the ER. A-fib still uncontrolled. Seen by Dr. Sethi earlier. Cardizem drip being discontinued. Started out IV amiodarone drip. Also IV Lasix. Eating fair. June 03: Steroids were discontinued yesterday. Patient delirium is a bit better today. Patient can tell me that he is in the hospital. He knows the name the year the season. He knows that [employer] and Flakito Berry are running for the president. He tells me that he was engaged to his girlfriend but now engagement has been over. I spoke to patient's son today. I am also getting a speech consultation for a more formal heart function evaluation. Psychiatry also was consulted for the same. Dr. Cagle saw the patient and did not feel the patient has higher functioning executive functions. I did speak to the son saying that he should apply for guardianship. Patient does have basic understanding of things. A-fib remains uncontrolled. Remains on amiodarone drip. Patient is probably been getting set up for cardioversion along with ZENAIDA tomorrow. June 04: Up in a chair. Underwent a ZENAIDA. Unsuccessful cardioversion. Patient switched over to oral amiodarone.. Patient did undergo cognitive linguistic test administered by speech therapist. And the following results were obtained attention = severe impairment, visual spatial skills = severe impairment., Member= moderate impairment, executive functions= severe impairment, language= mild impairment. Eating well TE E: Dilated left atrium. Severe global hypokinesis left ventricle. Moderate to severe mitral and moderate tricuspid regurgitation. No pericardial effusion. Active Medications Acetaminophen (Acetaminophen Tab 325 Mg Tab) 650 mg PO Q6HR PRN PRN Reason: Mild Pain or Fever > 100.5 Albuterol/Ipratropium (Ipratropium-Albuterol 3 Ml Neb) 3 ml INHALATION RT-QID PRN PRN Reason: Shortness Of Breath Or Wheezing Last Admin: 06/04/24 08:11 Dose: 3 ml Alprazolam (Alprazolam 0.25 Mg Tab) 0.25 mg PO Q6HR PRN PRN Reason: Anxiety Amiodarone HCl (Amiodarone 200 Mg Tab) 400 mg PO BID [facility] Last Admin: 06/04/24 09:50 Dose: 400 mg Apixaban (Apixaban 5 Mg Tab) 5 mg PO BID [facility]; Protocol Last Admin: 06/04/24 06:05 Dose: 5 mg Ascorbic Acid (Ascorbic Acid 500 Mg Tab) 1,000 mg PO HS [facility] Last Admin: 06/03/24 21:08 Dose: 1,000 mg Atorvastatin Calcium (Atorvastatin 10 Mg Tab) 40 mg PO HS [facility] Benzocaine (Benzocaine [place] 1 Can) 1 spray TOPICAL TID PRN PRN Reason: Skin Irritation Calcium Carbonate/Glycine (Calcium Carbonate 500 Mg Chewable) 1,000 mg PO Q4HR PRN PRN Reason: Dyspepsia Dapagliflozin (Dapagliflozin Propanediol 10 Mg Tablet) 10 mg PO DAILY [facility] Last Admin: 06/04/24 09:50 Dose: 10 mg Furosemide (Furosemide 40 Mg Tab) 40 mg PO DAILY [facility] Lactulose (Lactulose 20 Gm/30 Ml Cup) 20 gm PO DAILY PRN PRN Reason: Constipation Loperamide HCl (Loperamide 2 Mg Cap) 2 mg PO Q2HR PRN PRN Reason: Loose Stool Melatonin (Melatonin 3 Mg Tablet) 3 mg PO HS PRN PRN Reason: Insomnia Metoprolol Tartrate (Metoprolol Tartrate 50 Mg Tab) 50 mg PO TID [facility] Mirtazapine (Mirtazapine 15 Mg Tab) 7.5 mg PO HS [facility] Last Admin: 06/03/24 21:08 Dose: 7.5 mg Naloxone HCl (Naloxone 0.4 Mg/Ml 1 Ml Vial) 0.2 mg IV Q2M PRN PRN Reason: Opioid Reversal Ondansetron HCl (Ondansetron 4 Mg/2 Ml Vial) 4 mg IVP Q8HR PRN PRN Reason: Nausea And Vomiting Spironolactone (Spironolactone 25 Mg Tab) 25 mg PO DAILY [facility] Last Admin: 06/04/24 09:50 Dose: 25 mg Tamsulosin HCl (Tamsulosin 0.4 Mg Cap.Er.24h) 0.4 mg PO HS [facility] Last Admin: 06/03/24 21:08 Dose: 0.4 mg Social history: Lives alone. Has a fianc that visits him. Retired. Smoked in the past. Physical examination: VITAL SIGNS: 7.3, 95, 18, 105 x 67, 98% on 2 L GENERAL: Up in a chair, comfortable EYES: Pupils equal. Conjunctiva olivia l. HEENT: External appearance of nose and ears normal, oral cavity grossly normal. NECK: JVD unable to assess; masses not palpable. HEART: Heart sounds irregular; no edema. LUNGS: Respiratory rate increased; clear to auscultation. ABDOMEN: Soft, nontender, liver spleen not palpable, no masses palpable. Leung catheter with urinary bag PSYCH: Able to answer basic questions. MUSCULOSKELETAL:No Clubbing/cyanosis;muscles-grossly intact. OA INVESTIGATIONS, reviewed in the clinical context: June 04: White count 7.7 hemoglobin 13.1 platelets 158 potassium 3.7 creatinine 0.82 TSH 1.June 03: White count 7.7 hemoglobin 13.1 platelets 158 potassium 3.7 creatinine 0.82 AST 71 ALT 63 TSH 1.June 02: Sodium 137 potassium 4.4 creatinine 0.81 June 01, 2024: White count 12.7 hemoglobin 13.3 platelets 124 sodium 137 potassium 3.8 BUN 35 creatinine 0.78 EKG tracing personally reviewed by me-atrial fibrillation. Rate 188 Chest x-ray film personally reviewed by me-cardiomegaly. Venous prominence CT brain spine without contrast: Soft tissue swelling posterior occipital cortex. Some chronic changes. CT scan chest abdomen pelvis: Calcified granuloma in the liver and spleen. Minimal gravel or sludge in the gallbladder. Assessment plan: -Patient was found on the ground. Not sure how he got there. Patient was found here to have A-fib with rapid ventricular rate. Likely cause Telemetry -BPH with bladder outflow obstruction Alfuzosin -Persistent atrial fibrillation, rapid and uncontrolled: Remains uncontrolled Eliquis. Cardizem drip-discontinued. Cardiology following IV amiodarone changed over to oral amiodarone today Lopressor 50 mg twice daily ZENAIDA followed by cardioversion today: Unsuccessful -COPD in a previous smoker -Hyperlipidemia Mevacor -Essential hypertension, blood pressure running on the lower side. Hold Aldactone, Zestril. On Lopressor -IBS -Full code -Moderate cognitive impairment. Evaluated by psychiatry Dr. Cagle.-Not able to do higher functions. Patient's son is looking into guardianship cognitive linguistic test administered by speech therapist. Results: Attention = severe impairment, visual spatial skills = severe impairment., Member= moderate impairment, executive functions= severe impairment, language= mild impairment. Unsuccessful cardioversion today. Following ZENAIDA. On oral amiodarone. Past Medical History Past Medical History: Atrial Fibrillation, COPD, CVA/TIA, Hyperlipidemia, Hypertension, Pneumonia Additional Past Medical History / Comment(s): IBS History of Any Multi-Drug Resistant Organisms: None Reported Past Surgical History: Adenoidectomy, Ear Surgery, Tonsillectomy Additional Past Surgical History / Comment(s): dental surgery Past Anesthesia/Blood Transfusion Reactions: No Reported Reaction Past Psychological History: No Psychological Hx Reported Smoking Status: Former smoker Past Alcohol Use History: Occasional Past Drug Use History: None Reported
[2024-06-04] MEDS: METOPROLOL TARTRATE 50 MG TAB PO SCH (17:50)
[2024-06-04] MEDS: ATORVASTATIN 10 MG TAB PO SCH (20:35)
[2024-06-05] MEDS ORDERED: FUROSEMIDE 10 MG/ML 4 ML VIAL IV SCH (09:00)
[2024-06-05] MEDS: FUROSEMIDE 40 MG TAB PO SCH (09:44)
[2024-06-05 10:06] LABS: African American GFR (CKD) 86 (>60 ml/min/1.73 sqM); Anion Gap 5 mmol/L; Blood Urea Nitrogen 34 mg/dL (9-20); Calcium 7.8 mg/dL (8.4-10.2); Carbon Dioxide 30 mmol/L (22-30); Chloride 101 mmol/L (98-107); Glucose 98 mg/dL (74-99); Non-African American GFR(CKD) 75 (>60 ml/min/1.73 sqM); Potassium 3.5 mmol/L (3.5-5.1); Sodium 136 mmol/L (137-145)
[2024-06-05 10:13] VITALS: BMI 27.8
--- NOTE | 2024-06-05 11:45 | P.PN ---
Subjective Progress Note Date: 06/05/24 HISTORY OF PRESENTING ILLNESS Patient is a 79-year-old male with past medical history of atrial fibrillation, known to Dr. Chin in the past. He presented to the hospital because apparently he had a fall at the home and lost consciousness. His significant other was checking on him and he was not able to respond therefore she activated the EMS and asked them to wellness check on in. On admission to ER he was in atrial fibrillation with RVR. He was started on Cardizem drip. His heart rate is around 150s. Right bundle branch block. B13.3, WBC 12.7, BUN 35, creatinine 0.7, Progress note 06/02/2024 Today's visit he continues to be in atrial fibrillation with RVR with heart rates around 140s to 150s. His blood pressure is softer today. He continues to have mild confusion. Unknown baseline status. 06/03 Patient is currently on amiodarone drip at 0.5 mg/min. He remains in atrial fibrillation in the 130s and is feeling lousy. He is also on IV Lasix 40 mg daily. Discussed option of cardioversion tomorrow which patient is in agreement. Blood pressure 131/86, heart rate 130, pulse ox 94% on room air. Repeat blood work reveals WBC 17.7, hemoglobin 13.1. Creatinine 0.82. Potassium 3.7. CK5 182. TSH 1.19. Echocardiogram reveals EF of 35%, moderate concentric left ventricular hyp ertrophy. Both atria specifically left atrium is enlarged. There is mitral annular calcifications and aortic valve sclerosis with mild to moderate regurgitation. No significant pulmonary hypertension. No pericardial effusion. 06/04 Patient underwent ZENAIDA and cardioversion. ZENAIDA revealed dilated left atrium and atrial appendage, severe global hypokinesis of the left ventricle, moderate to severe mitral with moderate tricuspid regurgitation, mild aortic regurgitation, no pericardial effusion. Patient underwent synchronized cardioversion and converted to a sinus rhythm only briefly for less than 1 minute. Patient did require intubation which was successfully extubated. Patient is seen today on the floor following procedure. He denies having any chest pain, no shortness of breath no palpitations. He was ordered for 1 dose of IV Lasix. Plan is now for rate control. Blood pressure 104/82. 06/05 Patient is seen and examined. Telemetry is atrial fibrillation. He is currently on amiodarone 400 mg twice daily as he was transitioned off IV yesterday. His blood pressure readings have been on the lower side in the 90s, heart rate 85, pulse ox 95% on room air. Sodium 136, potassium 3.5, BUN 34 creatinine 0.98. PHYSICAL EXAMINATION Vital signs reviewed. Head: Normocephalic. Eyes: Sclerae nonicteric. Neck: Brisk carotid upstroke, elevated jugular venous distention. Lungs: Lungs clear to auscultation Heart: Irregularly irregular pulse Abdomen: Soft nontender, positive bowel sounds. Extremities: No edema, intact distal pulses. Neuro: Alert, oritented, no focal deficits. Detailed neuro exam was not performed. ASSESSMENT Permanent atrial fibrillation with RVR, currently rate controlled Mild HFpEF exacerbation Right bundle branch block Prior history of paroxysmal atrial fibrillation Metabolic encephalopathy PLAN Continue patient on oral amiodarone 400 mg twice daily for 2 weeks and then 400 mg daily Continue metoprolol 50 mg 3 times daily. Hold beta-sanam for systolic blood pressure less than 85. Continue Lasix to oral 40 mg daily Patient is cleared for discharge from cardiology and may follow-up with Dr. Chin in 2 to 4 weeks. Nurse practitioner note has been reviewed, I agree with documented findings and plan of care. Patient was seen and examined. Objective - Vital Signs Vital signs: Vital Signs Temp 97.6 F 06/05/24 07:39 Pulse 85 06/05/24 07:39 Resp 18 06/05/24 08:34 BP 96/69 06/05/24 07:39 Pulse Ox 95 06/05/24 07:39 FiO2 100 06/04/24 07:56 Intake & Output 06/04/24 06/05/24 06/05/24 18:59 06:59 18:59 Intake Total 260 500 Output Total 1000 1900 325 Balance -740 -1900 175 Weight 101 kg Intake: IV 260 20 Invasive Line 3 10 10 Invasive Line 4 10 Oral 480 Output: Urine 1000 1900 325 Other: Voiding Method Indwelling Catheter Indwelling Catheter Indwelling Catheter - Labs CBC & Chem 7: 06/03/24 06:24 06/05/24 08:35
--- NOTE | 2024-06-05 18:35 | P.DS ---
Providers Date of admission: 05/31/24 17:32 Expected date of discharge: 06/06/24 Attending physician: Jesse Sosa Consults: 05/31/24 17:32 Consult Physician Routine Consulting Provider: Kenny Chin Consult Reason/Comments: afibRVR Do you want consulting provider notified?: Yes 06/03/24 11:29 Consult Physician Routine Consulting Provider: Brian Cagle Consult Reason/Comments: assess mental state Do you want consulting provider notified?: Yes Primary care physician: Brian [facility] Course: Chief Complaint: Feeling unwell This is a pleasant 79-year-old patient, follows with Dr. Pelayo. Chronic medical conditions include atrial fibrillation, COPD, hypertension, hyperlipidemia, IBS. She had a combined COVID and flu shot on May 14. After 1 week she got the pneumonia vaccine. For 10 days patient started feeling unwell. Decreased appetite. No fever no chills. No change in bowel pattern. Apparently patient's fianc started get hold with him. In the home care people came to check and patient was found lying on the ground covered in urine and feces. Confused I was not sure how he is got the ground. Some superficial skin breakdown. ER patient is found to be in atrial fibrillation with rapid ventricular rate. Put on a Cardizem drip. June 02: Patient overflowing the ER. A-fib still uncontrolled. Seen by Dr. Sethi earlier. Cardizem drip being discontinued. Started out IV amiodarone drip. Also IV Lasix. Eating fair. June 03: Steroids were discontinued yesterday. Patient delirium is a bit better today. Patient can tell me that he is in the hospital. He knows the name the year the season. He knows that [employer] and [facility] are running for the [employer]. He tells me that he was engaged to his girlfriend but now engagement has been over. I spoke to patient's son today. I am also getting a speech consultation for a more formal heart function evaluation. Psychiatry also was consulted for the same. Dr. Cagle saw the patient and did not feel the patient has higher functioning executive functions. I did speak to the son saying that he should apply for guardianship. Patient does have basic understanding of things. A-fib remains uncontrolled. Remains on amiodarone drip. Patient is probably been getting set up for cardioversion along with ZENAIDA tomorrow. June 04: Up in a chair. Underwent a ZENAIDA. Unsuccessful cardioversion. Patient switched over to oral amiodarone.. Patient did undergo cognitive linguistic test administered by speech therapist. And the following results were obtained attention = severe impairment, visual spatial skills = severe impairment., Member= moderate impairment, executive functions= severe impa irment, language= mild impairment. Eating well TE E: Dilated left atrium. Severe global hypokinesis left ventricle. Moderate to severe mitral and moderate tricuspid regurgitation. No pericardial effusion. June 05: Seth table. Tolerating diet. Patient son has applied for guardianship test will be done the court next week. Patient has been accepted at rehab will be going there tomorrow. OBRA completed. Discussed with Dr. Jason Carrillo. Patient's heart rate will go up to 130s up to 140 with ambulation. That is expected to be normal for him. Getting a tapering dose of amiodarone. Will be discharged tomorrow morning. To [facility] Discussion and discharge planning more than 35 minutes Social history: Lives alone. Has a fianc that visits him. Retired. Smoked in the past. Physical examination: VITAL SIGNS: 98.2, 120, 16, 98 x 57, 98% room air GENERAL: Up in a chair, comfortable EYES: Pupils equal. Conjunctiva olivia l. HEENT: External appearance of nose and ears normal, oral cavity grossly normal. NECK: JVD unable to assess; masses not palpable. HEART: Heart sounds irregular; no edema. LUNGS: Respiratory rate increased; clear to auscultation. ABDOMEN: Soft, nontender, liver spleen not palpable, no masses palpable. Leung catheter with urinary bag PSYCH: Able to answer basic questions. MUSCULOSKELETAL:No Clubbing/cyanosis;muscles-grossly intact. OA INVESTIGATIONS, reviewed in the clinical context: June 05: Potassium 3.5 creatinine 0.98 June 04: White count 7.7 hemoglobin 13.1 platelets 158 potassium 3.7 creatinine 0.82 TSH .June 03: White count 7.7 hemoglobin 13.1 platelets 158 potassium 3.7 creatinine 0.82 AST 71 ALT 63 TSH 1.June 02: Sodium 137 potassium 4.4 creatinine 0.81 June 01, 2024: White count 12.7 hemoglobin 13.3 platelets 124 sodium 137 potassium 3.8 BUN 35 creatinine 0.78 EKG tracing personally reviewed by me-atrial fibrillation. Rate 188 Chest x-ray film personally reviewed by me-cardiomegaly. Venous prominence CT brain spine without contrast: Soft tissue swelling posterior occipital cortex. Some chronic changes. CT scan chest abdomen pelvis: Calcified granuloma in the liver and spleen. Minimal gravel or sludge in the gallbladder. Assessment plan: -Patient was found on the ground. Not sure how he got there. Patient was found here to have A-fib with rapid ventricular rate. Likely cause Telemetry -BPH with bladder outflow obstruction Alfuzosin -Persistent atrial fibrillation, rapid and uncontrolled: Expect the heart rate to be 130s to up to 140 with activity. Eliquis. Cardizem drip-discontinued. Cardiology following IV amiodarone changed over to oral amiodarone. Discharged on tapering dose. Lopressor 50 mg 3 times daily ZENAIDA followed by cardioversion : Unsuccessful -COPD in a previous smoker -Hyperlipidemia Mevacor -Essential hypertension, blood pressure running on the lower side. Aldactone, . On Lopressor -IBS -Full code -Moderate cognitive impairment. Evaluated by psychiatry Dr. Cagle.-Not able to do higher functions. Patient's son is looking into guardianship cognitive linguistic test administered by speech therapist. Results: Attention = severe impairment, visual spatial skills = severe impairment., Member= moderate impairment, executive functions= severe impairment, language= mild impairment. Disposition: [facility]. Rehab Past Medical History Past Medical History: Atrial Fibrillation, COPD, CVA/TIA, Hyperlipidemia, Hypertension, Pneumonia Additional Past Medical History / Comment(s): IBS History of Any Multi-Drug Resistant Organisms: None Reported Past Surgical History: Adenoidectomy, Ear Surgery, Tonsillectomy Additional Past Surgical History / Comment(s): dental surgery Past Anesthesia/Blood Transfusion Reactions: No Reported Reaction Past Psychological History: No Psychological Hx Reported Smoking Status: Former smoker Past Alcohol Use History: Occasional Past Drug Use History: None Reported Plan - Discharge Summary Discharge Rx Participant: No New Discharge Prescriptions: New Dapagliflozin Propanediol [Farxiga] 10 mg PO DAILY #30 tab Metoprolol Tartrate [Lopressor] 50 mg PO TID #90 tab Amiodarone [Cordarone] 200 mg PO DIRECTED #1 tab Continue Diphenox-Atrop 2.5-0.025 mg [Lomotil] 1 tab PO TID PRN PRN Reason: Diarrhea Lovastatin [Mevacor] 40 mg PO HS Apixaban [Eliquis] 5 mg PO BID #60 tab Ascorbic Acid [Vitamin C] 1,000 mg PO HS Alfuzosin HCl [Alfuzosin HCl ER] 10 mg PO HS Spironolactone [Aldactone] 25 mg PO DAILY Cholecalciferol [Vitamin D3 (25 Mcg = 1000 Iu)] 25 mcg PO DAILY Discontinued Zinc Gluconate [Zinc] 50 mg PO DAILY lisinopriL [Zestril] 5 mg PO DAILY Metoprolol Tartrate [Lopressor] 25 mg PO BID Discharge Medication List Diphenox-Atrop 2.5-0.025 mg [Lomotil] 1 tab PO TID PRN 02/18/15 [History] Lovastatin [Mevacor] 40 mg PO HS 02/18/15 [History] Apixaban [Eliquis] 5 mg PO BID #60 tab 06/24/20 [Rx] Ascorbic Acid [Vitamin C] 1,000 mg PO HS 07/28/20 [History] Alfuzosin HCl [Alfuzosin HCl ER] 10 mg PO HS 10/20/23 [History] Cholecalciferol [Vitamin D3 (25 Mcg = 1000 Iu)] 25 mcg PO DAILY 05/31/24 [History] Spironolactone [Aldactone] 25 mg PO DAILY 05/31/24 [History] Amiodarone [Cordarone] 200 mg PO DIRECTED #1 tab 06/05/24 [Rx] Dapagliflozin Propanediol [Farxiga] 10 mg PO DAILY #30 tab 06/05/24 [Rx] Metoprolol Tartrate [Lopressor] 50 mg PO TID #90 tab 06/05/24 [Rx] Follow up Appointment(s)/Referral(s): cardiology, [Other] - 1 Week Brian Pelayo DO [Primary Care Provider] - 1-2 days
--- NOTE | 2024-06-06 10:50 | P.PN ---
Subjective HISTORY OF PRESENT ILLNESS: Patient is a 79-year-old male with past medical history of atrial fibrillation, known to Dr. Chin in the past. He presented to the hospital because apparently he had a fall at the home and lost consciousness. His significant other was checking on him and he was not able to respond therefore she activated the EMS and asked them to wellness check on in. On admission to ER he was in atrial fibrillation with RVR. He was started on Cardizem drip. His heart rate is around 150s. Right bundle branch block. B13.3, WBC 12.7, BUN 35, creatinine 0.7, Progress note 06/02/2024 Today's visit he continues to be in atrial fibrillation with RVR with heart rates around 140s to 150s. His blood pressure is softer today. He continues to have mild confusion. Unknown baseline status. 06/03 Patient is currently on amiodarone drip at 0.5 mg/min. He remains in atrial fibrillation in the 130s and is feeling lousy. He is also on IV Lasix 40 mg daily. Discussed option of cardioversion tomorrow which patient is in ag reement. Blood pressure 131/86, heart rate 130, pulse ox 94% on room air. Repeat blood work reveals WBC 17.7, hemoglobin 13.1. Creatinine 0.82. Potassium 3.7. CK5 182. TSH 1.19. Echocardiogram reveals EF of 35%, moderate concentric left ventricular hypertrophy. Both atria specifically left atrium is enlarged. There is mitral annular calcifications and aortic valve sclerosis with mild to moderate regurgitation. No significant pulmonary hypertension. No pericardial effusion. 06/04 Patient underwent ZENAIDA and cardioversion. ZENAIDA revealed dilated left atrium and atrial appendage, severe global hypokinesis of the left ventricle, moderate to severe mitral with moderate tricuspid regurgitation, mild aortic regurgitation, no pericardial effusion. Patient underwent synchronized cardioversion and converted to a sinus rhythm only briefly for less than 1 minute. Patient did require intubation which was successfully extubated. Patient is seen today on the floor following procedure. He denies having any chest pain, no shortness of breath no palpitations. He was ordered for 1 dose of IV Lasix. Plan is now for rate control. Blood pressure 104/82. 06/05 Patient is seen and examined. Telemetry is atrial fibrillation. He is currently on amiodarone 400 mg twice daily as he was transitioned off IV yesterday. His blood pressure readings have been on the lower side in the 90s, heart rate 85, pulse ox 95% on room air. Sodium 136, potassium 3.5, BUN 34 creatinine 0.98. 06/06/2024 Patient examined this morning the bedside. Patient currently denies chest pain or pressure. He denies shortness of breath. Vital signs are stable. Telemetry reveals atrial fibrillation with a heart rate around 110. PHYSICAL EXAM: VITAL SIGNS: Reviewed. GENERAL: Well-developed in no acute distress. NECK: Supple. No JVD or thyromegaly LUNGS: Respirations even and unlabored. Lungs essentially clear to auscultation bilaterally. HEART: Irregular rate and rhythm. S1 and S2 heard. EXTREMITIES: Normal range of motion. No clubbing or cyanosis. Peripheral pulses intact. No lower extremity edema ASSESSMENT: Status post fall Metabolic encephalopathy Persistent atrial fibrillation with RVR, status post ZENAIDA and cardioversion x 2, unsuccessful and patient reverted back to trill fibrillation Acute heart failure with reduced EF, 35% Right bundle branch block Hypertension Hyperlipidemia COPD PLAN: Continue current cardiac medications Continue telemetry monitoring Patient is stable for discharge today from a cardiac standpoint Nurse practitioner note has been reviewed by physician. Signing provider agrees with the documented findings, assessment, and plan of care documented by WELFARE VISITOR as a scribe. Objective - Vital Signs Vital signs: Vital Signs Temp 96.9 F L 06/06/24 07:54 Pulse 114 H 06/06/24 07:54 Resp 16 06/06/24 07:54 BP 115/88 06/06/24 07:54 Pulse Ox 95 06/06/24 07:54 FiO2 100 06/04/24 07:56 Intake & Output 06/05/24 06/06/24 06/06/24 18:59 06:59 18:59 Intake Total 740 118 Output Total 1675 1800 Balance -935 -1800 118 Weight 101 kg Intake: IV 20 Invasive Line 3 10 Invasive Line 4 10 Oral 720 118 Output: Urine 1675 1800 Other: Voiding Method Indwelling Catheter Indwelling Catheter Indwelling Catheter # Voids 1 # Bowel Movements 1 - Labs CBC & Chem 7: 06/03/24 06:24 06/05/24 08:35
--- NOTE | 2024-06-06 14:52 | P.PN ---
Subjective Progress Note Date: 06/06/24 This is a 79-year-old male with suspected dementia he comes in secondary to a fall and found to be lying on the ground covered in urine and feces patient was confused and had some superficial skin breakdown. Patient terry had called home care to check on the patient he apparently had recently got a COVID flu and pneumonia vaccination all within 1 week. He came into the ER was found to be in atrial fibrillation with rapid ventricular rate. He was started on IV amiodarone and IV Lasix Cardizem drip have been discontinued patient is quite confused saw psychiatry recommending that the son apply for guardianship which is currently pending a hearing next Monday. Heart rate has been sign ificantly improved and he is on a tapering dose of amiodarone. Discharge to rehab has been held as there is no excepting facility they are wanting the guardianship hearing to take place prior to accepting this patient at rehab. Review of Systems Constitutional: Denied any fatigue denied any fever. Cardio vascular: denied any chest pain, palpitations Gastrointestinal: denied any nausea, vomiting, diarrhea Pulmonary: Denied any shortness of breath cough Neurologic denied any new focal deficits All inpatient medications were reviewed and appropriate changes in these medications as dictated in the interval history and assessment and plan. PHYSICAL EXAMINATION: GENERAL: The patient is alert and oriented x2, not in any acute distress. Well developed, well nourished. HEENT: Pupils are round and equally reacting to light. EOMI. No scleral icterus. No conjunctival pallor. Normocephalic, atraumatic. No pharyngeal erythema. No thyromegaly. CARDIOVASCULAR: S1 and S2 present. No murmurs, rubs, or gallops. PULMONARY: Chest is clear to auscultation, no wheezing or crackles. ABDOMEN: Soft, nontender, nondistended, normoactive bowel sounds. No palpable organomegaly. MUSCULOSKELETAL: No joint swelling or deformity. EXTREMITIES: No cyanosis, clubbing, or pedal edema. NEUROLOGICAL: Gross neurological examination did not reveal any focal deficits. SKIN: No rashes. Assessment plan: Fall Altered mental status due to acute metabolic encephalopathy BPH with bladder outflow obstruction Persistent atrial fibrillation, rapid and uncontrolled: Remains uncontrolled COPD in a previous smoker Hyperlipidemia Essential hypertension, blood pressure running on the lower side. IBS Moderate cognitive impairment. Full code Plan Patient remains on an amiodarone taper will continue current cardiac medications at this time cardiology has cleared this patient for discharge Patient's mentation has improved however was found to have significant to of impairment and patient's son is petitioning for guardianship and the hearing will be on Monday Patient was set to discharge to subacute rehab today however the rehab is now stating they would not accept this patient until the guardianship hearing is completed so patient will need to remain in the hospital until next Monday at the earliest The impression and plan of care has been dictated by Mirela Black, Nurse Practitioner as directed. Dr. Kaylie MD I have performed a history and physical examination and medical decision making of this patient, discussed the same with the dictator, and agree with the dictators assessment and plan as written, documented as a scribe. Based on total visit time, I have performed more than 50% of this visit. Objective - Vital Signs Vital signs: Vital Signs Temp 97.9 F 06/06/24 14:00 Pulse 100 06/06/24 14:00 Resp 18 06/06/24 14:00 BP 95/68 06/06/24 14:00 Pulse Ox 93 L 06/06/24 14:00 FiO2 100 06/04/24 07:56 Intake & Output 06/05/24 06/06/24 06/06/24 18:59 06:59 18:59 Intake Total 740 236 Output Total 1675 1800 1800 Balance -098 -1800 -8018 Weight 101 kg Intake: IV 20 Invasive Line 3 10 Invasive Line 4 10 Oral 720 236 Output: Urine 1675 1800 1800 Other: Voiding Method Indwelling Catheter Indwelling Catheter Indwelling Catheter # Voids 1 # Bowel Movements 1 1 - Labs CBC & Chem 7: 06/03/24 06:24 06/05/24 08:35 Assessment and Plan Time with Patient: Less than 30
[2024-06-07 09:11] LABS: Basophils # (A) 0.07 X 10*3/uL (0.00-0.10); Basophils % (A) 0.5 %; Eosinophils # (A) 0.29 X 10*3/uL (0.04-0.35); Eosinophils % (A) 2.2 %; HGB 14.1 g/dL (13.0-17.0); Lymphocytes # (A) 2.48 X 10*3/uL (0.90-5.00); Lymphocytes % (A) 18.9 %; MCH 31.8 pg (27.0-32.0); MCHC 33.6 g/dL (32.0-37.0); MCV 94.8 FL (80.0-97.0); Mean Platelet Volume 11.5 FL (9.5-12.2); Monocytes # (A) 0.79 X 10*3/uL (0.20-1.00); NRBC Per 100 WBC 0 X 10*3/uL (0.00-0.01); Neutrophils # (A) 9.22 X 10*3/uL (1.80-7.70); Neutrophils % (A) 70.3 %; Platelet Count 186 X 10*3/uL (140-440); RBC 4.43 X 10*6/uL (4.40-5.60); WBC 13.12 X 10*3/uL (4.50-10.00)
[2024-06-07 09:20] LABS: BUN/Creat Ratio 22.64 Ratio (12.00-20.00); Blood Urea Nitrogen 24.9 mg/dL (9.0-27.0); Calcium 8.1 mg/dL (8.7-10.3); Chloride 100 mmol/L (96-109); Glucose 98 mg/dL (70-110); Potassium 3.9 mmol/L (3.5-5.5); Sodium 138 mmol/L (135-145)
[2024-06-07] MEDS ORDERED: ZINC OXIDE PASTE (Z-GUARD) 1 APPLIC TOPICAL PRN (09:28)
[2024-06-07] MEDS: METOPROLOL TARTRATE 25 MG TAB PO SCH (10:08)
--- NOTE | 2024-06-07 12:35 | P.PN ---
Subjective HISTORY OF PRESENT ILLNESS: Patient is a 79-year-old male with past medical history of atrial fibrillation, known to Dr. Chin in the past. He presented to the hospital because apparently he had a fall at the home and lost consciousness. His significant other was checking on him and he was not able to respond therefore she activated the EMS and asked them to wellness check on in. On admission to ER he was in atrial fibrillation with RVR. He was started on Cardizem drip. His heart rate is around 150s. Right bundle branch block. B13.3, WBC 12.7, BUN 35, creatinine 0.7, Progress note 06/02/2024 Today's visit he continues to be in atrial fibrillation with RVR with heart rates around 140s to 150s. His blood pressure is softer today. He continues to have mild confusion. Unknown baseline status. 06/03 Patient is currently on amiodarone drip at 0.5 mg/min. He remains in atrial fibrillation in the 130s and is feeling lousy. He is also on IV Lasix 40 mg daily. Discussed option of cardioversion tomorrow which patient is in ag reement. Blood pressure 131/86, heart rate 130, pulse ox 94% on room air. Repeat blood work reveals WBC 17.7, hemoglobin 13.1. Creatinine 0.82. Potassium 3.7. CK5 182. TSH 1.19. Echocardiogram reveals EF of 35%, moderate concentric left ventricular hypertrophy. Both atria specifically left atrium is enlarged. There is mitral annular calcifications and aortic valve sclerosis with mild to moderate regurgitation. No significant pulmonary hypertension. No pericardial effusion. 06/04 Patient underwent ZENAIDA and cardioversion. ZENAIDA revealed dilated left atrium and atrial appendage, severe global hypokinesis of the left ventricle, moderate to severe mitral with moderate tricuspid regurgitation, mild aortic regurgitation, no pericardial effusion. Patient underwent synchronized cardioversion and converted to a sinus rhythm only briefly for less than 1 minute. Patient did require intubation which was successfully extubated. Patient is seen today on the floor following procedure. He denies having any chest pain, no shortness of breath no palpitations. He was ordered for 1 dose of IV Lasix. Plan is now for rate control. Blood pressure 104/82. 06/05 Patient is seen and examined. Telemetry is atrial fibrillation. He is currently on amiodarone 400 mg twice daily as he was transitioned off IV yesterday. His blood pressure readings have been on the lower side in the 90s, heart rate 85, pulse ox 95% on room air. Sodium 136, potassium 3.5, BUN 34 creatinine 0.98. 06/06/2024 Patient examined this morning the bedside. Patient currently denies chest pain or pressure. He denies shortness of breath. Vital signs are stable. Telemetry reveals atrial fibrillation with a heart rate around 110. 06/07/2024 Patient examined this morning the bedside. Patient currently denies chest pain or pressure. He denies shortness of breath. Telemetry reveals atrial fibrillation with heart rate between [id number]. PHYSICAL EXAM: VITAL SIGNS: Reviewed. GENERAL: Well-developed in no acute distress. NECK: Supple. No JVD or thyromegaly LUNGS: Respirations even and unlabored. Lungs essentially clear to auscultation bilaterally. HEART: Irregular rate and rhythm. S1 and S2 heard. EXTREMITIES: Normal range of motion. No clubbing or cyanosis. Peripheral pulses intact. No lower extremity edema ASSESSMENT: Status post fall Metabolic encephalopathy Persistent atrial fibrillation with RVR, status post ZENAIDA and cardioversion x 2, unsuccessful and patient reverted back to trill fibrillation Acute heart failure with reduced EF, 35% Right bundle branch block Hypertension Hyperlipidemia COPD PLAN: Continue current cardiac medications Increase metoprolol to 75 mg 3 times daily Continue telemetry monitoring Patient is stable for discharge today from a cardiac standpoint We will sign off. Please reconsult if needed. Nurse practitioner note has been reviewed by physician. Signing provider agrees with the documented findings, assessment, and plan of care documented by PROTECTIVE SIGNAL OPERATIONS SUPERVISOR as a scribe. Objective - Vital Signs Vital signs: Vital Signs Temp 97.7 F 06/07/24 07:48 Pulse 111 H 06/07/24 07:48 Resp 18 06/07/24 07:48 BP 118/70 06/07/24 07:48 Pulse Ox 94 L 06/07/24 07:48 FiO2 100 06/04/24 07:56 Intake & Output 06/06/24 06/07/24 06/07/24 18:59 06:59 18:59 Intake Total 404 118 Output Total 1800 2300 800 Balance -1396 -2300 -682 Intake: Oral 404 118 Output: Urine 1800 2300 800 Other: Voiding Method Indwelling Catheter Indwelling Catheter Indwelling Catheter # Bowel Movements 1 - Labs CBC & Chem 7: 10/25/24 05:02 06/07/24 05:02 Labs: Abnormal Lab Results - Last 24 Hours (Table) 06/07/24 06/07/24 Range/Units 05:02 05:02 WBC 13.12 H (4.50-10.00) X 10*3/uL Immature Gran # 0.27 H (0.00-0.04) X 10*3/uL Neutrophils # 9.22 H (1.80-7.70) X 10*3/uL BUN/Creatinine Ratio 22.64 H (12.00-20.00) Ratio Calcium 8.1 L (8.7-10.3) mg/dL
--- NOTE | 2024-06-07 14:22 | P.PN ---
Subjective Progress Note Date: 06/07/24 This is a 79-year-old male with suspected dementia he comes in secondary to a fall and found to be lying on the ground covered in urine and feces patient was confused and had some superficial skin breakdown. Patient terry had called home care to check on the patient he apparently had recently got a COVID flu and pneumonia vaccination all within 1 week. He came into the ER was found to be in atrial fibrillation with rapid ventricular rate. He was started on IV amiodarone and IV Lasix Cardizem drip have been discontinued patient is quite confused saw psychiatry recommending that the son apply for guardianship which is currently pending a hearing next Monday. Heart rate has been sig nificantly improved and he is on a tapering dose of amiodarone. Discharge to rehab has been held as there is no excepting facility they are wanting the guardianship hearing to take place prior to accepting this patient at rehab. Review of Systems Constitutional: Denied any fatigue denied any fever. Cardio vascular: denied any chest pain, palpitations Gastrointestinal: denied any nausea, vomiting, diarrhea Pulmonary: Denied any shortness of breath cough Neurologic denied any new focal deficits All inpatient medications were reviewed and appropriate changes in these medications as dictated in the interval history and assessment and plan. PHYSICAL EXAMINATION: GENERAL: The patient is alert and oriented x2, not in any acute distress. Well developed, well nourished. HEENT: Pupils are round and equally reacting to light. EOMI. No scleral icterus. No conjunctival pallor. Normocephalic, atraumatic. No pharyngeal erythema. No thyromegaly. CARDIOVASCULAR: S1 and S2 present. No murmurs, rubs, or gallops. PULMONARY: Chest is clear to auscultation, no wheezing or crackles. ABDOMEN: Soft, nontender, nondistended, normoactive bowel sounds. No palpable organomegaly. MUSCULOSKELETAL: No joint swelling or deformity. EXTREMITIES: No cyanosis, clubbing, or pedal edema. NEUROLOGICAL: Gross neurological examination did not reveal any focal deficits. SKIN: No rashes. Assessment plan: Fall Altered mental status due to acute metabolic encephalopathy BPH with bladder outflow obstruction Persistent atrial fibrillation, rapid and uncontrolled: Remains uncontrolled COPD in a previous smoker Hyperlipidemia Essential hypertension, blood pressure running on the lower side. IBS Moderate cognitive impairment. Full code Plan Patient remains on an amiodarone taper will continue current cardiac medications at this time cardiology has cleared this patient for discharge Patient's mentation has improved however was found to have significant to of impairment and patient's son is petitioning for guardianship and the hearing will be on Monday Patient was set to discharge to subacute rehab today however the rehab is now stating they would not accept this patient until the guardianship hearing is completed so patient will need to remain in the hospital until next Monday at the earliest The impression and plan of care has been dictated by Mirela Black, Nurse Practitioner as directed. Objective - Vital Signs Vital signs: Vital Signs Temp 97.7 F 06/07/24 07:48 Pulse 111 H 06/07/24 07:48 Resp 18 06/07/24 07:48 BP 118/70 06/07/24 07:48 Pulse Ox 94 L 06/07/24 07:48 FiO2 100 06/04/24 07:56 Intake & Output 06/06/24 06/07/24 06/07/24 18:59 06:59 18:59 Intake Total 404 118 Output Total 1800 2300 Balance -1396 -2300 118 Intake: Oral 404 118 Output: Urine 1800 2300 Other: Voiding Method Indwelling Catheter Indwelling Catheter Indwelling Catheter # Bowel Movements 1 - Labs CBC & Chem 7: 06/07/24 05:02 06/07/24 05:02 Labs: Abnormal Lab Results - Last 24 Hours (Table) 06/07/24 06/07/24 Range/Units 05:02 05:02 WBC 13.12 H (4.50-10.00) X 10*3/uL Immature Gran # 0.27 H (0.00-0.04) X 10*3/uL Neutrophils # 9.22 H (1.80-7.70) X 10*3/uL BUN/Creatinine Ratio 22.64 H (12.00-20.00) Ratio Calcium 8.1 L (8.7-10.3) mg/dL
[2024-06-08 09:20] LABS: Basophils # (A) 0.06 X 10*3/uL (0.00-0.10); Basophils % (A) 0.4 %; Eosinophils # (A) 0.25 X 10*3/uL (0.04-0.35); Eosinophils % (A) 1.6 %; HCT 43.7 % (39.6-50.0); HGB 14.2 g/dL (13.0-17.0); Lymphocytes # (A) 2.23 X 10*3/uL (0.90-5.00); Lymphocytes % (A) 14.6 %; MCH 30.3 pg (27.0-32.0); MCHC 32.5 g/dL (32.0-37.0); MCV 93.2 FL (80.0-97.0); Mean Platelet Volume 11.2 FL (9.5-12.2); Monocytes # (A) 0.92 X 10*3/uL (0.20-1.00); NRBC Per 100 WBC 0 X 10*3/uL (0.00-0.01); Neutrophils # (A) 11.59 X 10*3/uL (1.80-7.70); Neutrophils % (A) 75.8 %; Platelet Count 207 X 10*3/uL (140-440); RBC 4.69 X 10*6/uL (4.40-5.60); RDW 14.1 % (11.5-14.5)
[2024-06-08 09:33] LABS: ALT 77 U/L (10-49); AST 51 U/L (14-35); Albumin 2.6 g/dL (3.8-4.9); Albumin/Globulin Ratio 1.18 Ratio (1.60-3.17); Alkaline Phosphatase 60 U/L (41-126); Blood Urea Nitrogen 23.2 mg/dL (9.0-27.0); Calcium 8.2 mg/dL (8.7-10.3); Carbon Dioxide 28.8 mmol/L (21.6-31.8); Chloride 100 mmol/L (96-109); Globulin 2.2 g/dL (1.6-3.3); Glucose 109 mg/dL (70-110); Magnesium 1.8 mg/dL (1.5-2.4); Potassium 4.1 mmol/L (3.5-5.5); Sodium 138 mmol/L (135-145); Total Bilirubin 0.9 mg/dL (0.3-1.2); Total Protein 4.8 g/dL (6.2-8.2)
[2024-06-08 11:58] LABS: Glucose,Whole Blood 144 mg/dL (70-110)
--- NOTE | 2024-06-08 15:20 | P.PN ---
Subjective Progress Note Date: 06/08/24 This is a 79-year-old male with suspected dementia he comes in secondary to a fall and found to be lying on the ground covered in urine and feces patient was confused and had some superficial skin breakdown. Patient terry had called home care to check on the patient he apparently had recently got a COVID flu and pneumonia vaccination all within 1 week. He came into the ER was found to be in atrial fibrillation with rapid ventricular rate. He was started on IV amiodarone and IV Lasix Cardizem drip have been discontinued patient is quite confused saw psychiatry recommending that the son apply for guardianship which is currently pending a hearing next Monday. Heart rate has been si gnificantly improved and he is on a tapering dose of amiodarone. Discharge to rehab has been held as there is no excepting facility they are wanting the guardianship hearing to take place prior to accepting this patient at rehab. Review of Systems Constitutional: Denied any fatigue denied any fever. Cardio vascular: denied any chest pain, palpitations Gastrointestinal: denied any nausea, vomiting, diarrhea Pulmonary: Denied any shortness of breath cough Neurologic denied any new focal deficits All inpatient medications were reviewed and appropriate changes in these medications as dictated in the interval history and assessment and plan. 06/08/2024: Patient seen and evaluated bedside. No acute events overnight. No acute complaints. Patient is medically cleared awaiting authorization. PHYSICAL EXAMINATION: GENERAL: The patient is alert and oriented x2, not in any acute distress. Well developed, well nourished. HEENT: Pupils are round and equally reacting to light. EOMI. No scleral icterus. No conjunctival pallor. Normocephalic, atraumatic. No pharyngeal erythema. No thyromegaly. CARDIOVASCULAR: S1 and S2 present. No murmurs, rubs, or gallops. PULMONARY: Chest is clear to auscultation, no wheezing or crackles. ABDOMEN: Soft, nontender, nondistended, normoactive bowel sounds. No palpable organomegaly. MUSCULOSKELETAL: No joint swelling or deformity. EXTREMITIES: No cyanosis, clubbing, or pedal edema. NEUROLOGICAL: Gross neurological examination did not reveal any focal deficits. SKIN: No rashes. Assessment: Fall Altered mental status due to acute metabolic encephalopathy BPH with bladder outflow obstruction Persistent atrial fibrillation, rapid and uncontrolled: Remains uncontrolled COPD in a previous smoker Hyperlipidemia Essential hypertension, blood pressure running on the lower side. IBS Moderate cognitive impairment. Leukocytosis Plan: Patient remains on an amiodarone taper will continue current cardiac medications at this time cardiology has cleared this patient for discharge, cardiology signed off Patient's mentation has improved however was found to have significant to of impairment and patient's son is petitioning for guardianship and the hearing will be on Monday Patient was set to discharge to subacute rehab 2 days ago, however the rehab is now stating they would not accept this patient until the guardianship hearing is completed so patient will need to remain in the hospital until next Monday at the earliest Patient with no signs/symptoms of infection, afebrile, monitor leukocytosis and follow-up CBC Objective - Vital Signs Vital signs: Vital Signs Temp 97.5 F L 06/08/24 07:53 Pulse 89 06/08/24 07:53 Resp 16 06/08/24 07:53 BP 102/64 06/08/24 07:53 Pulse Ox 95 06/08/24 07:53 FiO2 100 06/04/24 07:56 Intake & Output 06/07/24 06/08/24 06/08/24 18:59 06:59 18:59 Intake Total 354 118 Output Total 800 2750 Balance -446 -2750 118 Intake: Oral 354 118 Output: Urine 800 2750 Other: Voiding Method Indwelling Catheter Indwelling Catheter - Labs CBC & Chem 7: 06/11/24 04:24 06/11/24 04:24 Labs: Abnormal Lab Results - Last 24 Hours (Table) 06/08/24 06/08/24 06/08/24 Range/Units 05:55 05:55 11:57 WBC 15.30 H (4.50-10.00) X 10*3/uL Immature Gran # 0.25 H (0.00-0.04) X 10*3/uL Neutrophils # 11.59 H (1.80-7.70) X 10*3/uL BUN/Creatinine Ratio 29.00 H (12.00-20.00) Ratio POC Glucose (mg/dL) 144 H (70-110) mg/dL Calcium 8.2 L (8.7-10.3) mg/dL AST 51 H (14-35) U/L ALT 77 H (10-49) U/L Total Protein 4.8 L (6.2-8.2) g/dL Albumin 2.6 L (3.8-4.9) g/dL Albumin/Globulin Ratio 1.18 L (1.60-3.17) Ratio Assessment and Plan Assessment: Attestation Attestation/ Casting Machine Service Operator Note: Attestation to Progress Note, Participation (I saw and evaluated the patient with the Resident, and I reviewed and discussed the patient with the Resident and agree with the Resident's findings and plans as documented above., management reviewed and discussed), I agree with findings & plan, Provider Signature (EARL GELLER, MARIBEL Sanchez Time with Patient: Greater than 30
[2024-06-09 09:32] LABS: Blood Urea Nitrogen 20.6 mg/dL (9.0-27.0); Calcium 8.1 mg/dL (8.7-10.3); Carbon Dioxide 30.5 mmol/L (21.6-31.8); Chloride 96 mmol/L (96-109); Glucose 99 mg/dL (70-110); Magnesium 1.8 mg/dL (1.5-2.4); Potassium 4.3 mmol/L (3.5-5.5); Sodium 135 mmol/L (135-145)
[2024-06-09 09:42] LABS: Basophils # (A) 0.05 X 10*3/uL (0.00-0.10); Basophils % (A) 0.3 %; Eosinophils # (A) 0.27 X 10*3/uL (0.04-0.35); Eosinophils % (A) 1.7 %; HCT 43.6 % (39.6-50.0); HGB 14.2 g/dL (13.0-17.0); Lymphocytes # (A) 2.63 X 10*3/uL (0.90-5.00); Lymphocytes % (A) 16.8 %; MCHC 32.6 g/dL (32.0-37.0); MCV 95.2 FL (80.0-97.0); Mean Platelet Volume 11.5 FL (9.5-12.2); Monocytes % (A) 7.7 %; NRBC Per 100 WBC 0 X 10*3/uL (0.00-0.01); Neutrophils # (A) 11.32 X 10*3/uL (1.80-7.70); Neutrophils % (A) 72.2 %; Platelet Count 204 X 10*3/uL (140-440); RBC 4.58 X 10*6/uL (4.40-5.60); RDW 14.1 % (11.5-14.5); WBC 15.68 X 10*3/uL (4.50-10.00)
--- NOTE | 2024-06-09 10:12 | P.PN ---
Subjective Progress Note Date: 06/09/24 This is a 79-year-old male with suspected dementia he comes in secondary to a fall and found to be lying on the ground covered in urine and feces patient was confused and had some superficial skin breakdown. Patient terry had called home care to check on the patient he apparently had recently got a COVID flu and pneumonia vaccination all within 1 week. He came into the ER was found to be in atrial fibrillation with rapid ventricular rate. He was started on IV amiodarone and IV Lasix Cardizem drip have been discontinued patient is quite confused saw psychiatry recommending that the son apply for guardianship which is currently pending a hearing next Monday. Heart rate has been significantly improved and he is on a tapering dose of amiodarone. Discharge to rehab has been held as there is no excepting facility they are wanting the guardianship hearing to take place prior to accepting this patient at rehab. 06/09/2024 Patient remains on the medical floor pending his gaurdianship hearing which is scheduled for monday. No acute events. Labs today reveal a white blood cell count of 15.68, sodium 135, BUN of 28.6, creatinine 1.0, magnesium 1.8. Hemodynamically he is stable and on room air. Remains in rate controlled atrial fibrillation. Review of Systems Constitutional: Denied any fatigue denied any fever. Cardio vascular: denied any chest pain, palpitations Gastrointestinal: denied any nausea, vomiting, diarrhea Pulmonary: Denied any shortness of breath cough Neurologic denied any new focal deficits All inpatient medications were reviewed and appropriate changes in these medications as dictated in the interval history and assessment and plan. PHYSICAL EXAMINATION: GENERAL: The patient is alert and oriented x2, not in any acute distress. Well developed, well nourished. HEENT: Pupils are round and equally reacting to light. EOMI. No scleral icterus. No conjunctival pallor. Normocephalic, atraumatic. No pharyngeal erythema. No thyromegaly. CARDIOVASCULAR: S1 and S2 present. No murmurs, rubs, or gallops. PULMONARY: Chest is clear to auscultation, no wheezing or crackles. ABDOMEN: Soft, nontender, nondistended, normoactive bowel sounds. No palpable organomegaly. MUSCULOSKELETAL: No joint swelling or deformity. EXTREMITIES: No cyanosis, clubbing, or pedal edema. NEUROLOGICAL: Gross neurological examination did not reveal any focal deficits. SKIN: No rashes. Assessment plan: Fall Altered mental status due to acute metabolic encephalopathy BPH with bladder outflow obstruction Persistent atrial fibrillation, rapid and uncontrolled: Remains uncontrolled COPD in a previous smoker Hyperlipidemia Essential hypertension, blood pressure running on the lower side. IBS Moderate cognitive impairment. Full code Plan Status post ZENAIDA with unsuccessful cardioversion Patient remains on an amiodarone taper will continue current cardiac medications at this time cardiology has cleared this patient for discharge Patient's mentation has improved however was found to have significant to of impairment and patient's son is petitioning for guardianship and the hearing will be on Monday Patient was set to discharge to subacute rehab today however the rehab is now stating they would not accept this patient until the guardianship hearing is completed so patient will need to remain in the hospital until next Monday at the earliest White blood cell count is trending upwards will check a urinalysis and chest xray rule out infectious source and repeat labs in the AM. The impression and plan of care has been dictated by Nurse Lew Pra ctitioner as directed, acting only as scribe Dr. Srinivasan MD I have performed a history and physical examination and medical decision making of this patient, discussed the same with the dictator, and agree with the dictators assessment and plan as written, documented as a scribe. Based on total visit time, I have performed more than 50% of this visit. Objective - Vital Signs Vital signs: Vital Signs Temp 97.6 F 06/09/24 07:44 Pulse 81 06/09/24 07:44 Resp 16 06/09/24 07:44 BP 104/63 06/09/24 07:44 Pulse Ox 94 L 06/09/24 07:44 FiO2 100 06/04/24 07:56 Intake & Output 06/08/24 06/09/24 06/09/24 18:59 06:59 18:59 Intake Total 236 118 Output Total 1300 1200 Balance -1064 -1200 118 Intake: Oral 236 118 Output: Urine 1300 1200 Other: Voiding Method Indwelling Catheter Indwelling Catheter Indwelling Catheter # Bowel Movements 1 - Labs CBC & Chem 7: 06/09/24 05:11 06/09/24 05:11 Labs: Abnormal Lab Results - Last 24 Hours (Table) 06/08/24 06/09/2424 Range/Units 11:57 05:11 05:11 WBC 15.68 H (4.50-10.00) X 10*3/uL Immature Gran # 0.21 H (0.00-0.04) X 10*3/uL Neutrophils # 11.32 H (1.80-7.70) X 10*3/uL Monocytes # 1.20 H (0.20-1.00) X 10*3/uL BUN/Creatinine Ratio 20.60 H (12.00-20.00) Ratio POC Glucose (mg/dL) 144 H (70-110) mg/dL Calcium 8.1 L (8.7-10.3) mg/dL
[2024-06-09 12:36] LABS: Appearance,Urine Clear (Clear); Bilirubin,Urine Negative (Negative); Blood,Urine Negative (Negative); Color,Urine Colorless; Glucose,Urine (UA) 2+ (Negative); Ketones,Urine Negative (Negative); Leukocyte Esterase,Urine Negative (Negative); Nitrite,Urine Negative (Negative); PH, Urine 7.5 (5.0-8.0); Protein,Urine Negative (Negative); Specific Gravity,Urine 1.006 (1.001-1.035); Urobilinogen,Urine <2.0 mg/dL (<2.0)
--- NOTE | 2024-06-09 13:04 | XR ---
EXAMINATION TYPE: XR chest 2V DATE OF EXAM: 06/09/2024 12:47 PM CLINICAL INDICATION: Male, 79 years old with history of leukocytosis; COMPARISON: Chest radiographs from 06/01/2024 TECHNIQUE: XR chest 2V Frontal and lateral views of the chest. FINDINGS: Lungs/Pleura: There is no evidence of pleural effusion, focal consolidation, or pneumothorax. Pulmonary vascularity: Unremarkable. Heart/mediastinum: Cardiomediastinal silhouette is unremarkable. Musculoskeletal: No acute osseous pathology. Other findings: None IMPRESSION: No acute cardiopulmonary disease/process. [facility], , 06/09/2024 1:02 PM
--- NOTE | 2024-06-10 11:39 | P.PN ---
Subjective Progress Note Date: 06/10/24 This is a 79-year-old male with suspected dementia he comes in secondary to a fall and found to be lying on the ground covered in urine and feces patient was confused and had some superficial skin breakdown. Patient terry had called home care to check on the patient he apparently had recently got a COVID flu and pneumonia vaccination all within 1 week. He came into the ER was found to be in atrial fibrillation with rapid ventricular rate. He was started on IV amiodarone and IV Lasix Cardizem drip have been discontinued patient is quite confused saw psychiatry recommending that the son apply for guardianship which is currently pending a hearing next Monday. Heart rate has been significantly improved and he is on a tapering dose of amiodarone. Discharge to rehab has been held as there is no excepting facility they are wanting the guardianship hearing to take place prior to accepting this patient at rehab. 06/09/2024 Patient remains on the medical floor pending his gaurdianship hearing which is scheduled for monday. No acute events. Labs today reveal a white blood cell count of 15.68, sodium 135, BUN of 28.6, creatinine 1.0, magnesium 1.8. Hemodynamically he is stable and on room air. Remains in rate controlled atrial fibrillation. Review of Systems Constitutional: Denied any fatigue denied any fever. Cardio vascular: denied any chest pain, palpitations Gastrointestinal: denied any nausea, vomiting, diarrhea Pulmonary: Denied any shortness of breath cough Neurologic denied any new focal deficits All inpatient medications were reviewed and appropriate changes in these medications as dictated in the interval history and assessment and plan. PHYSICAL EXAMINATION: GENERAL: The patient is alert and oriented x2, not in any acute distress. Well developed, well nourished. HEENT: Pupils are round and equally reacting to light. EOMI. No scleral icterus. No conjunctival pallor. Normocephalic, atraumatic. No pharyngeal erythema. No thyromegaly. CARDIOVASCULAR: S1 and S2 present. No murmurs, rubs, or gallops. PULMONARY: Chest is clear to auscultation, no wheezing or crackles. ABDOMEN: Soft, nontender, nondistended, normoactive bowel sounds. No palpable organomegaly. MUSCULOSKELETAL: No joint swelling or deformity. EXTREMITIES: No cyanosis, clubbing, or pedal edema. NEUROLOGICAL: Gross neurological examination did not reveal any focal deficits. SKIN: No rashes. Assessment plan: Fall Altered mental status due to acute metabolic encephalopathy BPH with bladder outflow obstruction Persistent atrial fibrillation, rapid and uncontrolled: Remains uncontrolled COPD in a previous smoker Hyperlipidemia Essential hypertension, blood pressure running on the lower side. IBS Moderate cognitive impairment. Full code Plan Status post ZENAIDA with unsuccessful cardioversion Patient remains on an amiodarone taper will continue current cardiac medications at this time cardiology has cleared this patient for discharge Patient's mentation has improved however was found to have significant to of impairment and patient's son is petitioning for guardianship and the hearing will be on Monday Patient was set to discharge to subacute rehab today however the rehab is now stating they would not accept this patient until the guardianship hearing is completed so patient will need to remain in the hospital until next Monday at the earliest White blood cell count is trending upwardsno findings on urinalysis and checks x-ray. Will follow-up outpatient with movie shot cameraman. Objective - Vital Signs Vital signs: Vital Signs Temp 97.3 F L 06/10/24 07:58 Pulse 85 06/10/24 07:58 Resp 16 06/10/24 07:58 BP 113/64 06/10/24 07:58 Pulse Ox 96 06/10/24 08:40 FiO2 100 06/04/24 07:56 Intake & Output 06/09/24 06/10/24 06/10/24 18:59 06:59 18:59 Intake Total 354 540 118 Output Total 2135 3000 Balance -1781 540 -2882 Intake: Oral 354 540 118 Output: Urine 2135 3000 Other: Voiding Method Indwelling Catheter Indwelling Catheter Indwelling Catheter # Voids 1 # Bowel Movements 1 - Labs CBC & Chem 7: 06/09/24 05:11 06/09/24 05:11 Labs: Abnormal Lab Results - Last 24 Hours (Table) 06/09/24 Range/Units 12:15 Urine Glucose (UA) 2+ H (Negative)
[2024-06-11 08:42] LABS: Basophils # (A) 0.04 X 10*3/uL (0.00-0.10); Basophils % (A) 0.3 %; Eosinophils # (A) 0.17 X 10*3/uL (0.04-0.35); Eosinophils % (A) 1.3 %; HCT 41.8 % (39.6-50.0); HGB 13.5 g/dL (13.0-17.0); Lymphocytes # (A) 2.59 X 10*3/uL (0.90-5.00); MCHC 32.3 g/dL (32.0-37.0); MCV 96.1 FL (80.0-97.0); Mean Platelet Volume 11.5 FL (9.5-12.2); Monocytes # (A) 1.12 X 10*3/uL (0.20-1.00); Monocytes % (A) 8.6 %; NRBC Per 100 WBC 0 X 10*3/uL (0.00-0.01); Neutrophils # (A) 8.88 X 10*3/uL (1.80-7.70); Neutrophils % (A) 68.6 %; Platelet Count 204 X 10*3/uL (140-440); RBC 4.35 X 10*6/uL (4.40-5.60); WBC 12.95 X 10*3/uL (4.50-10.00)
[2024-06-11 08:48] LABS: BUN/Creat Ratio 18.36 Ratio (12.00-20.00); Blood Urea Nitrogen 20.2 mg/dL (9.0-27.0); Carbon Dioxide 29.5 mmol/L (21.6-31.8); Chloride 100 mmol/L (96-109); Glucose 96 mg/dL (70-110); Potassium 4.6 mmol/L (3.5-5.5); Sodium 137 mmol/L (135-145)
--- NOTE | 2024-06-11 20:08 | P.PN ---
Progress Note - Text Progress Note Date: 06/05/24 Chief Complaint: Feeling unwell This is a pleasant 79-year-old patient, follows with Dr. Pelayo. Chronic medical conditions include atrial fibrillation, COPD, hypertension, hyperlipidemia, IBS. She had a combined COVID and flu shot on May 14. After 1 week she got the pneumonia vaccine. For 10 days patient started feeling unwell. Decreased appetite. No fever no chills. No change in bowel pattern. Apparently patient's fianc started get hold with him. In the home care people came to check and patient was found lying on the ground covered in urine and feces. Confused I was not sure how he is got the ground. Some superficial skin breakdown. ER patient is found to be in atrial fibrillation with rapid ventricular rate. Put on a Cardizem drip. June 02: Patient overflowing the ER. A-fib still uncontrolled. Seen by Dr. Sethi earlier. Cardizem drip being discontinued. Started out IV amiodarone drip. Also IV Lasix. Eating fair. June 03: Steroids were discontinued yesterday. Patient delirium is a bit better today. Patient can tell me that he is in the hospital. He knows the name the year the season. He knows that [employer] and Flak[employer] are running for the president. He tells me that he was engaged to his girlfriend but now engagement has been over. I spoke to patient's son today. I am also getting a speech consultation for a more formal heart function evaluation. Psychiatry also was consulted for the same. Dr. Cagle saw the patient and did not feel the patient has higher functioning executive functions. I did speak to the son saying that he should apply for guardianship. Patient does have basic understanding of things. A-fib remains uncontrolled. Remains on amiodarone drip. Patient is probably been getting set up for cardioversion along with ZENAIDA tomorrow. June 04: Up in a chair. Underwent a ZENAIDA. Unsuccessful cardioversion. Patient switched over to oral amiodarone.. Patient did undergo cognitive linguistic test administered by speech therapist. And the following results were obtained attention = severe impairment, visual spatial skills = severe impairment., Member= moderate impairment, executive functions= severe impairment, language= mild impairment. Eating well TE E: Dilated left atrium. Severe global hypokinesis left ventricle. Moderate to severe mitral and moderate tricuspid regurgitation. No pericardial effusion. June 05: Seth table. Tolerating diet. Patient son has applied for guardianship test will be done the court next week. Patient has been accepted at rehab will be going there tomorrow. OBRA completed. Discussed with Dr. Jason Carrillo. Patient's heart rate will go up to 130s up to 140 with ambulation. That is expected to be normal for him. Getting a tapering dose of amiodarone. Patient was to be discharged to the [facility]. But ECF declined that until guardianship established patient cannot be discharged Social history: Lives alone. Has a fianc that visits him. Retired. Smoked in the past. Physical examination: VITAL SIGNS: 98.2, 120, 16, 98 x 57, 98% room air GENERAL: Up in a chair, comfortable EYES: Pupils equal. Conjunctiva loivia l. HEENT: External appearance of nose and ears normal, oral cavity grossly normal. NECK: JVD unable to assess; masses not palpable. HEART: Heart sounds irregular; no edema. LUNGS: Respiratory rate increased; clear to auscultation. ABDOMEN: Soft, nontender, liver spleen not palpable, no masses palpable. Leung catheter with urinary bag PSYCH: Able to answer basic questions. MUSCULOSKELETAL:No Clubbing/cyanosis;muscles-grossly intact. OA INVESTIGATIONS, reviewed in the clinical context: June 05: Potassium 3.5 creatinine 0.98 June 04: White count 7.7 hemoglobin 13.1 platelets 158 potassium 3.7 creatinine 0.82 TSH 1.June 03: White count 7.7 hemoglobin 13.1 platelets 158 potassium 3.7 creatinine 0.82 AST 71 ALT 63 TSH 1.June 02: Sodium 137 potassium 4.4 creatinine 0.81 June 01, 2024: White count 12.7 hemoglobin 13.3 platelets 124 sodium 137 potassium 3.8 BUN 35 creatinine 0.78 EKG tracing personally reviewed by me-atrial fibrillation. Rate 188 Chest x-ray film personally reviewed by me-cardiomegaly. Venous prominence CT brain spine without contrast: Soft tissue swelling posterior occipital cortex. Some chronic changes. CT scan chest abdomen pelvis: Calcified granuloma in the liver and spleen. Minimal gravel or sludge in the gallbladder. Assessment plan: -Patient was found on the ground. Not sure how he got there. Patient was found here to have A-fib with rapid ventricular rate. Likely cause Telemetry -BPH with bladder outflow obstruction Alfuzosin -Persistent atrial fibrillation, rapid and uncontrolled: Expect the heart rate to be 130s to up to 140 with activity. Eliquis. Cardizem drip-discontinued. Cardiology following IV amiodarone changed over to oral amiodarone. Discharged on tapering dose. Lopressor 50 mg 3 times daily ZENAIDA followed by cardioversion : Unsuccessful -COPD in a previous smoker -Hyperlipidemia Mevacor -Essential hypertension, blood pressure running on the lower side. Aldactone, . On Lopressor -IBS -Full code -Moderate cognitive impairment. Evaluated by psychiatry Dr. Cagle.-Not able to do higher functions. Patient's son is looking into guardianship cognitive linguistic test administered by speech therapist. Results: Attention = severe impairment, visual spatial skills = severe impairment., Member= moderate impairment, executive functions= severe impairment, language= mild impairment. Pending guardianship by son then patient will be discharged to the [facility] Past Medical History Past Medical History: Atrial Fibrillation, COPD, CVA/TIA, Hyperlipidemia, H ypertension, Pneumonia Additional Past Medical History / Comment(s): IBS History of Any Multi-Drug Resistant Organisms: None Reported Past Surgical History: Adenoidectomy, Ear Surgery, Tonsillectomy Additional Past Surgical History / Comment(s): dental surgery Past Anesthesia/Blood Transfusion Reactions: No Reported Reaction Past Psychological History: No Psychological Hx Reported Smoking Status: Former smoker Past Alcohol Use History: Occasional Past Drug Use History: None Reported
--- NOTE | 2024-06-11 21:25 | P.PN ---
Progress Note - Text Progress Note Date: 06/11/24 Chief Complaint: Feeling unwell This is a pleasant 79-year-old patient, follows with Dr. Pelayo. Chronic medical conditions include atrial fibrillation, COPD, hypertension, hyperlipidemia, IBS. She had a combined COVID and flu shot on May 14. After 1 week she got the pneumonia vaccine. For 10 days patient started feeling unwell. Decreased appetite. No fever no chills. No change in bowel pattern. Apparently patient's fianc started get hold with him. In the home care people came to check and patient was found lying on the ground covered in urine and feces. Confused I was not sure how he is got the ground. Some superficial skin breakdown. ER patient is found to be in atrial fibrillation with rapid ventricular rate. Put on a Cardizem drip. June 02: Patient overflowing the ER. A-fib still uncontrolled. Seen by Dr. Sethi earlier. Cardizem drip being discontinued. Started out IV amiodarone drip. Also IV Lasix. Eating fair. June 03: Steroids were discontinued yesterday. Patient delirium is a bit better today. Patient can tell me that he is in the hospital. He knows the name the year the season. He knows that [employer] and [employer] are running for the president. He tells me that he was engaged to his girlfriend but now engagement has been over. I spoke to patient's son today. I am also getting a speech consultation for a more formal heart function evaluation. Psychiatry also was consulted for the same. Dr. Cagle saw the patient and did not feel the patient has higher functioning executive functions. I did speak to the son saying that he should apply for guardianship. Patient does have basic understanding of things. A-fib remains uncontrolled. Remains on amiodarone drip. Patient is probably been getting set up for cardioversion along with ZENAIDA tomorrow. June 04: Up in a chair. Underwent a ZENAIDA. Unsuccessful cardioversion. Patient switched over to oral amiodarone.. Patient did undergo cognitive linguistic test administered by speech therapist. And the following results were obtained attention = severe impairment, visual spatial skills = severe impairment., Member= moderate impairment, executive functions= severe impairment, language= mild impairment. Eating well TE E: Dilated left atrium. Severe global hypokinesis left ventricle. Moderate to severe mitral and moderate tricuspid regurgitation. No pericardial effusion. June 05: Seth table. Tolerating diet. Patient son has applied for guardianship test will be done the court next week. Patient has been accepted at rehab will be going there tomorrow. OBRA completed. Discussed with Dr. Jason Carrillo. Patient's heart rate will go up to 130s up to 140 with ambulation. That is expected to be normal for him. Getting a tapering dose of amiodarone. Patient was to be discharged to the ECF. But ECF declined that until guardianship established patient cannot be discharged June 11: Comfortable. Tolerating diet. Able to hold a simple conversation. Patient certainly going to the court tomorrow to obtain guardianship. Then patient can go to rehab. Patient is working with therapy with the meantime. Active Medications Acetaminophen (Acetaminophen Tab 325 Mg Tab) 650 mg PO Q6HR PRN PRN Reason: Mild Pain or Fever > 100.5 Albuterol/Ipratropium (Ipratropium-Albuterol 3 Ml Neb) 3 ml INHALATION RT-QID PRN PRN Reason: Shortness Of Breath Or Wheezing Last Admin: 06/04/24 08:11 Dose: 3 ml Alprazolam (Alprazolam 0.25 Mg Tab) 0.25 mg PO Q6HR PRN PRN Reason: Anxiety Amiodarone HCl (Amiodarone 200 Mg Tab) 400 mg PO BID [facility] Last Admin: 06/11/24 20:31 Dose: 400 mg Apixaban (Apixaban 5 Mg Tab) 5 mg PO BID [facility]; Protocol Last Admin: 06/11/24 20:29 Dose: 5 mg Ascorbic Acid (Ascorbic Acid 500 Mg Tab) 1,000 mg PO [facility] Last Admin: 06/11/24 20:29 Dose: 1,000 mg Atorvastatin Calcium (Atorvastatin 10 Mg Tab) 40 mg PO HS [facility] Last Admin: 06/11/24 20:29 Dose: 40 mg Benzocaine (Benzocaine [place] 1 Can) 1 spray TOPICAL TID PRN PRN Reason: Skin Irritation Calcium Carbonate/Glycine (Calcium Carbonate 500 Mg Chewable) 1,000 mg PO Q4HR PRN PRN Reason: Dyspepsia Dapagliflozin (Dapagliflozin Propanediol 10 Mg Tablet) 10 mg PO DAILY [facility] Last Admin: 06/11/24 08:00 Dose: 10 mg Lactulose (Lactulose 20 Gm/30 Ml Cup) 20 gm PO DAILY PRN PRN Reason: Constipation Loperamide HCl (Loperamide 2 Mg Cap) 2 mg PO Q2HR PRN PRN Reason: Loose Stool Melatonin (Melatonin 3 Mg Tablet) 3 mg PO HS PRN PRN Reason: Insomnia Metoprolol Tartrate (Metoprolol Tartrate 25 Mg Tab) 75 mg PO TID [facility] Last Admin: 06/11/24 20:35 Dose: 75 mg Mirtazapine (Mirtazapine 15 Mg Tab) 7.5 mg PO HS [facility] Last Admin: 06/11/24 20:30 Dose: 7.5 mg Naloxone HCl (Naloxone 0.4 Mg/Ml 1 Ml Vial) 0.2 mg IV Q2M PRN PRN Reason: Opioid Reversal Ondansetron HCl (Ondansetron 4 Mg/2 Ml Vial) 4 mg IVP Q8HR PRN PRN Reason: Nausea And Vomiting Petrolatum (Zinc Oxide Paste (Z-Guard) 1 Applic) 1 applic TOPICAL BID PRN; Protocol PRN Reason: Wound Healing Spironolactone (Spironolactone 25 Mg Tab) 25 mg PO DAILY [facility] Last Admin: 06/11/24 10:00 Dose: Not Given Tamsulosin HCl (Tamsulosin 0.4 Mg Cap.Er.24h) 0.4 mg PO HS [facility] Last Admin: 06/11/24 20:29 Dose: 0.4 mg Social history: Lives alone. Has a fianc that visits him. Retired. Smoked in the past. Physical examination: VITAL SIGNS: 97.5, 85, 14, 88 x 61, 100% room air GENERAL: Reclining in bed, comfortable EYES: Pupils equal. Conjunctiva olivia l. HEENT: External appearance of nose and ears normal, oral cavity grossly normal. NECK: JVD unable to assess; masses not palpable. HEART: Heart sounds irregular; no edema. LUNGS: Respiratory rate increased; clear to auscultation. ABDOMEN: Soft, nontender, liver spleen not palpable, no masses palpable. Leung catheter with urinary bag PSYCH: Able to answer basic questions. MUSCULOSKELETAL:No Clubbing/cyanosis;muscles-grossly intact. OA INVESTIGATIONS, reviewed in the clinical context: June 11: White count 12.9 hemoglobin 13.5 potassium 4.6 creatinine 1.1 June 05: Potassium 3.5 creatinine 0.98 June 04: White count 7.7 hemoglobin 13.1 platelets 158 potassium 3.7 creatinine 0.82 TSH .June 03: White count 7.7 hemoglobin 13.1 platelets 158 potassium 3.7 creatinine 0.82 AST 71 ALT 63 TSH 1.June 02: Sodium 137 potassium 4.4 creatinine 0.81 June 01, 2024: White count 12.7 hemoglobin 13.3 platelets 124 sodium 137 potassium 3.8 BUN 35 creatinine 0.78 EKG tracing personally reviewed by me-atrial fibrillation. Rate 188 Chest x-ray film personally reviewed by me-cardiomegaly. Venous prominence CT brain spine without contrast: Soft tissue swelling posterior occipital cortex. Some chronic changes. CT scan chest abdomen pelvis: Calcified granuloma in the liver and spleen. Minimal gravel or sludge in the gallbladder. Assessment plan: -Patient was found on the ground. Not sure how he got there. Patient was found here to have A-fib with rapid ventricular rate. Likely cause Telemetry -BPH with bladder outflow obstruction Alfuzosin -Persistent atrial fibrillation, rapid and uncontrolled: Expect the heart rate to be 130s to up to 140 with activity. Eliquis. Cardizem drip-discontinued. Cardiology following amiodarone. Discharged on tapering dose. Lopressor 75 mg 3 times daily ZENAIDA followed by cardioversion : Unsuccessful -COPD in a previous smoker -Hyperlipidemia Mevacor -Essential hypertension, blood pressure running on the lower side. Hold off Lasix.. Hold Aldactone, . On Lopressor -IBS -Full code -Moderate cognitive impairment. Evaluated by psychiatry Dr. Cagle.-Not able to do higher functions. Patient's son is looking into guardianship cognitive linguistic test administered by speech therapist. Results: Attention = severe impairment, visual spatial skills = severe impairment., Member= moderate impairment, executive functions= severe impairment, language= mild impairment. Pending guardianship by son tomorrow/Monday. Then patient will be discharged to the [facility] Past Medical History Past Medical History: Atrial Fibrillation, COPD, CVA/TIA, Hyperlipidemia, Hypertension, Pneumonia Additional Past Medical History / Comment(s): IBS History of Any Multi-Drug Resistant Organisms: None Reported Past Surgical History: Adenoidectomy, Ear Surgery, Tonsillectomy Additional Past Surgical History / Comment(s): dental surgery Past Anesthesia/Blood Transfusion Reactions: No Reported Reaction Past Psychological History: No Psychological Hx Reported Smoking Status: Former smoker Past Alcohol Use History: Occasional Past Drug Use History: None Reported
[2024-06-12] MEDS: AMIODARONE 200 MG TAB PO SCH (10:11)
[2024-06-12] MEDS: SPIRONOLACTONE 25 MG TAB PO SCH (10:16)
[2024-06-12 12:09] VITALS: BP 93/62; PULSE 81; RESP 14; TEMP 98
--- NOTE | 2024-06-12 13:05 | P.DS ---
Providers Date of admission: 05/31/24 17:32 Expected date of discharge: 06/12/24 Attending physician: Jesse Sosa Consults: 06/03/24 11:29 Consult Physician Routine Consulting Provider: Brian Cagle Consult Reason/Comments: assess mental state Do you want consulting provider notified?: Yes Primary care physician: [facility] Course: Chief Complaint: Feeling unwell This is a pleasant 79-year-old patient, follows with Dr. Pelayo. Chronic medical conditions include atrial fibrillation, COPD, hypertension, hyperlipidemia, IBS. She had a combined COVID and flu shot on May 14. After 1 week she got the pneumonia vaccine. For 10 days patient started feeling unwell. Decreased appetite. No fever no chills. No change in bowel pattern. Apparently patient's fianc started get hold with him. In the home care people came to check and patient was found lying on the ground covered in urine and feces. Confused I was not sure how he is got the ground. Some superficial skin breakdown. ER patient is found to be in atrial fibrillation with rapid ventricular rate. Put on a Cardizem drip. June 02: Patient overflowing the ER. A-fib still uncontrolled. Seen by Dr. Sethi earlier. Cardizem drip being discontinued. Started out IV amiodarone drip. Also IV Lasix. Eating fair. June 03: Steroids were discontinued yesterday. Patient delirium is a bit better today. Patient can tell me that he is in the hospital. He knows the name the year the season. He knows that [email or web address] and [employer] are running for the president. He tells me that he was engaged to his girlfriend but now engagement has been over. I spoke to patient's son today. I am also getting a speech consultation for a more formal heart function evaluation. Psychiatry also was consulted for the same. Dr. Cagle saw the patient and did not feel the patient has higher functioning executive functions. I did speak to the son saying that he should apply for guardianship. Patient does have basic understanding of things. A-fib remains uncontrolled. Remains on amiodarone drip. Patient is probably been getting set up for cardioversion along with ZENAIDA tomorrow. June 04: Up in a chair. Underwent a ZENAIDA. Unsuccessful cardioversion. Patient switched over to oral amiodarone.. Patient did undergo cognitive linguistic test administered by speech therapist. And the following results were obtained attention = severe impairment, visual spatial skills = severe impairment., Member= moderate impairment, executive functions= severe impairment, language= mild impairment. Eating well TE E: Dilated left atrium. Severe global hypokinesis left ventricle. Moderate to severe mitral and moderate tricuspid regurgitation. No pericardial effusion. June 05: Seth table. Tolerating diet. Patient son has applied for guardianship test will be done the court next week. Patient has been accepted at rehab will be going there tomorrow. OBRA completed. Discussed with Dr. Jason Carrillo. Patient's heart rate will go up to 130s up to 140 with ambulation. That is expected to be normal for him. Getting a tapering dose of amiodarone. Patient was to be discharged to the ECF. But ECF declined that until guardianship established patient cannot be discharged June 11: Comfortable. Tolerating diet. Able to hold a simple conversation. Patient certainly going to the court tomorrow to obtain guardianship. Then patient can go to rehab. Patient is working with therapy with the meantime. June 12: Up in bed. Eating. Did work with therapy. Otherwise comfortable. Son is obtaining guardianship" today. Charge to rehab today. Prior Auth obtained. Social history: Lives alone. Has a fianc that visits him. Retired. Smoked in the past. Physical examination: VITAL SIGNS: 98, 81, 14, 93 x 62, 97% room air GENERAL: Reclining in bed, eating EYES: Pupils equal. Conjunctiva olivia l. HEENT: External appearance of nose and ears normal, oral cavity grossly normal. NECK: JVD unable to assess; masses not palpable. HEART: Heart sounds irregular; no edema. LUNGS: Respiratory rate increased; clear to auscultation. ABDOMEN: Soft, nontender, liver spleen not palpable, no masses palpable. Leung catheter with urinary bag PSYCH: Able to answer basic questions. MUSCULOSKELETAL:No Clubbing/cyanosis;muscles-grossly intact. OA INVESTIGATIONS, reviewed in the clinical context: June 11: White count 12.9 hemoglobin 13.5 potassium 4.6 creatinine 1.1 June 04: White count 7.7 hemoglobin 13.1 platelets 158 potassium 3.7 creatinine 0.82 TSH 1.19 June 03: White count 7.7 hemoglobin 13.1 platelets 158 potassium 3.7 creatinine 0.82 AST 71 ALT 63 TSH 1.19 June 01, 2024: White count 12.7 hemoglobin 13.3 platelets 124 sodium 137 potassium 3.8 BUN 35 creatinine 0.78 EKG tracing personally reviewed by me-atrial fibrillation. Rate 188 Chest x-ray film personally reviewed by me-cardiomegaly. Venous prominence CT brain spine without contrast: Soft tissue swelling posterior occipital cortex. Some chronic changes. CT scan chest abdomen pelvis: Calcified granuloma in the liver and spleen. Minimal gravel or sludge in the gallbladder. Assessment plan: -Patient was found on the ground. Not sure how he got there. Patient was found here to have A-fib with rapid ventricular rate. Likely cause Telemetry -BPH with bladder outflow obstruction Alfuzosin -Persistent atrial fibrillation, rapid and uncontrolled: Expect the heart rate to be 130s to up to 140 with activity. Eliquis. Cardizem drip-discontinued. Cardiology following amiodarone. . Lopressor 75 mg 3 times daily ZENAIDA followed by cardioversion : Unsuccessful -COPD in a previous smoker -Hyperlipidemia Mevacor -Essential hypertension, blood pressure running on the lower side. Hold off Lasix.. Hold Aldactone, . On Lopressor -IBS -Full code -Moderate cognitive impairment. Evaluated by psychiatry Dr. Cagle.-Not able to do higher functions. cognitive linguistic test administered by speech therapist. Results: Attention = severe impairment, visual spatial skills = severe impairment., Member= moderate impairment, executive functions= severe impairment, language= mild impairment. -Guardianship: Public guardian and Ciro [son] Disposition: Rehab at [facility] Past Medical History Past Medical History: Atrial Fibrillation, COPD, CVA/TIA, Hyperlipidemia, Hypertension, Pneumonia Additional Past Medical History / Comment(s): IBS History of Any Multi-Drug Resistant Organisms: None Reported Past Surgical History: Adenoidectomy, Ear Surgery, Tonsillectomy Additional Past Surgical History / Comment(s): dental surgery Past Anesthesia/Blood Transfusion Reactions: No Reported Reaction Past Psychological History: No Psychological Hx Reported Smoking Status: Former smoker Past Alcohol Use History: Occasional Past Drug Use History: None Reported Plan - Discharge Summary Discharge Rx Participant: No New Discharge Prescriptions: New Dapagliflozin Propanediol [Farxiga] 10 mg PO DAILY #30 tab Amiodarone [Cordarone] 200 mg PO DAILY tab Metoprolol Tartrate [Lopressor] 75 mg PO TID tab Continue Lovastatin [Mevacor] 40 mg PO HS Apixaban [Eliquis] 5 mg PO BID #60 tab Ascorbic Acid [Vitamin C] 1,000 mg PO HS Alfuzosin HCl [Alfuzosin HCl ER] 10 mg PO HS Cholecalciferol [Vitamin D3 (25 Mcg = 1000 Iu)] 25 mcg PO DAILY Diphenox-Atrop 2.5-0.025 mg [Lomotil] 1 tab PO TID PRN #3 tab PRN Reason: Diarrhea Changed Spironolactone [Aldactone] 12.5 mg PO DAILY #0 Discontinued Zinc Gluconate [Zinc] 50 mg PO DAILY lisinopriL [Zestril] 5 mg PO DAILY Metoprolol Tartrate [Lopressor] 25 mg PO BID Discharge Medication List Lovastatin [Mevacor] 40 mg PO HS 02/18/15 [History] Apixaban [Eliquis] 5 mg PO BID #60 tab 06/24/20 [Rx] Ascorbic Acid [Vitamin C] 1,000 mg PO HS 07/28/20 [History] Alfuzosin HCl [Alfuzosin HCl ER] 10 mg PO HS 10/20/23 [History] Cholecalciferol [Vitamin D3 (25 Mcg = 1000 Iu)] 25 mcg PO DAILY 05/31/24 [History] Dapagliflozin Propanediol [Farxiga] 10 mg PO DAILY #30 tab 06/05/24 [Rx] Diphenox-Atrop 2.5-0.025 mg [Lomotil] 1 tab PO TID PRN #3 tab 06/06/24 [Rx] Amiodarone [Cordarone] 200 mg PO DAILY tab 06/12/24 [Rx] Metoprolol Tartrate [Lopressor] 75 mg PO TID tab 06/12/24 [Rx] Spironolactone [Aldactone] 12.5 mg PO DAILY #0 06/12/24 [Rx] Follow up Appointment(s)/Referral(s): Silver Sethi MD [Medical Doctor] - 3 Weeks Brian Pelayo DO [Primary Care Provider] - 1-2 days Activity/Diet/Wound Care/Special Instructions: Shakeel Galeas [facility] P: [phone]
== END 2024-06-12 17:07 | DRG 308 ==
LOC: EC 14:33 → SUPCPDRO 14:33 → 3SCARD 17:32 → EEVIPCON 17:32 → 3SCARD 22:02 → 2SICU 06-04 08:08 → 3SCARD 06-04 08:13 → 6NMEDSUR 06-05 22:26
PROVIDERS: ADMIT Hospitalist; ATTEND Hospitalist
PROC: 3E033RZ Introduction of Antiarrhythmic into Peripheral Vein, Percutaneous Approach (ICD-10-PCS; 2024-06-02)
PROC: B246ZZ4 Ultrasonography of Right and Left Heart, Transesophageal (ICD-10-PCS; 2024-06-04)
PROC: 5A2204Z Restoration of Cardiac Rhythm, Single (ICD-10-PCS; principal; 2024-06-04 07:30)
DX: I48.21 Permanent atrial fibrillation (principal); G93.41 Metabolic encephalopathy; I50.23 Acute on chronic systolic (congestive) heart failure; M62.82 Rhabdomyolysis; F03.93 Unspecified dementia, unspecified severity, with mood disturbance; F03.94 Unspecified dementia, unspecified severity, with anxiety; J44.0 Chronic obstructive pulmonary disease with (acute) lower respiratory infection; E78.5 Hyperlipidemia, unspecified; E86.0 Dehydration; F32.A Depression, unspecified; F43.20 Adjustment disorder, unspecified; I08.3 Combined rheumatic disorders of mitral, aortic and tricuspid valves; I11.0 Hypertensive heart disease with heart failure; I45.10 Unspecified right bundle-branch block; J20.9 Acute bronchitis, unspecified; K58.9 Irritable bowel syndrome, unspecified; N32.0 Bladder-neck obstruction; R09.02 Hypoxemia; N40.0 Benign prostatic hyperplasia without lower urinary tract symptoms; W19.XXXA Unspecified fall, initial encounter; Y92.009 Unspecified place in unspecified non-institutional (private) residence as the place of occurrence of the external cause; Z79.01 Long term (current) use of anticoagulants; Z79.899 Other long term (current) drug therapy; Z87.891 Personal history of nicotine dependence; Z86.73 Personal history of transient ischemic attack (TIA), and cerebral infarction without residual deficits; Z82.49 Family history of ischemic heart disease and other diseases of the circulatory system
CPT/HCPCS: 36415; 51702; 70450; 71046; 71260; 72125; 74177; 80048; 80053; 81001; 81003; 82550; 83605; 83690; 83735; 83880; 84100; 84443; 84450; 84460; 84484; 85025; 85610; 85730; 92960; 93005; 93306; 93312; 93320; 93325; 94002; 94640; 94760; 96365; 96366; 96367; 96368; 96375; 96376; 99291

== ENCOUNTER 2024-07-24 05:54 | Day surgery (SDC) | payer MEDICARE, OTHER ==
[2024-07-24] MEDS ORDERED: ONDANSETRON 4 MG/2 ML VIAL IVP ONE (06:16)
[2024-07-24] MEDS ORDERED: DEXAMETHASONE SOD PHOSPHATE 4 MG/ML 1 ML VIAL IV ONE (06:16)
[2024-07-24] MEDS: IV FLUID CONTINUATION 500 ML IV ONE (06:17)
[2024-07-24 06:50] VITALS: TEMP 97.5
[2024-07-24] MEDS: SODIUM CHLORIDE 0.9% 500 ML 500 ML IV SCH (06:54)
[2024-07-24] MEDS: LACTATED RINGERS 1,000 ML IV SCH (06:54)
[2024-07-24] MEDS ORDERED: HYDROmorphone 0.5 MG/0.5 ML SYRINGE IVP PRN (07:00)
[2024-07-24 07:09] LABS: African American GFR (CKD) 79 (>60 ml/min/1.73 sqM); Anion Gap 2 mmol/L; Blood Urea Nitrogen 25 mg/dL (9-20); Calcium 8.4 mg/dL (8.4-10.2); Carbon Dioxide 28 mmol/L (22-30); Chloride 108 mmol/L (98-107); Glucose 94 mg/dL (74-99); Non-African American GFR(CKD) 69 (>60 ml/min/1.73 sqM); Potassium 4.1 mmol/L (3.5-5.1); Sodium 138 mmol/L (137-145)
[2024-07-24] MEDS ORDERED: PROPOFOL 10 MG/ML 20 ML VIAL IV ONE (07:15)
[2024-07-24] MEDS ORDERED: LIDOCAINE 1% INJ 10MG/ML (20 ML MDV) ONE (07:15)
[2024-07-24] MEDS ORDERED: MELATONIN 3 MG TABLET PO PRN (07:33)
--- NOTE | 2024-07-24 07:37 | P.PCN ---
Date of Procedure: 07/24/24 Description of Procedure: Cardioversion: After explaining the procedure to the patient as well as the risks and the complications, his blood pressure, heart rate and O2 saturation was monitored, he received sedation per anesthesia department. Cardioversion was performed using synchronized 150 J with gnosticist of sinus mechanism, there was no immediate complications.
[2024-07-24 08:57] VITALS: BP 105/67; PULSE 53; RESP 16
[2024-07-24] MEDS ORDERED: SPIRONOLACTONE 25 MG TAB PO SCH (09:00)
[2024-07-24] MEDS ORDERED: TAMSULOSIN 0.4 MG CAP.ER.24H PO SCH (09:00)
[2024-07-24] MEDS ORDERED: METOPROLOL TARTRATE 25 MG TAB PO SCH (16:00)
[2024-07-24] MEDS ORDERED: MIRTAZAPINE 15 MG TAB PO SCH (21:00)
[2024-07-24] MEDS ORDERED: APIXABAN 5 MG TAB PO SCH (21:00)
[2024-07-24] MEDS ORDERED: ATORVASTATIN 10 MG TAB PO SCH (21:00)
[2024-07-25] MEDS ORDERED: AMIODARONE 200 MG TAB PO SCH (09:00)
[2024-07-25] MEDS ORDERED: DAPAGLIFLOZIN PROPANEDIOL 10 MG TABLET PO SCH (09:00)
== END 2024-07-24 08:57 | disposition home or self-care (01) ==
LOC: OR 05:54
PROVIDERS: ATTEND Internal Medicine Interventional Cardiology
DX: I48.11 Longstanding persistent atrial fibrillation (principal); I10 Essential (primary) hypertension; E78.5 Hyperlipidemia, unspecified; I42.8 Other cardiomyopathies; Z79.01 Long term (current) use of anticoagulants; Z79.899 Other long term (current) drug therapy
CPT/HCPCS: 92960; 80048; J2003; J2704